=== PATIENT | male | born 1970 | race Caucasian/White ===

== ENCOUNTER 2016-10-29 22:33 | Emergency (ER) | payer SELFPAY ==
[~2016-10-29] VITALS: Ht 175.3 cm; Wt 90.7 kg
[~2016-10-29 22:33] MED LIST: ALBU17AE3 IH; BUDE6HFA IH; CEFU500T PO; CODE118S2 PO; NAPR500T PO; TIOT18CA IH
--- OUTSIDE RECORDS SUMMARY | 2016-10-29 22:41 | XMS REPORT ---
Author Author EMY GARCIA Organization [employer] Address Unknown Phone Unavailable Care Team Providers Care Cage Clerk Name Role Phone EMY GARCIA CP Unavailable Allergies No Known Allergies Problems Problem Type Condition Code Onset Dates Condition Status Problem Chronic obstructive pulmonary disease, unspecified COPD type J44.9 Active Problem Lumbago M54.5 Active Problem Asthma J45.909 Active Problem Tobacco abuse Z72.0 Active Problem Mental health disorder F99 Active Medications Medication Code System Code Instructions Start Date End Date Status Dosage ProAir HFA [facility] [address]-31 90 mcg/actuation Inhalation every 4 hrs Feb 2 puffs as needed Symbicort [facility] [address]-78 160-4.5 mcg/actuation Inhalation Twice a day Apr 27, 2014 June 26, 2015 inhale 1 puff by inhalation route 1 times per day in the morning and evening Results No Known Results Summary Purpose [employer] Submission
--- OUTSIDE RECORDS SUMMARY | 2016-10-29 22:41 | XMS REPORT | Continuity of Care Document ---
Author Author [facility] Organization [facility] Address Unknown Phone Unavailable Care Team Providers Care Strategy Specialist Name Role Phone Unverified, Unverified PCP Unavailable Source Comments Some departments are not documenting in the electronic medical record. If you do not see the information that you expected, contact Release of Information in the Health Information Management department at [phone] for further assistance in locating additional records.[facility] Active Allergies and Adverse Reactions Not on File Current Medications Not on file Active Problems Problem Noted Date Closed fracture of metacarpal bone(s), site unspecified 03/01/2008 Social History Tobacco Use Types Packs/Day Years Used Date Never Assessed Plan of Care Health Maintenance Due Date Last Done Comments Physical (Comprehensive) 1976 Exam Pertussis Vaccine 1980 Tetanus Vaccine 1986 Influenza Vaccine 12/18/2016 Results from Last 3 Months Not on file
--- OUTSIDE RECORDS SUMMARY | 2016-10-29 22:42 | XMS REPORT | Continuity of Care Document ---
Author Author [facility] Organization [facility] Address Unknown Phone Unavailable Allergies Active Description Code Type Severity Reaction Onset Reported/Identified Relationship to Patient Clinical Status Yes haloperidol [id number] Drug Allergy Unknown N/A 06/18/2011 Yes Haloperidol Lactate [id number] Drug Allergy Unknown N/A 06/18/2011 Yes Haldol Drug Allergy 04/01/2012 Yes Haldol Drug Allergy N/A N/A 04/01/2012 Medications Problems Date Dx Coded Attending Type Code Diagnosis Diagnosed By 05/13/2010 BRADY DO CHECO K 724.2 Lower Back Pain 05/13/2010 ABREU DO, CHECO K 724.4 LUMBAR RADICULOPATHY 05/13/2010 ABREU DO, CHECO K 724.8 Back Muscle Spasm 05/13/2010 724.2 Lower Back Pain 05/13/2010 724.4 LUMBAR RADICULOPATHY 05/13/2010 724.8 Back Muscle Spasm 05/13/2010 ABREU DO, CHECO K 724.2 Lower Back Pain 05/13/2010 ABREU DO, CHECO K 724.4 LUMBAR RADICULOPATHY 05/13/2010 ABREU DO, CHECO K 724.8 Back Muscle Spasm 05/13/2010 ABREU DO, CHECO K 724.2 Lower Back Pain 05/13/2010 ABREU DO, CHECO K 724.4 LUMBAR RADICULOPATHY 05/13/2010 ABREU DO, CHECO K 724.8 Back Muscle Spasm 05/13/2010 ABREU DO, CHECO K 724.2 Lower Back Pain 05/13/2010 ABREU DO, CHECO K 724.4 LUMBAR RADICULOPATHY 05/13/2010 ABREU DO, CHECO K 724.8 Back Muscle Spasm 05/13/2010 ABREU DO, CHECO K 724.2 Lower Back Pain 05/13/2010 ABREU DO, CHECO K 724.4 LUMBAR RADICULOPATHY 05/13/2010 ABREU DO, CHECO K 724.8 Back Muscle Spasm 05/13/2010 ARCHANA ZAMBRANO MD 724.2 Lower Back Pain 05/13/2010 ARCHANA ZAMBRANO MD 72Do.4 LUMBAR RADICULOPATHY 05/13/2010 ARCHANA ZAMBRANO MD 72oD.8 Back Muscle Spasm 12/02/2010 ABREU DO CHECO K 305.1 Nicotine Dependence 12/02/2010 ABREU DO CHECO K 496 Chronic Obstructive Pulmonary Disease 12/02/2010 ABREU DO CHECO K V65.42 Intervention And Counseling On Cessation Of Tobacco Use 12/02/2010 305.1 Nicotine Dependence 12/02/2010 496 Chronic Obstructive Pulmonary Disease 12/02/2010 V65.42 Intervention And Counseling On Cessation Of Tobacco Use 12/02/2010 ABREU DO CHECO K 305.1 Nicotine Dependence 12/02/2010 ABREU DO CHECO K 496 Chronic Obstructive Pulmonary Disease 12/02/2010 ABREU DO CHECO K V65.42 Intervention And Counseling On Cessation Of Tobacco Use 12/02/2010 ABREU DO CHECO K 305.1 Nicotine Dependence 12/02/2010 ABREU DO CHECO K 496 Chronic Obstructive Pulmonary Disease 12/02/2010 ABREU DO CHECO K V65.42 Intervention And Counseling On Cessation Of Tobacco Use 12/02/2010 ABREU DO CHECO K 305.1 Nicotine Dependence 12/02/2010 ABREU DO CHECO K 496 Chronic Obstructive Pulmonary Disease 12/02/2010 ABREU DO CHECO K V65.42 Intervention And Counseling On Cessation Of Tobacco Use 12/02/2010 ABREU DO CHECO K 305.1 Nicotine Dependence 12/02/2010 ABREU DO CHECO K 496 Chronic Obstructive Pulmonary Disease 12/02/2010 ABREU DO CHECO K V65.42 Intervention And Counseling On Cessation Of Tobacco Use 12/02/2010 ARCHANA ZAMBRANO MD 305.1 Nicotine Dependence 12/02/2010 ARCHANA ZAMBRANO MD 49Andrea Chronic Obstructive Pulmonary Disease 12/02/2010 ARCHANA ZAMBRANO MD V65.42 Intervention And Counseling On Cessation Of Tobacco Use 01/02/2011 ABREU DO CHECO K 780.57 Unspecified Sleep Apnea 01/02/2011 ABREU DO CHECO K 786.2 Cough 01/02/2011 SHY ABREU DOA Tamar 789.02 Abdominal Pain Left Upper Quadrant 01/02/2011 780.57 Unspecified Sleep Apnea 01/02/2011 786.2 Cough 01/02/2011 789.02 Abdominal Pain Left Upper Quadrant 01/02/2011 ABREU DO, CHECO K 780.57 Unspecified Sleep Apnea 01/02/2011 ABREU DO, CHECO K 786.2 Cough 01/02/2011 ABREU DO, CHECO K 789.02 Abdominal Pain Left Upper Quadrant 01/02/2011 ABREU DO, CHECO K 780.57 Unspecified Sleep Apnea 01/02/2011 ABREU DO, CHECO K 786.2 Cough 01/02/2011 ABREU DO, CHECO K 789.02 Abdominal Pain Left Upper Quadrant 01/02/2011 ABREU DO, CHECO K 780.57 Unspecified Sleep Apnea 01/02/2011 ABREU DO, CHECO K 786.2 Cough 01/02/2011 ABREU DO, CHECO K 789.02 Abdominal Pain Left Upper Quadrant 01/02/2011 ABREU DO, CHECO K 780.57 Unspecified Sleep Apnea 01/02/2011 ABREU DO, CHECO K 786.2 Cough 01/02/2011 ABREU DO, CHECO K 789.02 Abdominal Pain Left Upper Quadrant 01/02/2011 ARCHANA ZAMBRANO MD 780.57 Unspecified Sleep Apnea 01/02/2011 ARCHANA ZAMBRANO MD 786.2 Cough 01/02/2011 ARCHANA ZAMBRANO MD 789.02 Abdominal Pain Left Upper Quadrant 02/05/2011 ABREU DO, CHECO K 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 02/05/2011 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 02/05/2011 ABREU DO, CHECO K 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0 CHRONIC BRONCHITIS - SIMPLE 05/18/2011 ABREU DO, CHECO K 493.90 ASTHMA UNSPECIFIED 05/18/2011 ABREU DO, CHECO K 491.0 CHRONIC BRONCHITIS - SIMPLE 05/18/2011 ABREU DO, CHECO K 493.90 ASTHMA UNSPECIFIED 05/18/2011 ABREU DO, CHECO K 491.0 CHRONIC BRONCHITIS - SIMPLE 05/18/2011 ABREU DO CHECO K 493.90 ASTHMA UNSPECIFIED 05/18/2011 ARCHANA ZAMBRANO MD 491.0 CHRONIC BRONCHITIS - SIMPLE 05/18/2011 ARCHANA ZAMBRANO MD 493.90 ASTHMA UNSPECIFIED 06/18/2011 Ot 553.1 UMBILICAL HERNIA 04/01/2012 SHY ABREU DOA K 553.1 UMBILICAL HERNIA WITHOUT OBSTRUCTION OR GANGRENE 04/01/2012 553.1 UMBILICAL HERNIA WITHOUT OBSTRUCTION OR GANGRENE 04/01/2012 SHY ABREU DOA K 553.1 UMBILICAL HERNIA WITHOUT OBSTRUCTION OR GANGRENE 04/01/2012 SHY ABREU DOA K 553.1 UMBILICAL HERNIA WITHOUT OBSTRUCTION OR GANGRENE 04/01/2012 SHY ABREU DOA K 553.1 UMBILICAL HERNIA WITHOUT OBSTRUCTION OR GANGRENE 04/01/2012 ABREU DO CHECO K 553.1 UMBILICAL HERNIA WITHOUT OBSTRUCTION OR GANGRENE 06/03/2012 719.41 PAIN IN JOINT INVOLVING SHOULDER REGION 06/03/2012 SHY ABREU DOA K 719.41 PAIN IN JOINT INVOLVING SHOULDER REGION 06/03/2012 SHY ABREU DOA K 719.41 PAIN IN JOINT INVOLVING SHOULDER REGION 06/03/2012 SHY ABREU DOA K 719.41 PAIN IN JOINT INVOLVING SHOULDER REGION 06/03/2012 SHY ABREU DOA K 719.41 PAIN IN JOINT INVOLVING SHOULDER REGION 04/28/2013 CHECO ABREU DO K 305.1 TOBACCO ABUSE 04/28/2013 CHECO ABREU DO K 496 COPD 04/28/2013 CHECO ABREU DO K 724.2 LUMBAGO 04/28/2013 CHECO ABREU DO V65.42 COUNSELING - SMOKING CESSATION 04/28/2013 CHECO ABREU DO K 305.1 TOBACCO ABUSE 04/28/2013 SHY ABREU DOA K 496 COPD 04/28/2013 SHY ABREU DOA K 724.2 LUMBAGO 04/28/2013 CHECO ABREU DO V65.42 COUNSELING - SMOKING CESSATION 03/19/2016 Ot 789.02 ABDOMINAL PAIN, LEFT UPPER QUADRANT 03/19/2016 Ot 722.10 LUMBAR DISC DISPLACEMENT 03/19/2016 CLEO HUI Ot 305.1 TOBACCO USE DISORDER 03/19/2016 CLEO HUI Ot 496 CHR AIRWAY OBSTRUCT NEC 03/19/2016 CLEO HUI Ot 553.1 UMBILICAL HERNIA 03/20/2016 MINERVA SHANNON APRN Ot F17.210 NICOTINE DEPENDENCE, CIGARETTES, UNCOMPL 03/20/2016 MINERVA SHANNON APRN Ot J44.0 CHRONIC OBSTRUCTIVE PULMON DISEASE W ACU 03/20/2016 MINERVA SHANNON APRN Ot R07.81 PLEURODYNIA 03/20/2016 MINEVRA SHANNON APRN Ot R07.89 OTHER CHEST PAIN Procedures Code Description Performed By Performed On JASWANT MANRIQUEZ 04/02/2012 79352 XRAY CHEST 2 VIEW 04/28/[address] CHEST W/O DYE 04/28/[address] ABDOMEN W/ AND W/O CONTRAST 04/28/2013 Results Test Result Range Complete blood count (CBC) with automated white blood cell (WBC) differential - 03/19/16 11:26 Blood leukocytes automated count (number/volume) 16.2 10*3/ uL 4.3-11.0 Blood erythrocytes automated count (number/volume) 4.73 10*6 /uL 4.35-5.85 Venous blood hemoglobin measurement (mass/volume) 14.9 g/dL 13.3-17.7 Blood hematocrit (volume fraction) 43 % 40-54 Automated erythrocyte mean corpuscular volume 92 [foz_us] 80-99 Automated erythrocyte mean corpuscular hemoglobin (mass per erythrocyte) 32 pg 25-34 Automated erythrocyte mean corpuscular hemoglobin concentration measurement ( mass/volume) 34 g/dL 32-36 Automated erythrocyte distribution width ratio 13.1 % 10.0-14.5 Automated blood platelet count (count/volume) 244 10*3/uL 130-400 Automated blood platelet mean volume measurement 9.3 [foz_us ] 7.4-10.4 Automated blood neutrophils/100 leukocytes 70 % 42-75 Automated blood lymphocytes/100 leukocytes 21 % 12-44 Blood monocytes/100 leukocytes 5 % 0-12 Automated blood eosinophils/100 leukocytes 4 % 0-10 Automated blood basophils/100 leukocytes 0 % 0-10 Blood neutrophils automated count (number/volume) 11.3 10*3 1.8-7.8 Blood lymphocytes automated count (number/volume) 3.4 10*3 1.0-4.0 Blood monocytes automated count (number/volume) 0.8 10*3 0.0-1.0 Automated eosinophil count 0.6 10*3/uL 0.0-0.3 Automated blood basophil count (count/volume) 0.0 10*3/uL 0.0-0.1 PT panel in platelet poor plasma by coagulation assay - 03/19/16 11:26 Prothrombin time (PT) in platelet poor plasma by coagulation assay 12.1 s 12.2-14.7 INR in platelet poor plasma or blood by coagulation assay 0.9 0.8-1.4 Activated partial thromboplastin time (aPTT) in platelet poor plasma bycoagulation assay - 03/19/16 11:26 Activated partial thromboplastin time (aPTT) in platelet poor plasma bycoagulation assay 29 s 24-35 Fibrin D-dimer FEU measurement in platelet poor plasma (mass/volume) - 11:26 Fibrin D-dimer FEU measurement in platelet poor plasma (mass/volume) < ug/mL 0.00-0.49 Blood manual differential performed detection - 03/19/16 11:26 Blood monocytes/100 leukocytes 4 % NRG Manual blood segmented neutrophils/100 leukocytes 72 % NRG Blood band neutrophils/100 leukocytes 0 % NRG Manual blood lymphocytes/100 leukocytes 21 % NRG Manual eosinophils/100 leukocytes in nose 3 % NRG Manual blood basophils/100 leukocytes 0 % NRG Blood erythrocyte morphology finding identification [facility] Comprehensive metabolic panel - 03/19/16 11:26 Serum or plasma sodium measurement (moles/volume) 142 mmol/ L 135-145 Serum or plasma potassium measurement (moles/volume) 4.2 mmol/L 3.6-5.0 Serum or plasma chloride measurement (moles/volume) 109 mmol /L 98-107 Carbon dioxide 23 mmol/L 21-32 Serum or plasma anion gap determination (moles/volume) 10 mmol/L 5-14 Serum or plasma urea nitrogen measurement (mass/volume) 13 mg/dL 7-18 Serum or plasma creatinine measurement (mass/volume) 0.87 mg /dL 0.60-1.30 Serum or plasma urea nitrogen/creatinine mass ratio 15 NRG Serum or plasma creatinine measurement with calculation of estimated glomerular filtration rate > NRG Serum or plasma glucose measurement (mass/volume) 108 mg/dL 70-105 Serum or plasma calcium measurement (mass/volume) 8.9 mg/dL 8.5-10.1 Serum or plasma total bilirubin measurement (mass/volume) 0.3 mg/dL 0.1-1.0 Serum or plasma alkaline phosphatase measurement (enzymatic activity/volume) 50 U/L 40-136 Serum or plasma aspartate aminotransferase measurement (enzymatic activity/ volume) 16 U/L 5-34 Serum or plasma alanine aminotransferase measurement (enzymatic activity/volume ) 16 U/L 0-55 Serum or plasma protein measurement (mass/volume) 6.9 g/dL 6.4-8.2 Serum or plasma albumin measurement (mass/volume) 4.1 g/dL 3.2-4.5 Magnesium - 03/19/16 11:26 Magnesium 2.4 mg/dL 1.8-2.4 Serum or plasma troponin i.cardiac measurement (mass/volume) - 03/19/16 11:26 Serum or plasma troponin i.cardiac measurement (mass/volume) < ng/mL <0.30 Myoglobin, serum - 03/19/16 11:26 Myoglobin, serum 27.7 ng/mL 10.0-92.0 Lipase - 03/19/16 11:26 Lipase 26 U/L 8-78 Encounters ACCT No. Visit Date/Time Discharge Status Pt. Type Provider Facility Loc./Unit Complaint [id number] 03/19/2016 11:11:00 2015 12:48:00 DIS Outpatient MINERVA SHANNON APRN [facility] ER CHEST PAIN/SOA [id number] 05/09/2013 09:47:00 2013 23:59:59 CLS Outpatient CLEO HUI [facility] RAD F/U HERNIA,COPD,CHRONIC SMOKER, CHRONIC COUGH [id number] 03/19/2016 12:53:00 Document Registration [id number] 06/18/2011 13:25:00 Document Registration [id number] 04/16/2011 07:22:00 Document Registration [id number] 01/05/2011 15:06:00 Document Registration
--- OUTSIDE RECORDS SUMMARY | 2016-10-29 22:42 | XMS REPORT ---
Author Author EMY GARCIA Organization [employer] Address Unknown Phone Unavailable Care Team Providers Care Director Writing Name Role Phone EMY GARCIA CP Unavailable Allergies, Adverse Reactions, Alerts Substance Reaction Event Type Haldol muscle tightness Drug Allergy Problems Problem Type Condition Code Onset Dates Condition Status Assessment Mental health disorder F99 Active Assessment Asthma J45.909 Active Assessment Tobacco abuse Z72.0 Active Problem Chronic obstructive pulmonary disease, unspecified COPD type J44.9 Active Problem Lumbago M54.5 Active Problem Asthma J45.909 Active Assessment Chronic obstructive pulmonary disease, unspecified COPD type J44.9 Active Assessment Lumbago M54.5 Active Problem Tobacco abuse Z72.0 Active Problem Mental health disorder F99 Active Medications Medication Code System Code Instructions Start Date End Date Status Dosage Symbicort [facility] [address]-87 160-4.5 mcg/actuation Inhalation Twice a day Apr 27, 2014 June 26, 2015 inhale 1 puff by inhalation route 1 times per day in the morning and evening Cyclobenzaprine HCl [facility] [address]-29 10 MG Orally at bedtime as needed Mar 28, 2015 Apr 27, 2015 1 tablet Mobic [facility] [address]-38 15 MG Orally Once a day Mar 28, 2015 June 26, 2015 1 tablet with food ProAir HFA [facility] [address]-82 90 mcg/actuation Inhalation every 4 hrs Feb 2 puffs as needed Procedures Procedure Coding System Code Date Office Visit, New Pt., Level 4 CPT-4 96006 Mar 28, 2015 Vital Signs Date/Time: Mar 28, 2015 Temperature 98.3 F Weight 197.0 lbs Height 69.3 in BMI 28.84 Index Blood Pressure Diastolic 85 mmHg Blood Pressure Systolic 110 mmHg Cardiac Monitoring Heart Rate 76 bpm Results No Known Results Summary Purpose [employer] Submission
[2016-10-29] MEDS ORDERED: RT-ALBUTEROL/IPRATROPIUM 3 ML (DUONEB) VIAL INH ONE (23:00)
[2016-10-30] MEDS ORDERED: RX-ALBUTEROL INHALER (VENTOLIN HFA) 18 GM IH STA (00:06)
[2016-10-30] MEDS ORDERED: BENZONATATE 100 MG (TESSALON) CAPSULE PO ONE (00:15)
[2016-10-30] MEDS ORDERED: RT-ALBUTEROL/IPRATROPIUM 3 ML (DUONEB) VIAL INH ONE (00:15)
[2016-10-30] MEDS ORDERED: AZITHROMYCIN 250 MG TAB (ZITHROMAX) PO ONE (00:15)
[2016-10-30] MEDS ORDERED: predniSONE 20 MG TAB PO ONE (00:15)
[2016-10-30] MEDS ORDERED: PRD20T PO (00:16)
[2016-10-30] MEDS ORDERED: BENZ200C51 PO (00:16)
[2016-10-30] MEDS ORDERED: AZIT250T5 PO (00:16)
--- NOTE | 2016-10-30 00:16 | ED Respiratory ---
General Chief Complaint: Respiratory Problems Stated Complaint: SOB,COUGH,ABD PAIN Nursing Triage Note: C/O SOA worse at night for the past 3 weeks Source: patient Exam Limitations: no limitations History of Present Illness Time seen by provider: 22:41 Initial Comments This 46-year-old man presents to the emergency room with shortness of air cough. This is caused difficulty sleeping. He has muscle soreness in the upper abdomen from persistent coughing. He experiences lightheadedness, dizziness, and near syncope after coughing fits. He has difficulty hearing during these episodes. Cough is productive. He previously used inhalers and nebulizer treatments but has not used them in quite some time as he has not been following with a physician. He continues to smoke. He has also experienced some posttussive vomiting. Allergies and Home Medications Allergies Coded Allergies: Haloperidol Lactate (Verified Allergy, 06/18/11) haloperidol (Verified Allergy, 06/18/11) Home Medications Azithromycin 250 Mg Tablet, 250 MG PO DAILY, #4 Prescribed by: CLEO OLIVER on 10/30/1615 Benzonatate 200 Mg Capsule, 200 MG PO TID, #20 Prescribed by: CLEO OLIVER on 10/30/1615 Prednisone 20 Mg Tab, 20 MG PO DAILY, #4 Prescribed by: CLEO OLIVER on 10/30/1615 Constitutional: no symptoms reported EENTM: no symptoms reported Respiratory: see HPI Cardiovascular: no symptoms reported Gastrointestinal: see HPI Genitourinary: no symptoms reported Musculoskeletal: see HPI Skin: no symptoms reported Psychiatric/Neurological: No Symptoms Reported Hematologic/Lymphatic: No Symptoms Reported Past Wwttuas-Ovzaos-Xlptuj Hx Patient Social History Alcohol Use: Denies Use Recreational Drug Use: No Smoking Status: Current Everyday Smoker Type Used: Cigarettes Recent Foreign Travel: No Contact w/Someone Who Travel: No Recent Infectious Disease Expo: No Recent Hopitalizations: No Surgeries HX Surgeries: Yes (hernia ) Surgeries: Orthopedic Respiratory Hx Respiratory Disorders: Yes Respiratory Disorders: Sleep Apnea, COPD Cardiovascular Hx Cardiac Disorders: No Neurological Hx Neurological Disorders: No Genitourinary Hx Genitourinary Disorders: No Gastrointestinal Hx Gastrointestinal Disorders: No Musculoskeletal Hx Musculoskeletal Disorders: No Endocrine Hx Endocrine Disorders: No HEENT HX ENT Disorders: No Cancer Hx Cancer: No Psychosocial Hx Psychiatric Problems: No Physical Exam Vital Signs Vital Sign - Last 12Hours 10/29/16 10/29/16 22:40 23:01 Temp 98.2 Pulse 83 Resp 18 B/P (MAP) 113/76 Pulse Ox 96 O2 Delivery Room Air Capillary Refill : Less Than 3 Seconds General Appearance: WD/WN, mild distress HEENT: PERRL/EOMI, normal ENT inspection, TMs normal, pharynx normal Neck: supple, normal inspection Respiratory: lungs clear, normal breath sounds, no respiratory distress, no accessory muscle use Cardiovascular: regular rate, rhythm, no edema, no murmur Gastrointestinal: normal bowel sounds, soft, tenderness (Mild tenderness below the anterior costal margins) Extremities: normal inspection, no pedal edema Neurologic/Psychiatric: certified performance technologist II-XII nml as tested, no motor/sensory deficits, alert, normal mood/affect, oriented x 3 Skin: normal color, warm/dry Progress/Results/Core Measures Results/Orders My Orders Orders - CLEO WARD MD Chest Pa/Lat (2 View) (10/29/16 22:52) Albuterol/Ipra Inhalation Soln (Duoneb I (10/29/16 23:00) Svn Sm Volume Nebulizer Rt-Rfs (10/29/16 22:52) Benzonatate Capsule (Tessalon Perles) (10/30/16 00:15) Prednisone Tablet (Deltasone Tablet) (10/30/16 00:15) Azithromycin Tablet (Zithromax Tablet) (10/30/16 00:15) Albuterol/Ipra Inhalation Soln (Duoneb I (10/30/16 00:15) Svn Sm Volume Nebulizer Rt-Rfs (10/30/16 00:06) Rx-Albuterol Inhaler (Rx-Ventolin Hfa) (10/30/16 00:06) Medications Given in ED Current Medications Medications Dose Ordered Sig/Everardo Route Start Time Stop Time Status Last Admin Dose Admin Albuterol/ Ipratropium 3 ml ONCE ONCE INH 10/29/16 23:00 10/29/16 23:01 DC 10/29/16 23:01 3 ML Albuterol/ Ipratropium 3 ml ONCE ONCE INH 10/30/16 00:15 10/30/16 00:16 DC 10/30/16 00:17 3 ML Azithromycin 500 mg ONCE ONCE PO 10/30/16 00:15 10/30/16 00:16 DC 10/30/16 00:20 500 MG Benzonatate 200 mg ONCE ONCE PO 10/30/16 00:15 10/30/16 00:16 DC 10/30/16 00:20 200 MG Prednisone 40 mg ONCE ONCE PO 10/30/16 00:15 10/30/16 00:16 DC 10/30/16 00:20 40 MG Vital Signs/I&O Vital Sign - Last 12Hours 10/29/16 10/29/16 10/30/16 10/30/16 22:40 23:01 00:23 00:26 Temp 98.2 Pulse 83 74 Resp 18 18 B/P (MAP) 113/76 Pulse Ox 96 94 97 90 O2 Delivery Room Air Room Air Room Air Blood Pressure Mean: 88 Progress Note : Progress Note Patient received DuoNeb treatments 2. His first dose of prednisone was given in the ER along with his first dose of azithromycin. Diagnostic Imaging Diagonstic Imaging: Xray Plain Films/CT/US/NM/MRI: chest Comments Chest x-ray viewed by me. Report available. There are subtle interstitial markings consistent with bronchitis or viral illness. No consolidation or infiltrate to suggest pneumonia. Departure Impression Impression: Primary Impression: Acute bronchitis Qualified Codes: J20.9 - Acute bronchitis, unspecified Additional Impression: COPD exacerbation Disposition: 01 HOME, SELF-CARE Condition: Improved Departure-Patient Inst. Decision time for Depature: 00:11 Referrals: NO,LOCAL PHYSICIAN (PCP/Family) Primary Care Physician Patient Instructions: Acute Bronchitis, Adult (DC), Exacerbation of COPD Add. Discharge Instructions: Work toward quitting smoking and reduce your smoking is much as possible in the meantime. Ask your primary care provider for assistance if needed. You may use your inhaler up to 4 puffs and a 4 hour period of time as needed for cough or shortness of air. Complete your antibiotics and steroids as prescribed. Follow-up with your primary care provider as soon as possible. Return to the ER symptoms worsen. All discharge instructions reviewed with patient and/or family. Voiced understanding. Scripts Azithromycin (Azithromycin) 250 Mg Tablet 250 MG PO DAILY, #4 TAB Prov: CLEO WARD MD 10/30/16 Benzonatate (Benzonatate) 200 Mg Capsule 200 MG PO TID, #20 CAP Prov: CLEO WARD MD 10/30/16 Prednisone (Prednisone) 20 Mg Tab 20 MG PO DAILY, #4 TAB Prov: CLEO WARD MD 10/30/16 CLEO WARD MD Oct 30, 2016 00:16
[2016-10-30 00:23] VITALS: BP 108/72
--- NOTE | 2016-10-30 07:30 | Diagnostic Imaging Report ---
PA and lateral views of the chest. INDICATION: Cough. FINDINGS: There is slight prominence of the interstitial markings compared to 03/19/2016. This could correlate with viral or interstitial pneumonia in the appropriate clinical setting. The lungs are hyperinflated. The heart size is normal. No effusion or pneumothorax. The mediastinum and balaji appear unremarkable. IMPRESSION: Slight prominence of the interstitial markings compared to the prior exam without focal airspace consolidation. This could correlate with viral or mild interstitial pneumonia in the appropriate clinical setting. Hyperinflated lungs. Dictated by: Dictated on workstation # [id number]
== END 2016-10-30 00:24 | disposition home or self-care (01) ==
LOC: EDUNIT# 22:33 → ER 22:36
DX: J44.0 Chronic obstructive pulmonary disease with (acute) lower respiratory infection (principal); F17.210 Nicotine dependence, cigarettes, uncomplicated
CPT/HCPCS: 71020; 94640; 94664; 99283

== ENCOUNTER 2018-06-21 09:18 | Emergency (ER) | payer OTHER ==
[~2018-06-21] VITALS: Ht 182.9 cm; Wt 90.7 kg
[~2018-06-21 09:18] MED LIST changes: +AZIT250T12 PO; +BENZ200C51 PO; -CODE118S2 PO; +CODE118S4 PO; +NAPR-1071 PO; -NAPR500T PO; +PRD20T PO
--- OUTSIDE RECORDS SUMMARY | 2018-06-21 09:26 | XMS REPORT | Clinical Summary ---
Author Author [facility] Organization [facility] Address Unknown Phone Unavailable Care Team Providers Care Delicatessen Clerk Name Role Phone Unverified, Unverified Md PCP Unavailable Hi Workman MD Unavailable Source Comments Some departments are not documenting in the electronic medical record. If you do not see the information that you expected, contact Release of Information in the Health Information Management department at [phone] for further assistance in locating additional records.[facility] Allergies Not on File Medications Not on file Active Problems Problem Noted Date Closed fracture of metacarpal bone(s), site unspecified 03/01/2008 Social History Date Tobacco Use Types Packs/Day Years Used Never Assessed Sex Assigned at Date Recorded Not on file Industry Job Start Date Occupation Not on file Not on file Not on file Travel End Travel History Travel Start No recent travel history available. Last Filed Vital Signs Not on file Plan of Treatment Health Maintenance Due Date Last Done Comments PHYSICAL (COMPREHENSIVE) 1976 EXAM HIV SCREENING 1984 DTAP/TDAP VACCINES ( - 08/31/1987 Tdap) INFLUENZA VACCINE 11/17/2018 Results Not on filefrom Last 3 Months
--- OUTSIDE RECORDS SUMMARY | 2018-06-21 09:26 | XMS REPORT ---
Author Author ANNABEL PERSAUD Organization [facility] Address [address] [place] [address] Care Team Providers Care Sales Recruiting Coordinator Name Role Phone HUNGANNABEL Unavailable PROBLEMS Type Condition ICD9-CM Code FKB32-TT Code Onset Dates Condition Status SNOMED Code Problem Chronic obstructive pulmonary disease, unspecified COPD type J44.9 Active 72436203 Problem Asthma J45.909 Active 601101988 Problem Tobacco abuse Z72.0 Active 74532408 Problem Panlobular emphysema J43.1 Active 4935946 Problem Lumbago with sciatica, left side M54.42 Active 357477556 Problem Mental health disorder F99 Active 90082553 Problem Lumbago M54.5 Active 494670342 Problem Obstructive sleep apnea syndrome G47.33 Active 03487460 Problem Other chronic pain G89.29 Active 98425731 ALLERGIES Substance Reaction Event Type Date Status Haldol muscle tightness Drug Allergy Sep, Active ENCOUNTERS Encounter Location Date Diagnosis [place] [id number] [place] [address] 85330- 6829 Sep, Panlobular emphysema J43.1 [place] [id number] [place] [address] 12191- 5713 Sep, Lipoma of back D17.1 [place] [id number] [place] [address] 63503- 9852 Sep, [place] [id number] [place] [address] 74190- 0029 August, Panlobular emphysema J43.1 ; Lipoma of back D17.1 ; Tobacco abuse Z72.0 and Tobacco abuse counseling Z71.6 [place] [id number] [place] [address] 29125- 3525 Jul, [place] [id number] [place] [address] 01366- 0874 Jun, Asthma J45.909 [place] [id number] [place] [address] 82868- 1195 Apr, Foreign body in right foot, initial encounter S90.851A [place] [address] [address] 1988 08 Dec, 2016 Lumbago with sciatica, left side M54.42 ; Other chronic pain G89.29 ; Chronic obstructive pulmonary disease, unspecified COPD type J44.9 and Obstructive sleep apnea syndrome G47.33 [place] [id number] [place] [address] 66835- 9041 Dec, Lumbago with sciatica, left side M54.42 ; Other chronic pain G89.29 ; Chronic obstructive pulmonary disease, unspecified COPD type J44.9 and Obstructive sleep apnea syndrome G47.33 [place] [id number] [place] [address] 52264- 7514 Nov, [place] [id number] [place] [address] 61510- 1218 Nov, [facility] [id number] [place] [address] 38778- 4287 Nov, Cough R05 and Chronic obstructive pulmonary disease, unspecified COPD type J44.9 [place] [id number] [place] [address] 06306- 6208 Oct, [facility] [id number] [place] [address] 66612 -1275 Oct, Cough R05 [place] [id number] [place] [address] 86989- 7978 Mar, [place] [id number] [place] [address] 06122- 9360 Mar, Chronic obstructive pulmonary disease, unspecified COPD type J44.9 ; Lumbago M54.5 ; Asthma J45.909 ; Tobacco abuse Z72.0 and Mental health disorder F99 [facility] [address] [address] 30[address] 14 Jul, 2014 [facility] [id number] [address] 2973 Jul, [facility] [address] [address] 2005 Apr, [facility] [address] [facility] [id number] [address] 6617 Apr, [facility] [id number] [place] [address] 11578- 3248 Apr, [facility] [address] [address]- 6311 Apr, [facility] [id number] [place] [address] 52144- 4157 Apr, [facility] [address] [address]- 9300 Apr, [facility] [address] [address]- 5200 Apr, [facility] [address] [address]- 8234 Apr, [facility] [address] [address]- 2930 Mar, [facility] [id number] [address]- 3837 Mar, [facility] [address] 7926 Feb, [facility] [address] [address]- 3564 Feb, [facility] [address] [address]- 5984 Feb, [facility] [address] [id number] [place] [address]- 3876 Feb, [facility] [place] [facility] [address] [id number] [place] [address]- 9286 Sep, [facility] [place] [facility] [address] [id number] [place] [address]- 0466 Jul, [facility] [place] [facility] [address] [id number] [place] [address]- 2436 Jun, [facility] [address] [id number] [place] [address]- 1456 18 May, 2012 [facility] [place] [facility] [address] [id number] [place] [address]- 2756 15 May, 2012 [facility] [address] [id number] [place] [address]- 0966 08 May, 2012 [facility] [address] [id number] [place] [address]- 4136 May, [facility] [address] [id number] [place] [address]- 1746 Apr, [facility] [place] [facility] [address] [facility] [id number] [place] [address]- 0696 29 Mar, 2012 [facility] [place] [facility] [address] [id number] [place] [address]- 4626 14 Mar, 2012 [facility] [place] [facility] [address] [id number] [address]- 5826 14 Mar, 2012 [facility] [place] [facility] [address] [id number] [place] [address]- 1596 14 Mar, 2012 [facility] [place] [facility] [address] [id number] [place] [address]- 8646 14 Mar, 2012 [facility] [place] [facility] [address] [id number] [place] [address]- 7016 30 Feb, 2012 [facility] [place] [facility] [address] [id number] [place] [address]- 2227 Feb, [facility] [place] [facility] [address] [id number] [place] [address]- 5266 Feb, [facility] [place] [facility] [address] [id number] [place] [address]- 0011 Feb, [facility] [place] [facility] [address] [id number] [place] [address]- 5051 Feb, [facility] [place] [facility] [address] [id number] [place] [address]- 2733 Feb, [facility] [place] [facility] [address] [id number] [place] [address]- 5828 Feb, [facility] [place] [facility] [address] [id number] [place] [address]- 7889 Jan, [facility] [place] [facility] [address] [id number] [place] [address]- 0386 Jan, [facility] [place] [facility] [address] [id number] [place] [address]- 6678 Jan, [facility] [place] [facility] [address] [id number] [place] [address]- 3715 Jan, [facility] [place] [facility] [address] [facility] [id number] [place] [address]- 8085 Oct, [facility] [place] [facility] [address] [facility] [id number] [place] [address]- 1169 Jun, [facility] [place] [facility] [address] [id number] [place] [address]- 4175 May, [facility] [place] [facility] [address] [id number] [place] [address]- 5782 May, [facility] [place] [facility] [address] [facility] [id number] [place] 9365 May, [facility] [place] [facility] [address] [facility] [id number] [place] [address]- 1875 Apr, [facility] [id number] [address]- 2206 Apr, [facility] [address] [address]- 6956 Apr, [facility] [address] [address] 2546 Apr, [facility] [id number] [place] [address] 15331 2546 Apr, [facility] [address] [address]- 6622 Feb, [facility] [address] [place] [address] 82705- 2446 Jan, [facility] [address] [place] [address] 97175- 9306 Dec, [facility] [address] [address]- 9326 Nov, IMMUNIZATIONS No Known Immunizations SOCIAL HISTORY Never Assessed REASON FOR VISIT Lipoma Removal-NAHUN gregory, another lipoma on left side of lower back PLAN OF CARE Activity Details Follow Up 10 days Reason:suture removal Future/Pending Procedure EXC BENIGN LEISON 2.1-3 cm (specify location) VITAL SIGNS Height 69.3 in 2017-10-12 Weight 215.3 lbs 2017-10-12 Temperature 97.9 degrees Fahrenheit 2017-10-12 Heart Rate 64 bpm 2017-10-12 Respiratory Rate 20 2017-10-12 Oximetry 95 % 2017-10-12 BMI 31.52 kg/m2 2017-10-12 Blood pressure systolic 130 mmHg 2017-10-12 Blood pressure diastolic 84 mmHg 2017-10-12 MEDICATIONS Medication Instructions Dosage Frequency Start Date End Date Duration Status [place] 5-325 MG Orally every 6 hrs 1 tablet as needed 6h August, Active Cyclobenzaprine HCl 10 mg Orally 2 times a day 1 tablet as needed 12h 07 Dec, 2016 Active Nebulizer Active Neurontin 800 MG 1 tablet 8h 10 Apr, 2013 Not-Taking Chantix 1 MG Orally Twice a day 1 tablet 12h August, Feb, 30 day(s) Active Albuterol Sulfate (2.5 MG/3ML) 0.083% Inhalation 4 times a day 3 ml as needed 6h August, Active ProAir HFA 108 (90 Base) MCG/ACT Inhalation every 6 hrs 2 puffs as needed 6h August, Active Flovent HFA 110 MCG/ACT Inhalation Twice a day 1 puff 12h Jun, Feb, 30 days Active RESULTS No Results PROCEDURES Procedure Date Ordered Result Body Site EXC TR-EXT B9 GASPER 2.1-3 CM October 12, 2017 INSTRUCTIONS MEDICATIONS ADMINISTERED No Known Medications MEDICAL (GENERAL) HISTORY Type Description Date Medical History Counseling on substance use and abuse Medical History Umbilical hernia without mention of obstruction or gangrene Medical History COPD Medical History degenerative disease lumbosacral spine Medical History foot injury Surgical History hernia repair Surgical History plastic surgery from dog attack left ear Surgical History Right arm reconstruction from boxing injury Hospitalization History Surgeries Hospitalization History infection 04/2013
--- OUTSIDE RECORDS SUMMARY | 2018-06-21 09:26 | XMS REPORT ---
Author Author ANNABEL PERSAUD Organization [facility] Address [address] [place] [address] Care Team Providers Care Biomass Boiler Operator Name Role Phone ANNABEL PERSAUD Unavailable PROBLEMS Type Condition ICD9-CM Code RJA24-OU Code Onset Dates Condition Status SNOMED Code Problem Chronic obstructive pulmonary disease, unspecified COPD type J44.9 Active 44594375 Problem Asthma J45.909 Active 709670080 Problem Tobacco abuse Z72.0 Active 36792481 Problem Panlobular emphysema J43.1 Active 3910300 Problem Lumbago with sciatica, left side M54.42 Active 202487349 Problem Mental health disorder F99 Active 59730851 Problem Lumbago M54.5 Active 549766936 Problem Obstructive sleep apnea syndrome G47.33 Active 54083623 Problem Other chronic pain G89.29 Active 44603883 ALLERGIES No Information ENCOUNTERS Encounter Location Date Diagnosis [place] [id number] [place] [address] 50368- 2438 Sep, Panlobular emphysema J43.1 [place] [id number] [place] [address] 98833- 1654 Sep, Lipoma of back D17.1 [place] [id number] [place] [address] 49634- 8642 Sep, [place] [id number] [place] [address] 30376- 9308 August, Panlobular emphysema J43.1 ; Lipoma of back D17.1 ; Tobacco abuse Z72.0 and Tobacco abuse counseling Z71.6 [place] [id number] [place] [address] 54113- 3880 Jul, [place] [address] [place] [address]- 7651 Jun, Asthma J45.909 [place] [id number] [place] [address] 47772- 9052 Apr, Foreign body in right foot, initial encounter S90.851A [place] [id number] [place] [address] 50396- 0158 Dec, Lumbago with sciatica, left side M54.42 ; Other chronic pain G89.29 ; Chronic obstructive pulmonary disease, unspecified COPD type J44.9 and Obstructive sleep apnea syndrome G47.33 [place] [id number] [place] [address] 14205- 0524 Dec, Lumbago with sciatica, left side M54.42 ; Other chronic pain G89.29 ; Chronic obstructive pulmonary disease, unspecified COPD type J44.9 and Obstructive sleep apnea syndrome G47.33 [place] [address] [address]- 5521 Nov, [place] [id number] [place] [address] 11545- 7265 Nov, [place] [id number] [place] [address] 22348- 5072 Nov, Cough R05 and Chronic obstructive pulmonary disease, unspecified COPD type J44.9 [facility] [id number] [place] [address] 04318- 6266 Oct, [facility] [id number] [place] [address] 77723 -1263 Oct, Cough R05 [place] [id number] [place] [address] 92925- 1890 Mar, [place] [id number] [place] [address] 75105- 5199 Mar, Chronic obstructive pulmonary disease, unspecified COPD type J44.9 ; Lumbago M54.5 ; Asthma J45.909 ; Tobacco abuse Z72.0 and Mental health disorder F99 [facility] [address] [id number] [place] [address]- 7996 14 Jul, 2014 [facility] [address] [id number] [place] [address]- 3237 Jul, [facility] [address] [facility] [id number] [place] [address]- 5973 Apr, [facility] [address] [id number] [place] [address]- 7196 Apr, [facility] [address] [id number] [place] [address]- 5846 Apr, [facility] [address] [facility] [id number] [place] [address]- 8002 Apr, [facility] [address] [facility] [id number] [place] [address]- 9805 Apr, [facility] [address] [facility] [id number], [place] [address]- 9469 Apr, [facility] [address] [facility] [id number] [place] [address]- 7286 Apr, [facility] [address] [facility] [id number], [place] [address]- 2979 Apr, [facility] [address] [facility] [id number], [place] [address]- 5527 Mar, [facility] [address] [id number], [place] [address]- 1618 Mar, [facility] [place] [facility] [address] [facility] [id number] [place] [address]- 9937 Feb, [facility] [address] [facility] [id number], [place] [address]- 1569 Feb, [facility] [place] [facility] [address] [facility] [id number] [place] [address]- 3042 Feb, [facility] [address] [id number] [place] [address]- 2830 Feb, [facility] [address] [id number] [place] [address]- 8897 Sep, [facility] [place] [facility] [address] [id number] [place] [address]- 4664 29 Jul, 2012 [facility] [address] [id number] [place] [address]- 1006 Jun, [facility] [place] [facility] [address] [id number] [place] [address]- 8938 18 May, 2012 [facility] [place] [facility] [address] [id number] [place] [address]- 1550 15 May, 2012 [facility] [place] [facility] [address] [id number] [place] [address]- 7886 08 May, 2012 [facility] [address] [facility] [id number] [place] [address]- 7215 07 May, 2012 [facility] [address] [id number] [place] [address]- 2598 Apr, [facility] [address] [id number] [place] [address]- 9257 29 Mar, 2012 [facility] [address] [id number] [place] [address]- 0796 14 Mar, 2012 [facility] [place] [facility] [address] [id number] [place] [address] 2546 14 Mar, 2012 [facility] [place] [facility] [address] [id number] [place] [address] 2543 14 Mar, 2012 [facility] [place] [facility] [address] [id number] [place] [address]- 6882 14 Mar, 2012 [facility] [place] [facility] [address] [id number] [place] [address]- 6858 30 Feb, 2012 [facility] [place] [facility] [address] [id number] [place] [address]- 9853 Feb, [facility] [place] [facility] [address] [id number] [place] [address]- 2263 Feb, [facility] [place] [facility] [address] [id number] [place] [address]- 0664 Feb, [facility] [place] [facility] [address] [id number] [place] [address]- 0269 Feb, [facility] [place] [facility] [address] [id number] [place] [address]- 8685 Feb, [facility] [place] [facility] [address] [id number] [place] [address]- 6215 Feb, [facility] [place] [facility] [address] [id number] [place] [address]- 3646 Jan, [facility] [place] [facility] [address] [id number] [place] [address]- 3578 Jan, [facility] [place] [facility] [address] [id number] [place] [address]- 1646 Jan, [facility] [place] [facility] [address] [id number] [place] [address]- 0324 Jan, [facility] [place] [facility] [address] [id number] [place] [address]- 9399 Oct, [facility] [place] [facility] [address] [facility] [id number] [place] [address]- 3300 Jun, [facility] [place] [facility] [address] [id number], [place] [address]- 7054 May, [facility] [place] [facility] [address] [id number] [place] [address]- 2107 May, [facility] [place] [facility] [address] [id number] [place] [address]- 4984 May, [facility] [place] [facility] [address] [id number] [place] [address]- 9769 Apr, [facility] [place] [facility] [address] [id number], [place] [address]- 1696 Apr, [facility] [address] [id number] [address]- 2506 Apr, [facility] [address] [id number] [address]- 4496 Apr, [facility] [id number] [address]- 2546 Apr, [facility] [address], [place] [address]- 2708 Feb, [facility] [address], [place] [address]- 5986 Jan, [facility] [address], [place] [address]- 9456 Dec, [facility] [id number] [address]- 7066 Nov, IMMUNIZATIONS No Known Immunizations SOCIAL HISTORY Never Assessed REASON FOR VISIT Requests return call PLAN OF CARE VITAL SIGNS MEDICATIONS Medication Instructions Dosage Frequency Start Date End Date Duration Status Bactrim DS 800-160 MG Orally Twice a day 1 tablet 12h Sep, Oct, 10 day(s) Active [place] 5-325 MG Orally every 6 hrs 1 tablet as needed 6h Sep, Active RESULTS No Results PROCEDURES No Known procedures INSTRUCTIONS MEDICATIONS ADMINISTERED No Known Medications MEDICAL [...]
--- OUTSIDE RECORDS SUMMARY | 2018-06-21 09:26 | XMS REPORT | Clinical Summary ---
Author Author [facility] Organization [facility] Address Unknown Phone Unavailable Care Team Providers Care Geospatial Applications Developer Name Role Phone PCP Unavailable Allergies Not on File Current Medications Not on file Active Problems Not on file Social History Tobacco Use Types Packs/Day Years Used Date Never Assessed Sex Assigned at Date Recorded Not on file Last Filed Vital Signs Not on file Plan of Treatment Not on file Results Not on filefrom Last 3 Months
--- OUTSIDE RECORDS SUMMARY | 2018-06-21 09:27 | XMS REPORT ---
Author Author ANNABEL PERSAUD Organization [facility] Address [address] [place] [address] Care Team Providers Care Rope Laying Machine Operator Name Role Phone ANNABEL PERSAUD Unavailable PROBLEMS Type Condition ICD9-CM Code QSZ98-TI Code Onset Dates Condition Status SNOMED Code Problem Chronic obstructive pulmonary disease, unspecified COPD type J44.9 Active 40611118 Problem Asthma J45.909 Active 292289446 Problem Tobacco abuse Z72.0 Active 96418400 Problem Panlobular emphysema J43.1 Active 9288375 Problem Lumbago with sciatica, left side M54.42 Active 545044897 Problem Mental health disorder F99 Active 95455136 Problem Lumbago M54.5 Active 870222751 Problem Obstructive sleep apnea syndrome G47.33 Active 89248953 Problem Other chronic pain G89.29 Active 18960683 ALLERGIES Substance Reaction Event Type Date Status Haldol muscle tightness Drug Allergy August, Active ENCOUNTERS Encounter Location Date Diagnosis [place] [id number] [place] [address] 65493- 8679 Sep, Panlobular emphysema J43.1 [place] [id number] [place] [address] 55612- 0046 Sep, Lipoma of back D17.1 [place] [id number] [place] [address] 34289- 6439 Sep, [place] [id number] [place] [address] 85508- 5976 August, Panlobular emphysema J43.1 ; Lipoma of back D17.1 ; Tobacco abuse Z72.0 and Tobacco abuse counseling Z71.6 [place] [id number] [place] [address] 43274- 2091 Jul, [place] [id number] [place] [address] 49933- 2299 Jun, Asthma J45.909 [place] [id number] [place] [address] 44577- 7440 Apr, Foreign body in right foot, initial encounter S90.851A [place] [address] 06105- 7176 08 Dec, 2016 Lumbago with sciatica, left side M54.42 ; Other chronic pain G89.29 ; Chronic obstructive pulmonary disease, unspecified COPD type J44.9 and Obstructive sleep apnea syndrome G47.33 [place] [id number] [place] [address] 44392- 4949 Dec, Lumbago with sciatica, left side M54.42 ; Other chronic pain G89.29 ; Chronic obstructive pulmonary disease, unspecified COPD type J44.9 and Obstructive sleep apnea syndrome G47.33 [place] [id number] [place] [address] 22195- 1845 Nov, [place] [id number] [place] [address] 33945- 4999 Nov, [facility] [id number] [place] [address] 42581- 3092 Nov, Cough R05 and Chronic obstructive pulmonary disease, unspecified COPD type J44.9 [place] [id number] [place] [address] 90167- 7791 Oct, [facility] [id number] [place] [address] 47728 -2856 Oct, Cough R05 [place] [id number] [place] [address] 77940- 6245 Mar, [place] [id number] [place] [address] 71510- 1293 Mar, Chronic obstructive pulmonary disease, unspecified COPD type J44.9 ; Lumbago M54.5 ; Asthma J45.909 ; Tobacco abuse Z72.0 and Mental health disorder F99 [facility] [address] [address] 2633 14 Jul, 2014 [facility] [id number] [address] 9304 Jul, [facility] [address], [place] [address] 4087 Apr, [facility] [address] [facility] [id number], [place] [address]- 1684 Apr, [facility] [id number] [place] [address] 26921- 6176 Apr, [facility] [id number] [address]- 3058 Apr, [facility] [address] [place] [address] 83736- 0315 Apr, [facility] [address], [place] [address]- 4206 Apr, [facility] [address], [place] [address]- 6272 Apr, [facility] [address], [place] [address]- 1208 Apr, [facility] [address], [place] [address]- 7992 Mar, [facility] [id number], [place] [address]- 9349 Mar, [facility] [address] [address] 2653 Feb, [facility] [address], [place] [address]- 4023 Feb, [facility] [address], [place] [address]- 5659 Feb, [facility] [address] [id number] [place] [address]- 1386 Feb, [facility] [place] [facility] [address] [id number] [place] [address]- 2606 Sep, [facility] [place] [facility] [address] [id number] [place] [address]- 8996 Jul, [facility] [place] [facility] [address] [id number] [place] [address]- 6256 Jun, [facility] [address] [id number] [place] [address]- 6866 18 May, 2012 [facility] [place] [facility] [address] [id number] [place] [address]- 4796 15 May, 2012 [facility] [address] [id number] [place] [address]- 9936 08 May, 2012 [facility] [address] [id number] [place] [address]- 0106 May, [facility] [address] [id number] [place] [address]- 7546 Apr, [facility] [place] [facility] [address] [facility] [id number] [place] [address]- 8116 29 Mar, 2012 [facility] [place] [facility] [address] [id number] [place] [address]- 0916 14 Mar, 2012 [facility] [place] [facility] [address] [id number], [place] [address]- 4176 14 Mar, 2012 [facility] [place] [facility] [address] [id number] [place] [address]- 9166 14 Mar, 2012 [facility] [place] [facility] [address] [id number] [place] [address]- 8156 14 Mar, 2012 [facility] [place] [facility] [address] [id number] [place] [address]- 7136 30 Feb, 2012 [facility] [place] [facility] [address] [id number] [place] [address]- 6619 Feb, [facility] [place] [facility] [address] [id number] [place] [address]- 5180 Feb, [facility] [place] [facility] [address] [id number] [place] [address]- 1776 Feb, [facility] [place] [facility] [address] [id number] [place] [address]- 4214 Feb, [facility] [place] [facility] [address] [id number] [place] [address]- 1280 Feb, [facility] [place] [facility] [address] [id number] [place] [address]- 6069 Feb, [facility] [place] [facility] [address] [id number] [place] [address]- 5500 Jan, [facility] [place] [facility] [address] [id number] [place] [address]- 8913 Jan, [facility] [place] [facility] [address] [id number] [place] [address]- 6652 Jan, [facility] [place] [facility] [address] [id number] [place] [address]- 5015 Jan, [facility] [place] [facility] [address] [facility] [id number] [place] [address]- 4469 Oct, [facility] [place] [facility] [address] [facility] [id number] [place] [address]- 7875 Jun, [facility] [place] [facility] [address] [id number] [place] [address]- 0236 May, [facility] [place] [facility] [address] [id number] [place] [address]- 1067 May, [facility] [place] [facility] [address] [facility] [id number] [place] 6667 May, [facility] [place] [facility] [address] [facility] [id number] [place] [address]- 2850 Apr, [facility] [id number], [place] [address]- 8559 Apr, [facility] [address], [place] [address]- 6081 Apr, [facility] [address], [place] [address]- 2019 Apr, [facility] [address], [place] [address]- 3768 Apr, [facility] [address], [place] [address]- 6795 Feb, [facility] [address] [place] [address] 35801- 1888 Jan, [facility] [address], [place] [address]- 8846 Dec, [facility] [address], [place] [address]- 2968 Nov, IMMUNIZATIONS No Known Immunizations SOCIAL HISTORY Never Assessed REASON FOR VISIT COPD / ER F/U from [facility] for SOB and tumor was found in his [facility] PLAN OF CARE VITAL SIGNS Height 69.3 in 2017-09-09 Weight 201.4 lbs 2017-09-09 Temperature 98.1 degrees Fahrenheit 2017-09-09 Heart Rate 76 bpm 2017-09-09 Respiratory Rate 18 2017-09-09 Oximetry 95 % 2017-09-09 BMI 29.48 kg/m2 2017-09-09 Blood pressure systolic 124 mmHg 2017-09-09 Blood pressure diastolic 86 mmHg 2017-09-09 MEDICATIONS Medication Instructions Dosage Frequency Start Date End Date Duration Status Neurontin 800 MG 1 tablet 8h 10 Apr, 2013 Active Flovent HFA 110 MCG/ACT Inhalation Twice a day 1 puff 12h Jun, Feb, 30 days Active [place] 5-325 MG Orally every 6 hrs 1 tablet as needed 6h August, Active Chantix 1 MG Orally Twice a day 1 tablet 12h August, Feb, 30 day(s) Active Nebulizer Active Cyclobenzaprine HCl 10 mg Orally 2 times a day 1 tablet as needed 12h 07 Dec, 2016 Active ProAir HFA 108 (90 Base) MCG/ACT Inhalation every 6 hrs 2 puffs as needed 6h August, Active Albuterol Sulfate (2.5 MG/3ML) 0.083% Inhalation 4 times a day 3 ml as needed 6h August, Active RESULTS No Results PROCEDURES No Known [...]
--- OUTSIDE RECORDS SUMMARY | 2018-06-21 09:27 | XMS REPORT ---
Author Author ANNABEL PERSAUD Organization [facility] Address [address] [place] [address] Care Team Providers Care Professor Of Forest Planning Name Role Phone ANNABEL PERSAUD Unavailable PROBLEMS Type Condition ICD9-CM Code JIX94-OA Code Onset Dates Condition Status SNOMED Code Problem Chronic obstructive pulmonary disease, unspecified COPD type J44.9 Active 22981505 Problem Asthma J45.909 Active 573693596 Problem Tobacco abuse Z72.0 Active 23086923 Problem Panlobular emphysema J43.1 Active 3162059 Problem Lumbago with sciatica, left side M54.42 Active 646921745 Problem Mental health disorder F99 Active 57163394 Problem Lumbago M54.5 Active 730298668 Problem Obstructive sleep apnea syndrome G47.33 Active 01362805 Problem Other chronic pain G89.29 Active 93240439 ALLERGIES Substance Reaction Event Type Date Status Haldol muscle tightness Drug Allergy Apr, Active ENCOUNTERS Encounter Location Date Diagnosis [place] [id number] [place] [address] 62980- 1975 Sep, [facility] [address] [address] 5164 Sep, [facility] [id number] [place] [address] 51254- 1845 Sep, [facility] [address] [place] [address] 90165- 8981 August, Panlobular emphysema J43.1 ; Lipoma of back D17.1 ; Tobacco abuse Z72.0 and Tobacco abuse counseling Z71.6 [facility] [address] [address]- 2786 Jul, [facility] [id number] [place] [address] 32108- 8990 Jun, [address]45.909 [facility] [id number] [place] [address] 34133- 5352 Apr, Foreign body in right foot, initial encounter S90.851A [facility] [id number] [place] [address] 34588- 4877 Dec, Lumbago with sciatica, left side M54.42 ; Other chronic pain G89.29 ; Chronic obstructive pulmonary disease, unspecified COPD type J44.9 and Obstructive sleep apnea syndrome G47.33 [place] [id number] [place] [address] 81877- 7617 Dec, Lumbago with sciatica, left side M54.42 ; Other chronic pain G89.29 ; Chronic obstructive pulmonary disease, unspecified COPD type J44.9 and Obstructive sleep apnea syndrome G47.33 [place] [id number] [place] [address] 86964- 5803 Nov, [place] [id number] [place] [address] 15487- 7619 Nov, [place] [id number] [place] [address] 77211- 4126 Nov, Cough R05 and Chronic obstructive pulmonary disease, unspecified COPD type J44.9 [facility] [id number] [place] [address] 51249- 2500 Oct, [facility] [id number] [place] [address] 18415 -2501 Oct, Cough R05 [place] [id number] [place] [address] 40519- 9971 Mar, [place] [id number] [place] [address] 59508- 2750 Mar, Chronic obstructive pulmonary disease, unspecified COPD type J44.9 ; Lumbago M54.5 ; Asthma J45.909 ; Tobacco abuse Z72.0 and Mental health disorder F99 [facility] [address] [id number] [place] [address]- 4137 14 Jul, 2014 [facility] [address] [id number] [place] [address]- 4262 Jul, [facility] [address] [facility] [id number] [place] [address]- 2898 Apr, [facility] [address] [id number] [place] [address]- 6956 Apr, [facility] [address] [id number] [place] [address]- 3335 Apr, [facility] [address] [id number] [place] [address]- 8641 Apr, [facility] [address] [facility] [id number] [place] [address]- 3286 Apr, [facility] [address] [facility] [id number] [place] [address]- 7978 Apr, [facility] [address] [facility] [id number] [place] [address]- 1576 Apr, [facility] [address] [facility] [id number] [place] [address]- 8643 Apr, [facility] [address] [facility] [id number] [address]- 8162 Mar, [facility] [address] [facility] [id number] [place] [address]- 7623 Mar, [facility] [place] [facility] [address] [facility] [id number] [place] [address]- 4148 Feb, [facility] [address] [facility] [id number] [place] [address]- 1195 Feb, [facility] [address] [facility] [id number] [place] 4392 Feb, [facility] [address] [facility] [id number] [place] [address]- 3717 Feb, [facility] [address] [id number] [place] [address]- 0707 Sep, [facility] [place] [facility] [address] [id number] [place] [address]- 1785 29 Jul, 2012 [facility] [place] [facility] [address] [id number] [place] [address]- 4076 Jun, [facility] [place] [facility] [address] [id number] [place] [address]- 6282 18 May, 2012 [facility] [place] [facility] [address] [id number] [place] [address]- 8782 15 May, 2012 [facility] [place] [facility] [address] [id number] [place] [address]- 9022 08 May, 2012 [facility] [address] [id number] [place] [address]- 1923 07 May, 2012 [facility] [place] [facility] [address] [id number] [place] [address]- 9551 Apr, [facility] [place] [facility] [address] [id number] [place] [address]- 2154 29 Mar, 2012 [facility] [address] [id number] [place] [address]- 8013 14 Mar, 2012 [facility] [place] [facility] [address] [id number] [place] [address] 2546 14 Mar, 2012 [facility] [place] [facility] [address] [id number] [place] [address]- 2543 14 Mar, 2012 [facility] [place] [facility] [address] [id number] [place] [address]- 9514 14 Mar, 2012 [facility] [place] [facility] [address] [id number] [place] [address]- 3469 30 Feb, 2012 [facility] [place] [facility] [address] [id number] [place] [address]- 6345 Feb, [facility] [place] [facility] [address] [id number] [place] [address]- 5711 Feb, [facility] [place] [facility] [address] [id number] [place] [address]- 6541 Feb, [facility] [place] [facility] [address] [id number] [place] [address]- 8366 Feb, [facility] [place] [facility] [address] [id number] [place] [address]- 3680 Feb, [facility] [place] [facility] [address] [id number] [place] [address]- 7067 Feb, [facility] [place] [facility] [address] [id number] [place] [address]- 8956 Jan, [facility] [place] [facility] [address] [id number] [place] [address]- 3566 Jan, [facility] [place] [facility] [address] [id number] [place] [address]- 4982 Jan, [facility] [place] [facility] [address] [id number] [place] [address]- 1390 Jan, [facility] [place] [facility] [address] [id number] [address]- 7127 Oct, [facility] [place] [facility] [address] [facility] [id number] [place] [address]- 9775 Jun, [facility] [place] [facility] [address] [id number] [place] [address]- 7227 May, [facility] [place] [facility] [address] [id number] [place] [address]- 3722 May, [facility] [place] [facility] [address] [id number] [place] [address]- 7926 May, [facility] [place] [facility] [address] [facility] [id number] [place] [address]- 1314 Apr, [facility] [place] [facility] [address] [id number] [address]- 1057 Apr, [facility] [address] [address]- 6564 Apr, [facility] [address] [address]- 4016 Apr, [facility] [address] [address]- 7263 Apr, [facility] [id number] [place] [address] 55167- 1066 Feb, [facility] [address] [place] [address] 63155- 8950 Jan, [facility] [address] [place] [address] 41249- 3710 Dec, [facility] [address] [address]- 7889 Nov, IMMUNIZATIONS No Known Immunizations SOCIAL HISTORY Never Assessed REASON FOR VISIT right foot injury/referral to surgeon, reports metal in his foot[facility] PLAN OF CARE VITAL SIGNS Height 69.3 in 2017-04-21 Weight 210.2 lbs 2017-04-21 Temperature 98.6 degrees Fahrenheit 2017-04-21 Heart Rate 84 bpm 2017-04-21 Respiratory Rate 20 2017-04-21 BMI 30.77 kg/m2 2017-04-21 Blood pressure systolic 122 mmHg 2017-04-21 Blood pressure diastolic 84 mmHg 2017-04-21 MEDICATIONS Medication Instructions Dosage Frequency Start Date End Date Duration Status Proventil HFA 108 (90 Base) MCG/ACT Inhalation 4 times a day 2 puffs as needed 6h Nov, 0 days Active Neurontin 800 mg 1 Tablet 3 times per day Apr, Not- Taking [place] 5-325 MG Orally every 6 hrs 1 tablet as needed 6h Apr, Active Qvar 80 MCG/ACT Inhalation Twice a day 1 puff 12h Dec, Active Cyclobenzaprine HCl 10 mg Orally 2 times a day 1 tablet as needed 12h Dec, Active RESULTS No Results PROCEDURES No Known [...]
--- OUTSIDE RECORDS SUMMARY | 2018-06-21 09:27 | XMS REPORT ---
Author Author ANNABEL PERSAUD Organization [facility] Address [address] [place] [address] Care Team Providers Care Green Material Value Added Assessor Name Role Phone ANNABEL PERSAUD Unavailable PROBLEMS Type Condition ICD9-CM Code BHT49-BL Code Onset Dates Condition Status SNOMED Code Problem Chronic obstructive pulmonary disease, unspecified COPD type J44.9 Active 92644297 Problem Asthma J45.909 Active 038758355 Problem Tobacco abuse Z72.0 Active 31598345 Problem Panlobular emphysema J43.1 Active 6910060 Problem Lumbago with sciatica, left side M54.42 Active 006355752 Problem Mental health disorder F99 Active 42629081 Problem Lumbago M54.5 Active 801158011 Problem Obstructive sleep apnea syndrome G47.33 Active 66072230 Problem Other chronic pain G89.29 Active 61899849 ALLERGIES No Information ENCOUNTERS Encounter Location Date Diagnosis [place] [id number] [place] [address] 90332- 8054 Sep, Panlobular emphysema J43.1 [place] [id number] [place] [address] 79227- 0474 Sep, Lipoma of back D17.1 [place] [id number] [place] [address] 41416- 2087 Sep, [place] [id number] [place] [address] 93416- 0190 August, Panlobular emphysema J43.1 ; Lipoma of back D17.1 ; Tobacco abuse Z72.0 and Tobacco abuse counseling Z71.6 [place] [id number] [place] [address] 59396- 6789 Jul, [place] [address] [place] [address]- 0742 Jun, Asthma J45.909 [place] [id number] [place] [address] 78827- 9028 Apr, Foreign body in right foot, initial encounter S90.851A [place] [id number] [place] [address] 83572- 3941 Dec, Lumbago with sciatica, left side M54.42 ; Other chronic pain G89.29 ; Chronic obstructive pulmonary disease, unspecified COPD type J44.9 and Obstructive sleep apnea syndrome G47.33 [place] [id number] [place] [address] 01757- 0349 Dec, Lumbago with sciatica, left side M54.42 ; Other chronic pain G89.29 ; Chronic obstructive pulmonary disease, unspecified COPD type J44.9 and Obstructive sleep apnea syndrome G47.33 [place] [address] 81882- 2044 Nov, [place] [id number] [place] [address] 90216- 7793 Nov, [place] [id number] [place] [address] 24718- 7810 Nov, Cough R05 and Chronic obstructive pulmonary disease, unspecified COPD type J44.9 [facility] [id number] [place] [address] 03052- 9502 Oct, [facility] [id number] [place] [address] 84297 -4630 Oct, Cough R05 [place] [id number] [place] [address] 88681- 6005 Mar, [place] [id number] [place] [address] 87316- 1130 Mar, Chronic obstructive pulmonary disease, unspecified COPD type J44.9 ; Lumbago M54.5 ; Asthma J45.909 ; Tobacco abuse Z72.0 and Mental health disorder F99 [facility] [address] [id number] [place] [address] 9495 14 Jul, 2014 [facility] [address] [id number] [place] [address] 7521 Jul, [facility] [address] [facility] [id number] [place] [address]- 4890 Apr, [facility] [address] [id number] [place] [address]- 9005 Apr, [facility] [address] [id number] [place] [address]- 2284 Apr, [facility] [address] [facility] [id number] [place] [address]- 0816 Apr, [facility] [address] [facility] [id number] [place] [address]- 4138 Apr, [facility] [address] [facility] [id number], [place] [address]- 5419 Apr, [facility] [address] [facility] [id number] [place] [address]- 4978 Apr, [facility] [address] [facility] [id number], [place] [address]- 0579 Apr, [facility] [address] [facility] [id number], [place] [address]- 8621 Mar, [facility] [address] [id number], [place] [address]- 0160 Mar, [facility] [place] [facility] [address] [facility] [id number] [place] [address]- 7783 Feb, [facility] [address] [facility] [id number], [place] [address]- 4909 Feb, [facility] [place] [facility] [address] [facility] [id number] [place] [address]- 9379 Feb, [facility] [address] [id number] [place] [address]- 0619 Feb, [facility] [address] [id number] [place] [address]- 1619 Sep, [facility] [place] [facility] [address] [id number] [place] [address]- 1094 29 Jul, 2012 [facility] [address] [id number] [place] [address]- 4306 Jun, [facility] [place] [facility] [address] [id number] [place] [address]- 9195 18 May, 2012 [facility] [place] [facility] [address] [id number] [place] [address]- 4410 15 May, 2012 [facility] [place] [facility] [address] [id number] [place] [address]- 7366 08 May, 2012 [facility] [address] [facility] [id number] [place] [address]- 8875 07 May, 2012 [facility] [address] [id number] [place] [address]- 7841 Apr, [facility] [address] [id number] [place] [address]- 0686 29 Mar, 2012 [facility] [address] [id number] [place] [address]- 4177 14 Mar, 2012 [facility] [place] [facility] [address] [id number] [place] [address] 2546 14 Mar, 2012 [facility] [place] [facility] [address] [id number] [place] [address] 2543 14 Mar, 2012 [facility] [place] [facility] [address] [id number] [place] [address]- 3303 14 Mar, 2012 [facility] [place] [facility] [address] [id number] [place] [address]- 5745 30 Feb, 2012 [facility] [place] [facility] [address] [id number] [place] [address]- 3192 Feb, [facility] [place] [facility] [address] [id number] [place] [address]- 2181 Feb, [facility] [place] [facility] [address] [id number] [place] [address]- 4804 Feb, [facility] [place] [facility] [address] [id number] [place] [address]- 7371 Feb, [facility] [place] [facility] [address] [id number] [place] [address]- 7684 Feb, [facility] [place] [facility] [address] [id number] [place] [address]- 9887 Feb, [facility] [place] [facility] [address] [id number] [place] [address]- 3524 Jan, [facility] [place] [facility] [address] [id number] [place] [address]- 9080 Jan, [facility] [place] [facility] [address] [id number] [place] [address]- 5845 Jan, [facility] [place] [facility] [address] [id number] [place] [address]- 6430 Jan, [facility] [place] [facility] [address] [id number] [place] [address]- 5935 Oct, [facility] [place] [facility] [address] [facility] [id number] [place] [address]- 8787 Jun, [facility] [place] [facility] [address] [id number], [place] [address]- 1246 May, [facility] [place] [facility] [address] [id number] [place] [address]- 9626 May, [facility] [place] [facility] [address] [id number] [place] [address]- 8326 May, [facility] [place] [facility] [address] [id number] [place] [address]- 0210 Apr, [facility] [place] [facility] [address] [id number], [place] [address]- 2546 Apr, [facility] [address] [id number] [address]- 2546 Apr, [facility] [address] [id number] [address]- 2546 Apr, [facility] [address] [id number], [place] [address]- 2546 Apr, [facility] [address], [place] [address]- 2546 Feb, [facility] [address], [place] [address] 2546 Jan, [facility] [address], [place] [address]- 2546 Dec, [facility] [address] [id number], [place] [address]- 5586 Nov, IMMUNIZATIONS No Known Immunizations SOCIAL HISTORY Never Assessed REASON FOR VISIT Refill request PLAN OF CARE VITAL SIGNS MEDICATIONS Medication Instructions Dosage Frequency Start Date End Date Duration Status Flovent HFA 110 MCG/ACT Inhalation Twice a day 1 puff 12h Jun, Sep, 30 days Active Proventil HFA 108 (90 Base) MCG/ACT Inhalation 4 times a day 2 puffs as needed for cough, wheeze or SOB 6h Nov, 30 days Active RESULTS No Results PROCEDURES No Known [...]
--- OUTSIDE RECORDS SUMMARY | 2018-06-21 09:27 | XMS REPORT ---
Author Author ANNABEL PERSAUD Organization [facility] Address [address] [place] [address] Care Team Providers Care Heel Seat Laster Name Role Phone ANNABEL PERSAUD Unavailable PROBLEMS Type Condition ICD9-CM Code PGJ68-FG Code Onset Dates Condition Status SNOMED Code Problem Chronic obstructive pulmonary disease, unspecified COPD type J44.9 Active 82797480 Problem Asthma J45.909 Active 774425657 Problem Tobacco abuse Z72.0 Active 05312058 Problem Panlobular emphysema J43.1 Active 0610856 Problem Lumbago with sciatica, left side M54.42 Active 610793807 Problem Mental health disorder F99 Active 19312746 Problem Lumbago M54.5 Active 472983716 Problem Obstructive sleep apnea syndrome G47.33 Active 03581062 Problem Other chronic pain G89.29 Active 88939677 ALLERGIES No Information ENCOUNTERS Encounter Location Date Diagnosis [place] [id number] [place] [address] 77264- 1181 Sep, Panlobular emphysema J43.1 [place] [id number] [place] [address] 84767- 3143 Sep, Lipoma of back D17.1 [place] [id number] [place] [address] 44120- 7784 Sep, [place] [id number] [place] [address] 88652- 3684 August, Panlobular emphysema J43.1 ; Lipoma of back D17.1 ; Tobacco abuse Z72.0 and Tobacco abuse counseling Z71.6 [place] [id number] [place] [address] 40999- 3673 Jul, [place] [address] [place] [address]- 2781 Jun, Asthma J45.909 [place] [id number] [place] [address] 72498- 4373 Apr, Foreign body in right foot, initial encounter S90.851A [place] [id number] [place] [address] 40626- 2990 Dec, Lumbago with sciatica, left side M54.42 ; Other chronic pain G89.29 ; Chronic obstructive pulmonary disease, unspecified COPD type J44.9 and Obstructive sleep apnea syndrome G47.33 [place] [id number] [place] [address] 37187- 9467 Dec, Lumbago with sciatica, left side M54.42 ; Other chronic pain G89.29 ; Chronic obstructive pulmonary disease, unspecified COPD type J44.9 and Obstructive sleep apnea syndrome G47.33 [place] [address] 14250- 7786 Nov, [place] [id number] [place] [address] 08094- 3080 Nov, [place] [id number] [place] [address] 40081- 0015 Nov, Cough R05 and Chronic obstructive pulmonary disease, unspecified COPD type J44.9 [facility] [id number] [place] [address] 77782- 0076 Oct, [facility] [id number] [place] [address] 13628 -2759 Oct, Cough R05 [place] [id number] [place] [address] 99758- 4457 Mar, [place] [id number] [place] [address] 77228- 2102 Mar, Chronic obstructive pulmonary disease, unspecified COPD type J44.9 ; Lumbago M54.5 ; Asthma J45.909 ; Tobacco abuse Z72.0 and Mental health disorder F99 [facility] [address] [id number] [place] [address]- 8996 14 Jul, 2014 [facility] [address] [id number] [place] [address]- 8644 Jul, [facility] [address] [facility] [id number] [place] [address]- 3861 Apr, [facility] [address] [id number] [place] [address]- 8738 Apr, [facility] [address] [id number] [place] [address]- 6752 Apr, [facility] [address] [facility] [id number] [place] [address]- 9631 Apr, [facility] [address] [facility] [id number] [place] [address]- 9041 Apr, [facility] [address] [facility] [id number][place] [address]- 0468 Apr, [facility] [address] [facility] [id number] [place] [address]- 3538 Apr, [facility] [address] [facility] [id number][place] [address]- 5067 Apr, [facility] [address] [facility] [id number], [place] [address]- 7917 Mar, [facility] [address] [id number], [place] [address]- 7947 Mar, [facility] [place] [facility] [address] [facility] [id number] [place] [address]- 4438 Feb, [facility] [address] [facility] [id number][place] [address]- 8615 Feb, [facility] [place] [facility] [address] [facility] [id number] [place] [address]- 1558 Feb, [facility] [address] [id number] [place] [address]- 4177 Feb, [facility] [address] [id number] [place] [address]- 0531 Sep, [facility] [place] [facility] [address] [id number] [place] [address]- 1479 29 Jul, 2012 [facility] [place] [facility] [address] [id number] [place] [address]- 7506 Jun, [facility] [place] [facility] [address] [id number] [place] [address]- 1217 18 May, 2012 [facility] [place] [facility] [address] [id number] [place] [address]- 5915 15 May, 2012 [facility] [place] [facility] [address] [id number] [place] [address]- 6456 08 May, 2012 [facility] [place] [facility] [address] [facility] [id number] [place] [address]- 5014 07 May, 2012 [facility] [place] [facility] [address] [id number] [place] [address]- 6738 Apr, [facility] [place] [facility] [address] [id number] [place] [address]- 3213 29 Mar, 2012 [facility] [place] [facility] [address] [id number] [place] [address]- 5130 14 Mar, 2012 [facility] [place] [facility] [address] [id number] [place] [address] 2546 14 Mar, 2012 [facility] [place] [facility] [address] [id number] [place] [address] 2541 14 Mar, 2012 [facility] [place] [facility] [address] [id number] [place] [address]- 7796 14 Mar, 2012 [facility] [place] [facility] [address] [id number] [place] [address]- 1904 30 Feb, 2012 [facility] [place] [facility] [address] [id number] [place] [address]- 9992 Feb, [facility] [place] [facility] [address] [id number] [place] [address]- 1785 Feb, [facility] [place] [facility] [address] [id number] [place] [address]- 1597 Feb, [facility] [place] [facility] [address] [id number] [place] [address]- 4384 Feb, [facility] [place] [facility] [address] [id number] [place] [address]- 3645 Feb, [facility] [place] [facility] [address] [id number] [place] [address]- 6293 Feb, [facility] [place] [facility] [address] [id number] [place] [address]- 9608 Jan, [facility] [place] [facility] [address] [id number] [place] [address]- 1959 Jan, [facility] [place] [facility] [address] [id number] [place] [address]- 4623 Jan, [facility] [place] [facility] [address] [id number] [place] [address]- 6757 Jan, [facility] [place] [facility] [address] [id number] [place] [address]- 2236 Oct, [facility] [place] [facility] [address] [facility] [id number] [place] [address]- 1489 Jun, [facility] [place] [facility] [address] [id number], [place] [address]- 7557 May, [facility] [place] [facility] [address] [id number] [place] [address]- 7476 May, [facility] [place] [facility] [address] [id number] [place] [address]- 6778 May, [facility] [place] [facility] [address] [id number] [place] [address]- 4847 Apr, [facility] [place] [facility] [address] [id number], [place] [address]- 8280 Apr, [facility] [address] [id number] [address]- 1417 Apr, [facility] [address] [id number] [address]- 2624 Apr, [facility] [address], [place] [address]- 5889 Apr, [facility] [address], [place] [address]- 5957 Feb, [facility] [address], [place] [address]- 0032 Jan, [facility] [address] [id number], [place] [address]- 3698 Dec, [facility] [address] [id number] [address]- 5815 Nov, IMMUNIZATIONS No Known Immunizations SOCIAL HISTORY Never Assessed REASON FOR VISIT Requests return call PLAN OF CARE VITAL SIGNS MEDICATIONS Unknown Medications RESULTS No Results PROCEDURES No Known procedures [...]
--- OUTSIDE RECORDS SUMMARY | 2018-06-21 09:27 | XMS REPORT ---
Author Author ANNABEL PERSAUD Organization [facility] Address [address] [place] [address] Care Team Providers Care Career Placement Services Counselor Name Role Phone ANNABEL PERSAUD Unavailable PROBLEMS Type Condition ICD9-CM Code UVJ26-NC Code Onset Dates Condition Status SNOMED Code Problem Chronic obstructive pulmonary disease, unspecified COPD type J44.9 Active 00359347 Problem Asthma J45.909 Active 434332041 Problem Tobacco abuse Z72.0 Active 53667251 Problem Panlobular emphysema J43.1 Active 2360187 Problem Lumbago with sciatica, left side M54.42 Active 238243609 Problem Mental health disorder F99 Active 82971221 Problem Lumbago M54.5 Active 996818421 Problem Obstructive sleep apnea syndrome G47.33 Active 34605424 Problem Other chronic pain G89.29 Active 76489163 ALLERGIES No Information ENCOUNTERS Encounter Location Date Diagnosis [place] [id number] [place] [address] 39213- 3222 Sep, Panlobular emphysema J43.1 [place] [id number] [place] [address] 57033- 6295 Sep, Lipoma of back D17.1 [place] [id number] [place] [address] 52804- 7579 Sep, [place] [id number] [place] [address] 91792- 4502 August, Panlobular emphysema J43.1 ; Lipoma of back D17.1 ; Tobacco abuse Z72.0 and Tobacco abuse counseling Z71.6 [place] [id number] [place] [address] 66301- 8181 Jul, [place] [address] [place] [address]- 2537 Jun, Asthma J45.909 [place] [id number] [place] [address] 28225- 9854 Apr, Foreign body in right foot, initial encounter S90.851A [place] [id number] [place] [address] 28478- 2058 Dec, Lumbago with sciatica, left side M54.42 ; Other chronic pain G89.29 ; Chronic obstructive pulmonary disease, unspecified COPD type J44.9 and Obstructive sleep apnea syndrome G47.33 [place] [id number] [place] [address] 34844- 2605 Dec, Lumbago with sciatica, left side M54.42 ; Other chronic pain G89.29 ; Chronic obstructive pulmonary disease, unspecified COPD type J44.9 and Obstructive sleep apnea syndrome G47.33 [place] [address] [address]187- 8405 Nov, [place] [id number] [place] [address] 17473- 0195 Nov, [place] [id number] [place] [address] 43157- 0448 Nov, Cough R05 and Chronic obstructive pulmonary disease, unspecified COPD type J44.9 [facility] [id number] [place] [address] 92729- 9175 Oct, [facility] [id number] [place] [address] 36081 -6243 Oct, Cough R05 [place] [id number] [place] [address] 57414- 2610 Mar, [place] [id number] [place] [address] 55644- 6934 Mar, Chronic obstructive pulmonary disease, unspecified COPD type J44.9 ; Lumbago M54.5 ; Asthma J45.909 ; Tobacco abuse Z72.0 and Mental health disorder F99 [facility] [address] [id number] [place] [address] 6115 14 Jul, 2014 [facility] [address] [id number] [place] [address] 0494 Jul, [facility] [address] [facility] [id number] [place] [address]- 0743 Apr, [facility] [address] [id number] [place] [address]- 5782 Apr, [facility] [address] [id number] [place] [address]- 5596 Apr, [facility] [address] [facility] [id number] [place] [address]- 6510 Apr, [facility] [address] [facility] [id number] [place] [address]- 0596 Apr, [facility] [address] [facility] [id number], [place] [address]- 2132 Apr, [facility] [address] [facility] [id number] [place] [address]- 1045 Apr, [facility] [address] [facility] [id number], [place] [address]- 3589 Apr, [facility] [address] [facility] [id number], [place] [address]- 4936 Mar, [facility] [address] [id number], [place] [address] 7248 Mar, [facility] [place] [facility] [address] [facility] [id number] [place] [address]- 9541 Feb, [facility] [address] [facility] [id number], [place] [address]- 1150 Feb, [facility] [place] [facility] [address] [facility] [id number] [place] [address]- 4616 Feb, [facility] [address] [id number] [place] [address]- 6541 Feb, [facility] [address] [id number] [place] [address]- 7387 Sep, [facility] [place] [facility] [address] [id number] [place] [address]- 7891 29 Jul, 2012 [facility] [address] [id number] [place] [address]- 7136 Jun, [facility] [place] [facility] [address] [id number] [place] [address]- 6443 18 May, 2012 [facility] [place] [facility] [address] [id number] [place] [address]- 6572 15 May, 2012 [facility] [place] [facility] [address] [id number] [place] [address]- 3676 08 May, 2012 [facility] [address] [facility] [id number] [place] [address]- 7908 07 May, 2012 [facility] [address] [id number] [place] [address]- 8237 Apr, [facility] [address] [id number] [place] [address]- 5308 29 Mar, 2012 [facility] [address] [id number] [place] [address]- 7252 14 Mar, 2012 [facility] [place] [facility] [address] [id number] [place] [address] 2546 14 Mar, 2012 [facility] [place] [facility] [address] [id number] [place] [address] 2548 14 Mar, 2012 [facility] [place] [facility] [address] [id number] [place] [address]- 1970 14 Mar, 2012 [facility] [place] [facility] [address] [id number] [place] [address]- 4028 30 Feb, 2012 [facility] [place] [facility] [address] [id number] [place] [address]- 1976 Feb, [facility] [place] [facility] [address] [id number] [place] [address]- 6645 Feb, [facility] [place] [facility] [address] [id number] [place] [address]- 3321 Feb, [facility] [place] [facility] [address] [id number] [place] [address]- 8619 Feb, [facility] [place] [facility] [address] [id number] [place] [address]- 4880 Feb, [facility] [place] [facility] [address] [id number] [place] [address]- 2569 Feb, [facility] [place] [facility] [address] [id number] [place] [address]- 9427 Jan, [facility] [place] [facility] [address] [id number] [place] [address]- 4922 Jan, [facility] [place] [facility] [address] [id number] [place] [address]- 8894 Jan, [facility] [place] [facility] [address] [id number] [place] [address]- 5449 Jan, [facility] [place] [facility] [address] [id number] [place] [address]- 7680 Oct, [facility] [place] [facility] [address] [facility] [id number] [place] [address]- 1805 Jun, [facility] [place] [facility] [address] [id number], [place] [address]- 5317 May, [facility] [place] [facility] [address] [id number] [place] [address]- 7326 May, [facility] [place] [facility] [address] [id number] [place] [address]- 9972 May, [facility] [place] [facility] [address] [id number] [place] [address]- 8731 Apr, [facility] [place] [facility] [address] [id number], [place] [address]- 6428 Apr, [facility] [address] [id number] [address]- 4119 Apr, [facility] [address] [id number], [place] [address]- 7569 Apr, [facility] [address], [place] [address]- 3623 Apr, [facility] [address], [place] [address]- 2886 Feb, [facility] [address], [place] [address]- 7879 Jan, [facility] [address] [id number], [place] [address]- 9355 Dec, [facility] [address] [id number], [place] [address]- 8598 Nov, IMMUNIZATIONS No Known Immunizations SOCIAL HISTORY [...]
--- OUTSIDE RECORDS SUMMARY | 2018-06-21 09:28 | XMS REPORT ---
Author Author ANNABEL PERSAUD Organization [facility] Address [address] [place] [address] Care Team Providers Care Mover Name Role Phone ANNABEL PERSAUD Unavailable PROBLEMS Type Condition ICD9-CM Code VMA42-EE Code Onset Dates Condition Status SNOMED Code Problem Tobacco abuse Z72.0 Active 33984397 Problem Chronic obstructive pulmonary disease, unspecified COPD type J44.9 Active 35122248 Problem Other chronic pain G89.29 Active 68834362 Problem Lumbago with sciatica, left side M54.42 Active 941287205 Problem Lumbago M54.5 Active 841158049 Problem Asthma J45.909 Active 356788272 Problem Obstructive sleep apnea syndrome G47.33 Active 65925868 Problem Mental health disorder F99 Active 79921640 ALLERGIES No Information ENCOUNTERS Encounter Location Date Diagnosis [place] [id number] [place] [address] 56789- 4825 Jun, Asthma J45.909 [place] [id number] [place] [address] 92152- 5183 Apr, Foreign body in right foot, initial encounter S90.851A [place] [id number] [place] [address] 00573- 8272 Dec, Lumbago with sciatica, left side M54.42 ; Other chronic pain G89.29 ; Chronic obstructive pulmonary disease, unspecified COPD type J44.9 and Obstructive sleep apnea syndrome G47.33 [place] [id number] [place] [address] 81495- 3368 07 Dec, 2016 Lumbago with sciatica, left side M54.42 ; Other chronic pain G89.29 ; Chronic obstructive pulmonary disease, unspecified COPD type J44.9 and Obstructive sleep apnea syndrome G47.33 [place] [address], [place] [address]- 8632 Nov, [facility] [id number] [place] [address] 81885- 2287 Nov, [facility] [id number], [place] [address]- 1690 Nov, Cough R05 and Chronic obstructive pulmonary disease, unspecified COPD type J44.9 [facility] [id number] [place] [address] 24482- 0996 Oct, [facility] [id number] [place] [address] 65634 -0545 Oct, Cough R05 [facility] [id number] [place] [address] 98449- 9467 Mar, [facility] [id number] [place] [address] 57239- 5938 Mar, Chronic obstructive pulmonary disease, unspecified COPD type J44.9 ; Lumbago M54.5 ; Asthma J45.909 ; Tobacco abuse Z72.0 and Mental health disorder F99 [facility] [id number] [place] [address] 37069- 7078 Jul, [facility] [address], [place] [address]- 0189 Jul, [facility] [id number] [place] [address] 37747- 9438 Apr, [facility] [address], [place] [address]- 3707 Apr, [facility] [id number] [place] [address] 27941- 5019 Apr, [facility] [id number], [place] [address]- 6413 Apr, [facility] [id number] [place] [address] 31678- 1492 Apr, [facility] [address] [id number] [place] [address]- 3989 Apr, [facility] [place] [facility] [address] [id number] [place] [address]- 1785 Apr, [facility] [place] [facility] [address] [id number] [place] [address]- 1788 Apr, [facility] [place] [facility] [address] [id number] [place] [address]- 6967 Mar, [facility] [place] [facility] [address] [id number] [place] [address]- 1670 Mar, [facility] [place] [facility] [address] [id number] [place] [address]- 1981 Feb, [facility] [place] [facility] [address] [id number] [place] [address]- 0485 Feb, [facility] [place] [facility] [address] [id number] [place] [address]- 7341 Feb, [facility] [place] [facility] [address] [id number] [place] [address]- 3402 Feb, [facility] [place] [facility] [address] [id number] [place] [address]- 3745 Sep, [facility] [place] [facility] [address] [id number] [place] [address]- 5191 Jul, [facility] [place] [facility] [address] [id number], [place] [address]- 6988 Jun, [facility] [place] [facility] [address] [id number] [place] [address]- 4219 May, [facility] [place] [facility] [address] [id number] [place] [address]- 2216 May, [facility] [place] [facility] [address] [id number] [place] [address]- 5430 May, [facility] [place] [facility] [address] [id number] [place] [address]- 8270 07 May, 2012 [facility] [place] [facility] [address] [id number] [place] [address]- 2859 Apr, [facility] [place] [facility] [address] [id number] [place] [address]- 3011 29 Mar, 2012 [facility] [place] [facility] [address] [id number] [place] [address]- 2880 Mar, [facility] [place] [facility] [address] [id number] [place] [address]- 9053 Mar, [facility] [place] [facility] [address] [id number] [place] [address]- 8338 Mar, [facility] [place] [facility] [address] [id number] [place] [address]- 2281 Mar, [facility] [place] [facility] [address] [id number] [place] [address]- 2162 Feb, [facility] [place] [facility] [address] [id number] [place] [address]- 5149 30 Feb, 2012 [facility] [place] [facility] [address] [id number] [place] [address]- 2102 Feb, [facility] [place] [facility] [address] [facility] [id number] [place] [address]- 5564 Feb, [facility] [place] [facility] [address] [id number] [place] [address]- 2336 Feb, [facility] [place] [facility] [address] [id number] [place] [address]- 5150 Feb, [facility] [place] [facility] [address] [id number] [place] [address]- 3080 Feb, [facility] [place] [facility] [address] [id number] [place] [address]- 8692 Jan, [facility] [place] [facility] [address] [id number], [place] [address]- 7392 Jan, [facility] [place] [facility] [address] [id number] [place] [address]- 5503 Jan, [facility] [place] [facility] [address] [id number] [place] [address]- 6613 Jan, [facility] [place] [facility] [address] [id number] [place] [address]- 1034 Oct, [facility] [place] [facility] [address] [id number] [place] [address]- 5889 Jun, [facility] [place] [facility] [address] [id number] [place] [address]- 0877 May, [facility] [place] [facility] [address] [id number] [place] [address]- 4356 May, [facility] [place] [facility] [address] [id number] [place] [address]- 1561 May, [facility] [place] [facility] [address] [id number] [place] [address]- 8210 Apr, [facility] [place] [facility] [address] [id number] [place] [address]- 9036 Apr, [facility] [place] [facility] [address] [id number] [place] [address]- 4194 Apr, [facility] [place] [facility] [address] [id number] [place] [address]- 7217 Apr, [facility] [place] [facility] [address] [id number] [place] [address]- 8365 Apr, [facility] [place] [facility] [address] [id number] [place] [address]- 7705 Feb, [facility] [place] [facility] [address] [id number] [place] [address]- 7416 Jan, [facility] [place] [facility] [address] [id number] [place] [address]- 2546 Dec, [facility] [place] [facility] [address] [id number] [place] [address]- 0841 Nov, IMMUNIZATIONS No Known Immunizations SOCIAL HISTORY Never Assessed REASON FOR VISIT Lab (walk-in) PLAN OF CARE VITAL SIGNS MEDICATIONS Unknown Medications RESULTS Name Result Date Reference Range CBC 2016-12-25 WBC 15.0 3.4-10.8 RBC 5.21 4.14-5.80 Hemoglobin 16.0 12.6-17.7 Hematocrit 46.5 37.5-51.0 MCV 89 79-97 MCH 30.7 26.6-33.0 MCHC 34.4 31.5-35.7 RDW 13.5 12.3-15.4 Platelets 286 150-379 Neutrophils 68 Lymphs 23 Monocytes 5 Eos 3 Basos 0 Neutrophils (Absolute) 10.2 1.4-7.0 Lymphs (Absolute) 3.4 0.7-3.1 Monocytes(Absolute) 0.8 0.1-0.9 Eos (Absolute) 0.5 0.0-0.4 Baso (Absolute) 0.0 0.0-0.2 Immature Granulocytes 1 Immature Grans (Abs) 0.1 0.0-0.1 CMP 2016-12-25 Glucose, Serum 89 65-99 BUN 12 6-24 Creatinine, Serum 0.98 0.76-1.27 eGFR If NonAfricn Am 91 >59 eGFR If Africn Am 106 >59 BUN/Creatinine Ratio 12 9-20 Sodium, Serum 138 134-144 Potassium, Serum 5.0 3.5-5.2 Chloride, Serum 98 96-106 Carbon Dioxide, Total 26 18-29 Calcium, Serum 9.1 8.7-10.2 Protein, Total, Serum 7.0 6.0-8.5 Albumin, Serum 4.3 3.5-5.5 Globulin, Total 2.7 1.5-4.5 A/G Ratio 1.6 1.2-2.2 Bilirubin, Total 0.5 0.0-1.2 Alkaline Phosphatase, S 50 39-117 AST (SGOT) 16 0-40 ALT (SGPT) 16 0-44 LIPID PANEL 2016-12-25 Cholesterol, Total 197 100-199 Triglycerides 114 0-149 HDL Cholesterol 51 >39 VLDL Cholesterol Kushal 23 5-40 LDL Cholesterol Calc 123 0-99 Comment: PROCEDURES Procedure Date Ordered Result Body Site COMPLETE CBC W/AUTO DIFF WBC Dec 25, 2016 LIPID PANEL Dec 25, 2016 VENIPUNCT, ROUTINE* Dec 25, 2016 COMPREHEN METABOLIC PANEL Dec 25, 2016 INSTRUCTIONS MEDICATIONS ADMINISTERED No Known Medications MEDICAL [...]
--- OUTSIDE RECORDS SUMMARY | 2018-06-21 09:28 | XMS REPORT ---
Author Author ANNABEL PERSAUD Organization [facility] Address [address] [place] [address] Care Team Providers Care Franchise Development Manager Name Role Phone ANNABEL PERSAUD Unavailable PROBLEMS Type Condition ICD9-CM Code PID10-KT Code Onset Dates Condition Status SNOMED Code Problem Tobacco abuse Z72.0 Active 17721808 Problem Chronic obstructive pulmonary disease, unspecified COPD type J44.9 Active 84157250 Problem Other chronic pain G89.29 Active 41837810 Problem Lumbago with sciatica, left side M54.42 Active 389978734 Problem Lumbago M54.5 Active 919266745 Problem Asthma J45.909 Active 515685007 Problem Obstructive sleep apnea syndrome G47.33 Active 60188880 Problem Mental health disorder F99 Active 81455597 ALLERGIES Substance Reaction Event Type Date Status Haldol muscle tightness Drug Allergy Dec, Active ENCOUNTERS Encounter Location Date Diagnosis [place] [id number] [place] [address] 78772- 0409 August, [place] [id number] [place] [address] 64220- 5661 Jul, [place] [address] [place] [id number] [place] [address] 55967- 8296 Jun, Asthma J45.909 [place] [address] [place] [address] 41404- 6829 Apr, Foreign body in right foot, initial encounter S90.851A [place] [address] [place] [address] [id number] [place] [address] 25159- 3886 08 Dec, 2016 Lumbago with sciatica, left side M54.42 ; Other chronic pain G89.29 ; Chronic obstructive pulmonary disease, unspecified COPD type J44.9 and Obstructive sleep apnea syndrome G47.33 [place] [address] [address] 07 Dec, 2016 Lumbago with sciatica, left side M54.42 ; Other chronic pain G89.29 ; Chronic obstructive pulmonary disease, unspecified COPD type J44.9 and Obstructive sleep apnea syndrome G47.33 [facility] [id number] [address] 9005 Nov, [facility] [id number] [place] [address] 24334- 5667 Nov, [facility] [id number] [place] [address] 02645- 6420 Nov, Cough R05 and Chronic obstructive pulmonary disease, unspecified COPD type J44.9 [facility] [id number] [place] [address] 21395- 0870 Oct, [facility] [id number] [place] [address] 32529 -4690 Oct, Cough R05 [facility] [id number] [place] [address] 57680- 2180 Mar, [facility] [address] [place] [id number] [place] [address] 45279- 5628 Mar, Chronic obstructive pulmonary disease, unspecified COPD type J44.9 ; Lumbago M54.5 ; Asthma J45.909 ; Tobacco abuse Z72.0 and Mental health disorder F99 [facility] [address] [place] [address] 55200- 4732 Jul, [facility] [address] [place] [id number] [place] [address] 78239- 8429 Jul, [facility] [address] [place] [address] [id number] [place] [address] 53719- 4369 Apr, [facility] [id number] [place] [address] 36338- 8707 Apr, [facility] [id number] [place] [address]- 7130 Apr, [facility] [address] [id number] [place] [address]- 3322 Apr, [facility] [place] [facility] [address] [id number] [place] [address] 1936 Apr, [facility] [address] [id number] [place] [address]- 6905 Apr, [facility] [place] [facility] [address] [id number] [place] [address]- 8139 Apr, [facility] [address] [id number] [place] [address]- 6046 Apr, [facility] [place] [facility] [address] [id number] [place] [address]- 0959 Mar, [facility] [place] [facility] [address] [id number] [place] [address]- 9750 Mar, [facility] [place] [facility] [address] [id number] [place] [address]- 6098 Feb, [facility] [place] [facility] [address] [id number] [place] [address]- 7663 Feb, [facility] [place] [facility] [address] [facility] [id number] [place] [address]- 5025 Feb, [facility] [place] [facility] [address] [id number] [place] [address]- 0160 Feb, [facility] [place] [facility] [address] [id number] [place] [address]- 4239 Sep, [facility] [place] [facility] [address] [id number] [place] [address]- 9986 Jul, [facility] [place] [facility] [address] [id number] [place] [address]- 2186 Jun, [facility] [place] [facility] [address] [id number] [place] [address]- 3895 May, [facility] [place] [facility] [address] [id number] [place] [address]- 5147 15 May, 2012 [facility] [place] [facility] [address] [id number] [place] [address]- 4819 08 May, 2012 [facility] [place] [facility] [address] [id number] [place] [address]- 2272 07 May, 2012 [facility] [place] [facility] [address] [id number] [place] [address]- 7277 Apr, [facility] [place] [facility] [address] [id number] [place] [address]- 3084 29 Mar, 2012 [facility] [place] [facility] [address] [id number] [place] [address]- 2069 14 Mar, 2012 [facility] [place] [facility] [address] [id number] [place] [address]- 7350 14 Mar, 2012 [facility] [place] [facility] [address] [id number] [place] [address]- 8871 14 Mar, 2012 [facility] [place] [facility] [address] [id number] [place] [address]- 3885 Mar, [facility] [place] [facility] [address] [id number] [place] [address]- 1550 30 Feb, 2012 [facility] [place] [facility] [address] [id number] [place] [address]- 1451 30 Feb, 2012 [facility] [place] [facility] [address] [id number] [address]- 3063 Feb, [facility] [place] [facility] [address] [id number] [place] [address]- 0412 Feb, [facility] [place] [facility] [address] [id number] [place] [address]- 1639 Feb, [facility] [place] [facility] [address] [id number] [place] [address]- 0924 09 Feb, 2012 [facility] [place] [facility] [address] [id number] [address]- 5815 Feb, [facility] [place] [facility] [address] [id number] [place] [address]- 7737 Jan, [facility] [place] [facility] [address] [id number] [place] [address]- 9037 Jan, [facility] [place] [facility] [address] [id number] [place] [address]- 3714 Jan, [facility] [place] [facility] [address] [id number] [place] [address]- 0149 Jan, [facility] [place] [facility] [address] [id number] [place] [address]- 9082 Oct, [facility] [place] [facility] [address] [id number] [place] [address]- 3757 Jun, [facility] [place] [facility] [address] [place] [address]- 4368 May, [facility] [place] [facility] [address] [id number] [place] [address]- 9863 May, [facility] [place] [facility] [address] [id number] [address]- 8236 May, [facility] [place] [facility] [address] [place] [id number] [place] [address]- 8036 Apr, [facility] [place] [facility] [address] [place] [address]- 8455 Apr, [facility] [place] [facility] [address] [id number] [address] 2542 Apr, [facility] [place] [facility] [address] [id number] [place] [address]- 3460 Apr, [facility] [place] [facility] [address] [facility] [id number] [address]- 3356 Apr, [facility] [place] [facility] [address] [id number] [address]- 4366 Feb, [facility] [address] [facility] [id number] [place] [address]- 1755 Jan, [facility] [address] [facility] [id number] [address]- 2806 Dec, [facility] [address] [facility] [id number] [address]- 3836 Nov, IMMUNIZATIONS No Known Immunizations SOCIAL HISTORY Never Assessed REASON FOR VISIT check breathing issues, back issues, gas issues, shortness of breath, slight cough--Carlos Manuel Persaud MA PLAN OF CARE VITAL SIGNS Height 69.3 in 2016-12-24 Weight 198.4 lbs 2016-12-24 Temperature 98.1 degrees Fahrenheit 2016-12-24 Heart Rate 76 bpm 2016-12-24 Respiratory Rate 20 2016-12-24 BMI 29.04 kg/m2 2016-12-24 Blood pressure systolic 110 mmHg 2016-12-24 Blood pressure diastolic 82 mmHg 2016-12-24 MEDICATIONS Medication Instructions Dosage Frequency Start Date End Date Duration Status Qvar 80 MCG/ACT Inhalation Twice a day 1 puff 12h Dec, Active Proventil HFA 108 (90 Base) MCG/ACT Inhalation 4 times a day 2 puffs as needed 6h Nov, 0 days Active Grawn 5-325 MG Orally every 6 hrs 1 tablet as needed 6h Dec, Active Cyclobenzaprine HCl 10 mg Orally [...]
--- OUTSIDE RECORDS SUMMARY | 2018-06-21 09:28 | XMS REPORT ---
Author Author ARCHANA ZAMBRANO Organization [facility] [place] Address [address] [place] [address] Care Team Providers Care Manager Pricing Name Role Phone ARCHANA ZAMBRANO Unavailable PROBLEMS Type Condition ICD9-CM Code BNG17-NQ Code Onset Dates Condition Status SNOMED Code Problem Tobacco abuse Z72.0 Active 94077863 Problem Chronic obstructive pulmonary disease, unspecified COPD type J44.9 Active 52850783 Problem Other chronic pain G89.29 Active 34073534 Problem Lumbago with sciatica, left side M54.42 Active 519447796 Problem Lumbago M54.5 Active 331792779 Problem Asthma J45.909 Active 009834084 Problem Obstructive sleep apnea syndrome G47.33 Active 19298906 Problem Mental health disorder F99 Active 11508979 ALLERGIES Substance Reaction Event Type Date Status Haldol muscle tightness Drug Allergy Nov, Active ENCOUNTERS Encounter Location Date Diagnosis [place] [address] [place] [id number] [place] [address] 21972- 4687 August, [facility] [place] [address] [place] [id number] [place] [address] 67079- 3353 Jul, [place] [address] [place] [id number] [place] [address] 68538- 1355 Jun, Asthma J45.909 [facility] [place] [address] [place] [address] [id number] [place] [address] 40124- 8551 Apr, Foreign body in right foot, initial encounter S90.851A [place] [address] [place] [id number] [place] [address] 74836- 3053 Dec, Lumbago with sciatica, left side M54.42 ; Other chronic pain G89.29 ; Chronic obstructive pulmonary disease, unspecified COPD type J44.9 and Obstructive sleep apnea syndrome G47.33 [facility] [place] [id number] [address]- 1681 07 Dec, 2016 Lumbago with sciatica, left side M54.42 ; Other chronic pain G89.29 ; Chronic obstructive pulmonary disease, unspecified COPD type J44.9 and Obstructive sleep apnea syndrome G47.33 [facility] [place] [address] [place] [id number] [place] [address] 61985- 7484 Nov, [facility] [place] [address] [place] [address] [id number] [place] [address] 39036- 7743 Nov, [facility] [place] [address] [place] [id number] [place] [address] 14384- 9033 Nov, Cough R05 and Chronic obstructive pulmonary disease, unspecified COPD type J44.9 [facility] [place] [address] [place] [id number] [place] [address] 24638- 3216 Oct, [facility] [address] [place] [address] [id number] [place] [address] 47841 -8757 Oct, Cough R05 [facility] [place] [address] [place] [address] [id number] [place] [address] 75911- 8104 Mar, [place] [address] [place] [id number] [place] [address] 14604- 2228 Mar, Chronic obstructive pulmonary disease, unspecified COPD type J44.9 ; Lumbago M54.5 ; Asthma J45.909 ; Tobacco abuse Z72.0 and Mental health disorder F99 [facility] [place] [address] [place] [id number] [address]- 7011 Jul, [facility] [place] [address] [place] [id number] [place] [address] 19070- 8732 Jul, [facility] [place] [address] [place] [id number] [place] [address] 88166- 0213 Apr, [facility] [place] [address] [id number] [place] [address] 45280- 0434 Apr, [facility] [place] [address] [place] [address]- 9646 Apr, [facility] [address] [id number] [place] [address]- 7444 Apr, [facility] [address] [id number] [place] [address]- 3961 Apr, [facility] [address] [id number] [place] [address]- 1618 Apr, [facility] [address] [id number] [place] [address]- 4229 Apr, [facility] [address] [id number] [place] [address]- 1478 Apr, [facility] [address] [id number] [place] [address]- 1849 Mar, [facility] [address] [id number] [place] [address]- 2982 Mar, [facility] [address] [id number] [place] [address]- 0255 Feb, [facility] [address] [id number] [place] [address]- 1426 Feb, [facility] [address] [id number] [place] [address]- 9577 Feb, [facility] [address] [id number] [place] [address]- 1299 Feb, [facility] [address] [id number] [place] [address]- 2303 Sep, [facility] [place] [facility] [address] [id number] [place] [address]- 9593 Jul, [facility] [place] [facility] [address] [id number] [place] [address]- 2546 Jun, [facility] [address] [id number] [place] 5839 May, [facility] [place] [facility] [address] [id number] [place] [address]- 0394 15 May, 2012 [facility] [place] [facility] [address] [id number] [place] [address]- 3577 08 May, 2012 [facility] [place] [facility] [address] [id number] [place] [address]- 8422 07 May, 2012 [facility] [place] [facility] [address] [id number] [place] [address]- 6075 03 Apr, 2012 [facility] [place] [facility] [address] [id number] [place] [address]- 4151 29 Mar, 2012 [facility] [place] [facility] [address] [id number] [place] [address]- 8754 14 Mar, 2012 [facility] [place] [facility] [address] [id number] [place] [address]- 9078 14 Mar, 2012 [facility] [place] [facility] [address] [id number] [place] [address]- 3673 14 Mar, 2012 [facility] [place] [facility] [address] [id number] [place] [address]- 5937 14 Mar, 2012 [facility] [place] [facility] [address] [id number] [place] [address]- 4446 30 Feb, 2012 [facility] [place] [facility] [address] [id number] [place] [address]- 8640 30 Feb, 2012 [facility] [place] [facility] [address] [id number] [place] [address]- 6616 Feb, [facility] [place] [facility] [address] [id number] [place] [address]- 2478 Feb, [facility] [place] [facility] [address] [id number] [place] [address]- 2974 10 Feb, 2012 [facility] [place] [facility] [address] [id number] [place] [address]- 3761 09 Feb, 2012 [facility] [place] [facility] [address] [id number] [place] [address]- 2892 Feb, [facility] [place] [facility] [address] [id number] [place] [address]- 2221 Jan, [facility] [place] [facility] [address] [id number] [place] [address]- 2126 Jan, [facility] [place] [facility] [address] [id number] [place] [address]- 5759 Jan, [facility] [place] [facility] [address] [id number] [place] [address]- 8409 Jan, [facility] [place] [facility] [address] [id number] [place] [address]- 3585 Oct, [facility] [place] [facility] [address] [id number] [place] [address]- 7866 Jun, [facility] [place] [facility] [address] [id number] [place] [address]- 6695 May, [facility] [place] [facility] [address] [id number] [place] [address]- 6416 May, [facility] [place] [facility] [address] [place] [address]- 5670 May, [facility] [place] [facility] [address] [facility] [id number] [place] [address]- 0428 Apr, [facility] [place] [facility] [address] [id number] [place] [address]- 0745 Apr, [facility] [place] [facility] [address] [id number] [place] [address]- 6622 Apr, [facility] [place] [facility] [address] [id number] [place] [address]- 0955 Apr, [facility] [place] [facility] [address] [facility] [id number] [place] [address] 2546 Apr, [facility] [place] [facility] [address] [facility] [id number] [place] [address]- 4749 Feb, [facility] [place] [address] [facility] [id number] [place] [address]- 0580 Jan, [facility] [place] [address] [facility] [id number] [place] [address]- 9796 Dec, [facility] [place] [address] [facility] [id number] [place] [address]- 8216 Nov, IMMUNIZATIONS No Known Immunizations SOCIAL HISTORY Never Assessed REASON FOR VISIT cough/trouble breathing - Pt states "I can't breathe". When asked how long he has felt this way he says long time. He is upset that the [employer] here is telling him his inhaler alvarez has jumped way up and it used to be 4 dollars. He is not sleeping at night due to coughing, yellow mucous, white bubbly frothy spit, states that he stops breathing and fights for oxygen. - Erin GARNICA, Needs repository meds or samples as he states he does not have any money. PLAN OF CARE Activity Details Follow Up prn Reason: VITAL SIGNS Height 69.3 in 2016-12-14 Weight 199.0 lbs 2016-12-14 Temperature 98.3 degrees Fahrenheit 2016-12-14 Heart Rate 94 bpm 2016-12-14 Respiratory Rate 16 2016-12-14 Oximetry 96 % 2016-12-14 BMI 29.13 kg/m2 2016-12-14 Blood pressure systolic 102 mmHg 2016-12-14 Blood pressure diastolic 72 mmHg 2016-12-14 MEDICATIONS Medication Instructions Dosage Frequency Start Date End Date Duration Status Proventil HFA 108 (90 Base) MCG/ACT Inhalation 4 times a day 2 puffs as needed 6h Nov, 0 days Active PredniSONE 20 mg Orally Once a day 2 tablets 5 days, 1 daily 5 days 24h Nov, 7 Dec, 2016 10 days Active RESULTS No Results PROCEDURES Procedure Date Ordered Result Body Site MEASURE BLOOD OXYGEN LEVEL Dec 14, 2016 CHEST X-RAY Dec 14, 2016 INSTRUCTIONS MEDICATIONS ADMINISTERED No Known Medications [...]
--- OUTSIDE RECORDS SUMMARY | 2018-06-21 09:29 | XMS REPORT | Continuity of Care Document ---
Author Author [facility] Address Unknown Phone Unavailable Allergies Active Description Code Type Severity Reaction Onset Reported/Identified Relationship to Patient Clinical Status Yes haloperidol [id number] Drug Allergy Unknown N/A 06/18/2011 Yes Haloperidol Lactate [id number] Drug Allergy Unknown N/A 06/18/2011 Yes Haldol Drug Allergy 04/01/2012 Yes Haldol Drug Allergy N/A N/A 04/01/2012 Medications There is no data. Problems Date Dx Coded Attending Type Code [...] 72Do.4 LUMBAR RADICULOPATHY 05/13/2010 ARCHANA ZAMBRANO MD 72Do.8 Back Muscle Spasm 12/02/2010 ABREU DO CHECO K 305.1 Nicotine Dependence 12/02/2010 ABREU DO CHECO K 496 Chronic Obstructive Pulmonary Disease 12/02/2010 BRADY FRANCISCO CHECO K V65.42 Intervention And Counseling On [...] Counseling On Cessation Of Tobacco Use 12/02/2010 SHY ABREU DOA K 305.1 Nicotine Dependence 12/02/2010 ABREU DO [...] DO CHECO K 305.1 Nicotine Dependence 12/02/2010 BRADY FRANCISCO CHECO K 496 Chronic Obstructive Pulmonary Disease 12/02/2010 ABREU DO CHECO K V65.42 Intervention And Counseling On Cessation Of Tobacco Use 12/02/2010 ARCHANA ZAMBRANO MD 305.1 Nicotine Dependence 12/02/2010 ARCHANA ZAMBRANO MD 49Andrea Chronic Obstructive Pulmonary Disease 12/02/2010 ARCHANA ZAMBRANO MD V65.42 Intervention And Counseling On Cessation Of Tobacco Use 01/02/2011 SHY ABREU DOA K 780.57 Unspecified Sleep Apnea 01/02/2011 ABREU DO CHECO K 786.2 Cough 01/02/2011 SHY ABREU DOA K 789.02 Abdominal Pain Left Upper Quadrant [...] DO, CHECO K 493.90 ASTHMA UNSPECIFIED 05/18/2011 HSY ABREU DOA K 491.0 CHRONIC BRONCHITIS - SIMPLE 05/18/2011 SHY ABREU DOA K 493.90 ASTHMA UNSPECIFIED 05/18/2011 ABREU DO, CHECO K 491.0 CHRONIC BRONCHITIS - SIMPLE 05/18/2011 ABREU DO CHECO K 493.90 ASTHMA UNSPECIFIED 05/18/2011 SHY ABREU DOA K 491.0 CHRONIC BRONCHITIS - SIMPLE 05/18/2011 SHY ABREU DOA K 493.90 ASTHMA UNSPECIFIED 05/18/2011 ARCHANA ZAMBRANO MD 491.0 CHRONIC BRONCHITIS - SIMPLE 05/18/2011 ARCHANA ZAMBRANO MD 493.90 ASTHMA UNSPECIFIED 06/18/2011 Ot 553.1 UMBILICAL HERNIA 04/01/2012 SHY ABREU DOA K 553.1 UMBILICAL HERNIA WITHOUT OBSTRUCTION OR GANGRENE 04/01/2012 553.1 UMBILICAL HERNIA WITHOUT OBSTRUCTION OR GANGRENE 04/01/2012 CHECO ABREU DO K 553.1 UMBILICAL HERNIA WITHOUT OBSTRUCTION OR GANGRENE 04/01/2012 SHY ABREU DOA K 553.1 UMBILICAL HERNIA WITHOUT OBSTRUCTION OR GANGRENE 04/01/2012 SHY ABREU DOA K 553.1 UMBILICAL HERNIA WITHOUT OBSTRUCTION OR GANGRENE 04/01/2012 SHY ABREU DOA K 553.1 UMBILICAL HERNIA WITHOUT OBSTRUCTION OR GANGRENE 06/03/2012 719.41 PAIN IN JOINT INVOLVING SHOULDER REGION 06/03/2012 CHECO ABREU DO K 719.41 PAIN IN JOINT INVOLVING SHOULDER REGION 06/03/2012 CHECO ABREU DO K 719.41 PAIN IN JOINT INVOLVING SHOULDER REGION 06/03/2012 CHECO ABREU DO K 719.41 PAIN IN JOINT INVOLVING SHOULDER REGION 06/03/2012 SHY ABREU DOA K 719.41 PAIN IN JOINT INVOLVING SHOULDER REGION 04/28/2013 CHECO ABREU DO K 305.1 TOBACCO ABUSE 04/28/2013 CHECO ABREU DO 496 COPD 04/28/2013 CHECO ABREU DO 724.2 LUMBAGO 04/28/2013 CHECO ABREU DO V65.42 COUNSELING - SMOKING CESSATION 04/28/2013 CHECO ABREU DO 305.1 TOBACCO ABUSE 04/28/2013 CHECO ABREU DO 496 COPD 04/28/2013 CHECO ABREU DO 724.2 LUMBAGO 04/28/2013 CHECO ABREU DO K V65.42 COUNSELING - SMOKING CESSATION 03/19/2016 MINERVA SHANNON APRN Ot F17.210 NICOTINE DEPENDENCE, CIGARETTES, UNCOMPL 03/19/2016 MINERVA SHANNON APRN Ot J44.0 CHRONIC OBSTRUCTIVE PULMON DISEASE W ACU 03/19/2016 MINERVA SHANNON APRN Ot R07.81 PLEURODYNIA 03/19/2016 MINERVA SHANNON APRN Ot R07.89 OTHER CHEST PAIN 03/19/2016 Ot 789.02 ABDOMINAL PAIN, LEFT UPPER [...] MINERVA SHANNON APRN Ot R07.81 PLEURODYNIA 03/20/2016 MINERVA SHANNON APRN Ot R07.89 OTHER CHEST PAIN 10/29/2016 CLEO HUI Ot 305.1 TOBACCO USE DISORDER 10/29/2016 CLEO HUI Ot 496 CHR AIRWAY OBSTRUCT NEC 10/29/2016 CLEO HUI Ot 553.1 UMBILICAL HERNIA 10/30/2016 SYLVIA RMOERO, CLEO Hill Ot F17.210 NICOTINE DEPENDENCE, CIGARETTES, UNCOMPL 10/30/2016 CLEO WARD MD Ot J44.0 CHRONIC OBSTRUCTIVE PULMON DISEASE W ACU 10/30/2016 CLEO WARD MD Ot R06.02 SHORTNESS OF BREATH 10/30/2016 CLEO HUI M Ot 305.1 TOBACCO USE DISORDER 10/30/2016 CLEO HUI M Ot 496 CHR AIRWAY OBSTRUCT NEC 10/30/2016 CLEO HUI M Ot 553.1 UMBILICAL HERNIA 10/30/2016 CLEO HUI Ot 305.1 TOBACCO USE DISORDER 10/30/2016 CLEO HUI Ot 496 CHR AIRWAY OBSTRUCT NEC 10/30/2016 CLEO HUI Ot 553.1 UMBILICAL HERNIA 10/30/2016 CLEO WARD MD Ot F17.210 NICOTINE DEPENDENCE, CIGARETTES, UNCOMPL 10/30/2016 CLEO WARD MD Ot J44.0 CHRONIC OBSTRUCTIVE PULMON DISEASE W ACU 10/30/2016 CLEO WARD MD Ot R06.02 SHORTNESS OF BREATH 12/24/2016 CLEO HUI Ot 305.1 TOBACCO USE DISORDER 12/24/2016 CLEO HUI Ot 496 CHR AIRWAY OBSTRUCT NEC 12/24/2016 CLEO HUI Ot 553.1 UMBILICAL HERNIA 12/25/2016 CLEO WARD MD Ot F17.210 NICOTINE DEPENDENCE, CIGARETTES, UNCOMPL 12/25/2016 CLEO WARD MD Ot J44.0 CHRONIC OBSTRUCTIVE PULMON DISEASE W ACU 12/25/2016 CLEO WARD MD Ot R06.02 SHORTNESS OF BREATH 01/19/2017 CLEO HUI Ot 305.1 TOBACCO USE DISORDER 01/19/2017 CLEO HUI Ot 496 CHR AIRWAY OBSTRUCT NEC 01/19/2017 CLEO HUI Ot 553.1 UMBILICAL HERNIA 08/08/2017 ALEJANDRA MENDOZA MD Ot G47.30 SLEEP APNEA, UNSPECIFIED 08/08/2017 ALEJANDRA MENDOZA MD Ot J40 BRONCHITIS, NOT SPECIFIED ACUTE OR CH 08/08/2017 ALEJANDRA MENDOZA MD Ot J44.9 CHRONIC OBSTRUCTIVE PULMONARY DISEASE, U 08/08/2017 ALEJANDRA MENDOZA MD Ot R25.1 TREMOR, UNSPECIFIED 08/08/2017 ALEJANDRA MENDOZA MD Ot R25.9 UNSPECIFIED ABNORMAL INVOLUNTARY MOVEMEN 08/08/2017 ALEJANDRA MENDOZA MD Ot 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 08/08/2017 ALEJANDRA MENDOZA MD Ot Z87.19 PERSONAL HISTORY OF OTHER DISEASES OF 08/08/2017 ALEJANDRA MENDOZA MD Ot Z88.8 ALLERGY STATUS TO OTH DRUG/MEDS/BIOL SUB 08/08/2017 CLEO HUI Ot 305.1 TOBACCO USE DISORDER 08/08/2017 CLEO HUI Ot 496 CHR AIRWAY OBSTRUCT NEC 08/08/2017 CLEO HUI Ot 553.1 UMBILICAL HERNIA 08/10/2017 ALEJANDRA MENDOZA MD Ot G47.30 SLEEP APNEA, UNSPECIFIED 08/10/2017 ALEJANDRA MENDOZA MD Ot J40 BRONCHITIS, NOT SPECIFIED ACUTE OR CH 08/10/2017 ALEJANDRA MENDOZA MD Ot J44.9 CHRONIC OBSTRUCTIVE PULMONARY DISEASE, U 08/10/2017 ALEJANDRA MENDOZA MD Ot R25.1 TREMOR, UNSPECIFIED 08/10/2017 ALEJANDRA MENDOZA MD Ot R25.9 UNSPECIFIED ABNORMAL INVOLUNTARY MOVEMEN 08/10/2017 ALEJANDRA MENDOZA MD Ot 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.52 GROUP HOME (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 08/10/2017 ALEJANDRA MENDOZA MD Ot Z87.19 PERSONAL HISTORY OF OTHER DISEASES OF TH 08/10/2017 ALEJANDRA MENDOZA MD Ot Z88.8 ALLERGY STATUS TO OTH DRUG/MEDS/BIOL SUB 08/14/2017 ALEJANDRA MENDOZA MD Ot G47.30 SLEEP APNEA, UNSPECIFIED 08/14/2017 ALEJANDRA MENDOZA MD Ot J40 BRONCHITIS, NOT SPECIFIED ACUTE OR CH 08/14/2017 ALEJANDRA MENDOZA MD Ot J44.9 CHRONIC OBSTRUCTIVE PULMONARY DISEASE, U 08/14/2017 ALEJANDRA MENDOZA MD Ot R25.1 TREMOR, UNSPECIFIED 08/14/2017 ALEJANDRA MENDOZA MD Ot R25.9 UNSPECIFIED ABNORMAL INVOLUNTARY MOVEMEN 08/14/2017 ALEJANDRA MENDOZA MD Ot 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 08/14/2017 ALEJANDRA MENDOZA MD Ot Z87.19 PERSONAL HISTORY OF OTHER DISEASES OF 08/14/2017 ALEJANDRA MENDOZA MD Ot Z88.8 ALLERGY STATUS TO OTH DRUG/MEDS/BIOL SUB 11/11/2017 CLEO HUI Ot 305.1 TOBACCO USE DISORDER 11/11/2017 CLEO HUI Ot 496 CHR AIRWAY OBSTRUCT NEC 11/11/2017 CLEO HUI Ot 553.1 UMBILICAL HERNIA 12/08/2017 Ot 789.02 ABDOMINAL PAIN, LEFT UPPER QUADRANT 12/08/2017 Ot 722.10 LUMBAR DISC DISPLACEMENT 12/08/2017 CLEO HUI Ot 305.1 TOBACCO USE DISORDER 12/08/2017 CLEO HUI Ot 496 CHR AIRWAY OBSTRUCT NEC 12/08/2017 CLEO HUI Ot 553.1 UMBILICAL HERNIA Procedures Code Description Performed By Performed On JASWANT MANRIQUEZ 04/02/2012 89190 XRAY CHEST 2 VIEW 04/28/[address] CHEST W/O DYE 04/28/[address] ABDOMEN W/ AND W/O CONTRAST 04/28/2013 Results Test Result Range Complete blood count (CBC) with automated white blood cell (WBC) differential - 03/19/16 11:26 Blood leukocytes automated count (number/volume) 16.2 10*3/uL 4.3-11.0 Blood erythrocytes automated count (number/volume) 4.73 10*6/uL 4.35-5.85 Venous blood hemoglobin measurement (mass/volume) 14.9 [...] Automated blood platelet mean volume measurement 9.3 [foz_us] 7.4-10.4 Automated blood neutrophils/100 leukocytes 70 % [...] 03/19/16 11:26 Blood monocytes/100 leukocytes 4 % NR Manual blood segmented neutrophils/100 leukocytes 72 % NRG Blood band neutrophils/100 leukocytes 0 % NR Manual blood lymphocytes/100 leukocytes 21 % NRG Manual eosinophils/100 leukocytes in nose 3 % NR Manual blood basophils/100 leukocytes 0 % NR Blood erythrocyte morphology finding identification [facility] Comprehensive metabolic panel - 03/19/16 11:26 Serum or plasma sodium measurement (moles/volume) 142 mmol/L 135-145 Serum or plasma potassium measurement (moles/volume) 4.2 mmol/L 3.6-5.0 Serum or plasma chloride measurement (moles/volume) 109 mmol/L 98-107 Carbon dioxide 23 mmol/L 21-32 Serum or plasma anion gap determination (moles/volume) 10 mmol/L 5-14 Serum or plasma urea nitrogen measurement (mass/volume) 13 mg/dL 7-18 Serum or plasma creatinine measurement (mass/volume) 0.87 mg/dL 0.60-1.30 Serum or plasma urea nitrogen/creatinine mass [...] or plasma troponin i.cardiac measurement (mass/volume) < ng/ mL <0.30 Myoglobin, serum - 03/19/16 11:26 Myoglobin, serum 27.7 ng/mL 10.0-92.0 Lipase - 03/19/16 11:26 Lipase 26 U/L 8-78 CBC With Differential/Platelet - 12/25/16 11:26 WBC 15.0 x10E3/uL 3.4-10.8 RBC 5.21 x10E6/uL 4.14-5.80 Hemoglobin 16.0 g/dL 12.6-17.7 Hematocrit 46.5 % 37.5-51.0 MCV 89 fL 79-97 MCH 30.7 pg 26.6-33.0 MCHC 34.4 g/dL 31.5-35.7 RDW 13.5 % 12.3-15.4 Platelets 286 x10E3/uL 150-379 Neutrophils 68 % Lymphs 23 % Monocytes 5 % Eos 3 % Basos 0 % Neutrophils (Absolute) 10.2 x10E3/uL 1.4-7.0 Lymphs (Absolute) 3.4 x10E3/uL 0.7-3.1 Monocytes(Absolute) 0.8 x10E3/uL 0.1-0.9 Eos (Absolute) 0.5 x10E3/uL 0.0-0.4 Baso (Absolute) 0.0 x10E3/uL 0.0-0.2 Immature Granulocytes 1 % Immature Grans (Abs) 0.1 x10E3/uL 0.0-0.1 Comp. Metabolic Panel (14) - 12/25/16 11:26 Glucose, Serum 89 mg/dL 65-99 BUN 12 mg/dL 6-24 Creatinine, Serum 0.98 mg/dL 0.76-1.27 eGFR If NonAfricn Am 91 mL/min/1.73 >59 eGFR If Africn Am 106 mL/min/1.73 >59 BUN/Creatinine Ratio 12 9-20 Sodium, Serum 138 mmol/L 134-144 Potassium, Serum 5.0 mmol/L 3.5-5.2 Chloride, Serum 98 mmol/L 96-106 Carbon Dioxide, Total 26 mmol/L 18-29 Calcium, Serum 9.1 mg/dL 8.7-10.2 Protein, Total, Serum 7.0 g/dL 6.0-8.5 Albumin, Serum 4.3 g/dL 3.5-5.5 Globulin, Total 2.7 g/dL 1.5-4.5 A/G Ratio 1.6 1.2-2.2 Bilirubin, Total 0.5 mg/dL 0.0-1.2 Alkaline Phosphatase, S 50 IU/L 39-117 AST (SGOT) 16 IU/L 0-40 ALT (SGPT) 16 IU/L 0-44 Lipid Panel - 12/25/16 11:26 Cholesterol, Total 197 mg/dL 100-199 Triglycerides 114 mg/dL 0-149 HDL Cholesterol 51 mg/dL >39 VLDL Cholesterol Kushal 23 mg/dL 5-40 LDL Cholesterol Calc 123 mg/dL 0-99 LIPID PANEL - 12/25/16 11:26 Cholesterol, Total 197 mg/dL 100-199 Triglycerides 114 mg/dL 0-149 HDL Cholesterol 51 mg/dL >39 VLDL Cholesterol Kushal 23 mg/dL 5-40 LDL Cholesterol Calc 123 mg/dL 0-99 Comment: NRG Complete blood count (CBC) with automated white blood cell (WBC) differential - 08/08/17 14:32 Blood leukocytes automated count (number/volume) 10.6 10*3/uL 4.3-11.0 Blood erythrocytes automated count (number/volume) 4.89 10*6/uL 4.35-5.85 Venous blood hemoglobin measurement (mass/volume) 15.3 g/dL 13.3-17.7 Blood hematocrit (volume fraction) 44 % 40-54 Automated erythrocyte mean corpuscular volume 89 [foz_us] 80-99 Automated erythrocyte mean corpuscular hemoglobin (mass per erythrocyte) 31 pg 25-34 Automated erythrocyte mean corpuscular hemoglobin concentration measurement ( mass/volume) 35 g/dL 32-36 Automated erythrocyte distribution width ratio 13.1 % 10.0-14.5 Automated blood platelet count (count/volume) 285 10*3/uL 130-400 Automated blood platelet mean volume measurement 9.6 [foz_us] 7.4-10.4 Automated blood neutrophils/100 leukocytes 69 % 42-75 Automated blood lymphocytes/100 leukocytes 21 % 12-44 Blood monocytes/100 leukocytes 8 % 0-12 Automated blood eosinophils/100 leukocytes 2 % 0-10 Automated blood basophils/100 leukocytes 0 % 0-10 Blood neutrophils automated count (number/volume) 7.3 10*3 1.8-7.8 Blood lymphocytes automated count (number/volume) 2.3 10*3 1.0-4.0 Blood monocytes automated count (number/volume) 0.9 10*3 0.0-1.0 Automated eosinophil count 0.2 10*3/uL 0.0-0.3 Automated blood basophil count (count/volume) 0.0 10*3/uL 0.0-0.1 Comprehensive metabolic panel - 08/08/17 14:32 Serum or plasma sodium measurement (moles/volume) 138 mmol/L 135-145 Serum or plasma potassium measurement (moles/volume) 4.0 mmol/L 3.6-5.0 Serum or plasma chloride measurement (moles/volume) 105 mmol/L 98-107 Carbon dioxide 23 mmol/L 21-32 Serum or plasma anion gap determination (moles/volume) 10 mmol/L 5-14 Serum or plasma urea nitrogen measurement (mass/volume) 9 mg/dL 7-18 Serum or plasma creatinine measurement (mass/volume) 0.95 mg/dL 0.60-1.30 Serum or plasma urea nitrogen/creatinine mass ratio 9 NRG Serum or plasma creatinine measurement with calculation of estimated glomerular filtration rate > NRG Serum or plasma glucose measurement (mass/volume) 98 mg/dL 70-105 Serum or plasma calcium measurement (mass/volume) 9.5 mg/dL 8.5-10.1 Serum or plasma total bilirubin measurement (mass/volume) 0.5 mg/dL 0.1-1.0 Serum or plasma alkaline phosphatase measurement (enzymatic activity/volume) 48 U/L 40-136 Serum or plasma aspartate aminotransferase measurement (enzymatic activity/ volume) 19 U/L 5-34 Serum or plasma alanine aminotransferase measurement (enzymatic activity/volume ) 29 U/L 0-55 Serum or plasma protein measurement (mass/volume) 7.5 g/dL 6.4-8.2 Serum or plasma albumin measurement (mass/volume) 4.5 g/dL 3.2-4.5 Magnesium - 08/08/17 14:32 Magnesium 2.5 mg/dL 1.8-2.4 THYROID STIMULATING HORMONE - 08/08/17 14:32 THYROID STIMULATING HORMONE 0.77 u[iU]/mL 0.35-4.94 Encounters ACCT No. Visit Date/Time Discharge Status Pt. Type Provider Facility Loc./Unit Complaint [id number] 04/28/2013 11:34:00 04/28/2013 23:59:59 CLS Outpatient BRADY FRANCISCO CHECO Tamar [id number] 04/28/2013 11:34:00 04/28/2013 23:59:59 CLS Outpatient BRADY FRANCISCO CHECO Tamar [id number] 08/17/2012 00:00:00 08/17/2012 23:59:59 CLS Outpatient BRADY FRANCISCO CHECO Tamar [id number] 06/06/2012 16:31:00 06/06/2012 23:59:59 CLS Outpatient ABREU DO CHECO K [id number] 06/03/2012 08:57:00 06/03/2012 23:59:59 CLS Outpatient [id number] 04/01/2012 16:04:00 04/01/2012 23:59:59 CLS Outpatient ABREU CHECO FRANCISCO [id number] 02/26/2012 14:06:00 02/26/2012 23:59:59 CLS Outpatient ARCHANA ZAMBRANO MD [id number] 12/26/2016 08:35:00 Document Registration [id number] 10/12/2017 16:00:00 10/12/2017 23:59:59 CLS Outpatient ANNABEL PERSAUD APRN [facility] [id number] 12/25/2016 11:40:00 Document Registration [id number] 08/08/2017 13:56:00 08/08/2017 17:44:00 DIS Emergency KELLY ROMERO, ALEJANRDA Valenzuela [facility] ER SEIZURES [id number] 10/29/2016 22:36:00 10/30/2016 00:24:00 DIS Emergency SYLVIA ROMERO, CLEO Hill [facility] ER SOB,COUGH,ABD PAIN [id number] 03/19/2016 11:11:00 03/19/2016 12:48:00 DIS Emergency MINERVA SHANNON APRN [facility] ER CHEST PAIN/SOA [id number] 05/09/2013 09:47:00 05/09/2013 23:59:59 CLS Outpatient CIERA TINSLEY, CLEO Mora [facility] RAD F/U HERNIA,COPD,CHRONIC SMOKER,CHRONIC COUGH [id number] 06/21/2018 09:20:00 ACT Emergency AUDREY ROMERO, ROSIO Mora [facility] ER FS COUGH; LUNG PAIN [id number] 03/19/2016 12:53:00 Document Registration [id number] 06/18/2011 13:25:00 Document Registration [id number] 04/16/2011 07:22:00 Document Registration [id number] 01/05/2011 15:06:00 Document Registration
--- NOTE | 2018-06-21 09:46 | ED Dyspnea ---
General Chief Complaint: Cough, shortness of breath Stated Complaint: COUGH; LUNG PAIN Source of Information: Patient, Family Exam Limitations: No Limitations History of Present Illness Date Seen by Provider: Jun 21, 2018 Time Seen by Provider: 09:30 Timing/Duration: Episodic, Increasing Severity: Moderate Activities at Onset: Activity 47-year-old man history of COPD and a current smoker presents with productive yellow sputum cough, "lung pain" that occurs with coughing, increasing shortness of breath. He has a positive sick contact-his son. Symbicort and albuterol mildly improve the shortness of breath and coughing. Walking and exposure to the cold air worsen his shortness of breath and coughing. He denies fever or chills. Allergies and Home Medications Allergies Coded Allergies: Haloperidol Lactate (Verified Allergy, 06/18/11) haloperidol (Verified Allergy, 06/18/11) Home Medications Azithromycin 250 Mg Tablet, 250 MG PO DAILY Prescribed by: CLEO OLIVER on 10/30/1615 Benzonatate 200 Mg Capsule, 200 MG PO TID Prescribed by: CLEO OLIVER on 10/30/1615 Prednisone 20 Mg Tab, 20 MG PO DAILY Prescribed by: CLEO OLIVER on 10/30/1615 Prednisone 20 Mg Tab, 40 MG PO DAILY Prescribed by: ALEJANDRA MENDOZA on 08/08/17 1708 Patient Home Medication List Home Medication List Reviewed: Yes Review of Systems Review of Systems Constitutional: No chills, No fever; weakness EENTM: hoarseness; No ear pain Respiratory: see HPI Cardiovascular: No chest pain, No edema, No syncope Gastrointestinal: No abdominal pain, No nausea, No vomiting Musculoskeletal: No joint pain, No muscle pain Skin: No lesions, No rash Past Axibzig-Dvlxlg-Zpjeqk Hx Past Med/Social Hx: Reviewed Nursing Past Med/Soc Hx Patient Social History Type Used: Cigarettes Recent Foreign Travel: No Contact w/Someone Who Travel: No Recent Hopitalizations: No Past Medical History Surgeries: Yes (hernia ) Orthopedic Respiratory: Yes Sleep Apnea, COPD Cardiac: No Neurological: No Gastrointestinal: No Musculoskeletal: No Endocrine: No Cancer: No Psychosocial: No Physical Exam Vital Signs Vital Signs - First Documented 06/21/18 09:26 Temp 99.1 Pulse 100 Resp 22 B/P (MAP) 110/83 (92) Pulse Ox 94 O2 Delivery Room Air Capillary Refill : Height, Weight, BMI Height: 5'9.00" Weight: 200lbs. oz. 90.972482co; BMI Method:Stated General Appearance: No Apparent Distress, WD/WN HEENT: PERRL/EOMI, Pharynx Normal Neck: Full Range of Motion, Normal Inspection, Non Tender, Supple Respiratory: Chest Non Tender, Normal Breath Sounds, No Accessory Muscle Use ( Speaks in full sentences), No Respiratory Distress, Wheezing (Minimal faint diffuse expiratory wheezes) Cardiovascular: Regular Rate, Rhythm, No Edema, No Gallop, No JVD, No Murmur, Normal Peripheral Pulses Gastrointestinal: Normal Bowel Sounds, No Organomegaly, Non Tender, Soft Extremity: No Calf Tenderness, No Pedal Edema Neurologic/Psychiatric: Alert, Oriented x3 Skin: Normal Color, Warm/Dry Progress/Results/Core Measures Results/Orders My Orders Orders - ROSIO VENTURA MD Chest Pa/Lat (2 View) (06/21/18 09:46) Pulse Oximetry Order (06/21/18 09:46) Albuterol/Ipra Inhalation Soln (Duoneb I (06/21/18 10:00) Dexamethasone Injection (Decadron Inject (06/21/18 10:00) Svn Small Volume Nebulizer (06/21/18 09:46) Levaquin 750 Mg Iv (1x Dose) (06/21/18 11:00) Medications Given in ED Current Medications Medications Dose Ordered Sig/Everardo Route Start Time Stop Time Status Last Admin Dose Admin Albuterol/ Ipratropium 3 ml ONCE ONCE INH 06/21/18 10:00 06/21/18 10:01 DC 06/21/18 09:57 3 ML Dexamethasone Sodium Phosphate 8 mg ONCE ONCE PO 06/21/18 10:00 06/21/18 10:01 DC 06/21/18 09:57 8 MG Vital Signs/I&O 06/21/18 09:26 Temp 99.1 Pulse 100 Resp 22 B/P (MAP) 110/83 (92) Pulse Ox 94 O2 Delivery Room Air Progress Progress Note : Progress Note History of COPD with recent exposure to sick contact. Treatment with DuoNeb, dexamethasone, evaluate for pneumonia with a chest x-ray. Saturations 94% on room air, 91% after ambulating the hallway. Patient is feeling better. Chest x-ray with possible early right lower lobe infiltrate, given this and his history of COPD I will treat him with Levaquin, burst of steroids. Results of the workup and strict return precautions were discussed. Diagnostic Imaging Diagonstic Imaging: Xray Plain Films/CT/US/NM/MRI: chest Comments Right lower lobe infiltrate possible pneumonia Reviewed: Reviewed by Me Departure Impression Primary Impression: Pneumonia Disposition: HOME, SELF-CARE Condition: Improved Departure-Patient Inst. Decision time for Depature: 10:48 Referrals: ANNABEL PERSAUD (PCP/Family) Primary Care Physician Patient Instructions: Pneumonia, Adult (DC) ROSIO VENTURA MD Jun 21, 2018 09:46
[2018-06-21] MEDS ORDERED: DEXAMETHASONE 4 MG/ML SDV (DECADRON) PO ONE (10:00)
[2018-06-21] MEDS ORDERED: RT-ALBUTEROL/IPRATROPIUM 3 ML (DUONEB) VIAL INH ONE (10:00)
--- NOTE | 2018-06-21 10:39 | Diagnostic Imaging Report ---
Indication: Coughing, congestion. PA and lateral stent obtained at 1013 hrs. a.m. Heart and mediastinal silhouette are normal in appearance. The lungs are clear. There is no pneumothorax or pleural fluid. Impression: Negative chest. No change from 10/29/2016. Dictated by: Dictated on workstation # [id number]
[2018-06-21] MEDS ORDERED: GUAI118L10 PO (10:58)
[2018-06-21] MEDS ORDERED: PRD20T PO (10:58)
[2018-06-21] MEDS ORDERED: LEVO750T9 PO (10:59)
[2018-06-21] MEDS ORDERED: LEVOFLOXACIN 750 MG/150 ML IV 150 ML IV ONE (11:00)
[2018-06-21] MEDS ORDERED: LEVOFLOXACIN 500 MG TAB (LEVAQUIN) ONE (11:11)
[2018-06-21] MEDS ORDERED: LEVOFLOXACIN 750 MG TAB (LEVAQUIN) PO ONE (11:15)
[2018-06-21 11:30] VITALS: BP 124/74
== END 2018-06-21 11:30 | disposition home or self-care (01) ==
LOC: EDUNIT# 09:18 → ER FS 09:20
DX: J18.9 Pneumonia, unspecified organism (principal); G47.30 Sleep apnea, unspecified; J44.9 Chronic obstructive pulmonary disease, unspecified; F17.210 Nicotine dependence, cigarettes, uncomplicated; Z98.890 Other specified postprocedural states; Z88.8 Allergy status to other drugs, medicaments and biological substances; Z79.52 Long term (current) use of systemic steroids
CPT/HCPCS: 71046

== ENCOUNTER 2018-09-05 19:31 | Emergency (ER) | payer SELFPAY ==
[~2018-09-05] VITALS: Ht 175.3 cm; Wt 90.7 kg
[~2018-09-05 19:31] MED LIST changes: +GUAI118L10 PO; +LEVO750T9 PO
--- OUTSIDE RECORDS SUMMARY | 2018-09-05 19:37 | XMS REPORT | Clinical Summary ---
Author Author [facility] Organization [facility] Address Unknown Phone Unavailable Care Team Providers Care Sanipractic Physician Name Role Phone PCP Unavailable Allergies Not [...]
--- OUTSIDE RECORDS SUMMARY | 2018-09-05 19:37 | XMS REPORT ---
Author Author Migration, Doctor Organization [facility] Address Unknown Phone Unavailable Care Team Providers Care Inspector Of Dredging Name Role Phone Migration, Doctor Unavailable Unavailable PROBLEMS Type Condition ICD9-CM Code TES79-TT Code Onset Dates Condition Status SNOMED Code Problem Chronic obstructive pulmonary disease, unspecified COPD type J44.9 Active 32925282 Problem Tobacco abuse Z72.0 Active 08401298 Problem Asthma J45.909 Active 302394486 Problem Lumbago with sciatica, left side M54.42 Active 685918808 Problem Panlobular emphysema J43.1 Active 3232855 Problem Lumbago M54.5 Active 083995692 Problem Mental health disorder F99 Active 39502071 Problem Other chronic pain G89.29 Active 59130297 Problem Obstructive sleep apnea syndrome G47.33 Active 87428604 ALLERGIES No Information ENCOUNTERS Encounter Location Date Diagnosis [place] [address] [address] Sep, Panlobular emphysema J43.1 [place] [address] [place] [id number] [place] [address] Sep, Lipoma of back D17.1 [place] [address] [place] [id number] [place] [address] Sep, [place] [address] [address] August, Panlobular emphysema J43.1 ; Lipoma of back D17.1 ; Tobacco abuse Z72.0 and Tobacco abuse counseling Z71.6 [place] [address] [place] [id number] [place] [address] Jul, [place] [address] [place] [id number] [place] [address] Jun, Asthma J45.909 [place] [address] [place] [id number] [place] [address] Apr, Foreign body in right foot, initial encounter S90.851A [place] [address] [address] 08 Dec, 2016 Lumbago with sciatica, left side M54.42 ; Other chronic pain G89.29 ; Chronic obstructive pulmonary disease, unspecified COPD type J44.9 and Obstructive sleep apnea syndrome G47.33 [place] [address] [address] Dec, Lumbago with sciatica, left side M54.42 ; Other chronic pain G89.29 ; Chronic obstructive pulmonary disease, unspecified COPD type J44.9 and Obstructive sleep apnea syndrome G47.33 [place] [address] [address] Nov, [place] [address] [address] Nov, [place] [address] [address] Nov, Cough R05 and Chronic obstructive pulmonary disease, unspecified COPD type J44.9 [place] [address] [address] Oct, [facility] [address] [place] [id number] [place] [address] Oct, Cough R05 [place] [address] [place] [id number] [place] [address] Mar, [place] [address] [address] Mar, Chronic obstructive pulmonary disease, unspecified COPD type J44.9 ; Lumbago M54.5 ; Asthma J45.909 ; Tobacco abuse Z72.0 and Mental health disorder F99 [place] [address] [address] 14 Jul, 2014 [facility] [address] [id number] [place] [address] Jul, [facility] [place] [facility] [address] [id number] [place] [address] Apr, [facility] [address] [facility] [id number] [place] [address] Apr, [facility] [address] [id number] [place] [address] Apr, [facility] [address] [id number] [place] [address] Apr, [facility] [address] [facility] [id number] [place] [address] Apr, [facility] [address] [place] [address] Apr, [facility] [address] [facility] [id number] [place] [address] Apr, [facility] [address] [place] [id number] [place] [address] Apr, [facility] [address] [place] [id number] [place] [address] Mar, [facility] [place] [facility] [address] [id number] [place] [address] Mar, [facility] [place] [facility] [address] [id number], [place] [address] Feb, [facility] [place] [facility] [address] [id number] [place] [address] Feb, [facility] [place] [facility] [address] [facility] [id number] [place] [address] Feb, [facility] [place] [facility] [address] [facility] [id number] [place] [address] Feb, [facility] [place] [facility] [address] [id number] [place] [address] Sep, [facility] [place] [facility] [address] [id number] [place] [address] 29 Jul, 2012 [facility] [place] [facility] [address] [id number] [place] [address] Jun, [facility] [place] [facility] [address] [id number] [place] [address] 18 May, 2012 [facility] [place] [facility] [address] [id number] [place] [address] 15 May, 2012 [facility] [place] [facility] [address] [id number] [place] [address] 08 May, 2012 [facility] [place] [facility] [address] [id number] [place] [address] 07 May, 2012 [facility] [place] [facility] [address] [id number] [place] [address] Apr, [facility] [place] [facility] [address] [id number] [place] [address] 29 Mar, 2012 [facility] [place] [facility] [address] [id number] [place] [address] 14 Mar, 2012 [facility] [place] [facility] [address] [id number] [place] [address] 14 Mar, 2012 [facility] [place] [facility] [address] [id number] [place] [address] 14 Mar, 2012 [facility] [place] [facility] [address] [id number] [place] [address] 14 Mar, 2012 [facility] [place] [facility] [address] [id number] [place] [address] 30 Feb, 2012 [facility] [place] [facility] [address] [id number] [place] [address] 30 Feb, 2012 [facility] [place] [facility] [address] [id number] [place] [address] Feb, [facility] [place] [facility] [address] [id number] [place] [address] Feb, [facility] [place] [facility] [address] [id number] [place] [address] Feb, [facility] [place] [facility] [address] [id number] [place] [address] Feb, [facility] [place] [facility] [address] [id number] [place] [address] Feb, [facility] [place] [facility] [address] [id number] [place] [address] Jan, [facility] [place] [facility] [address] [id number] [place] [address] Jan, [facility] [place] [facility] [address] [facility] [id number] [place] [address] Jan, [facility] [place] [facility] [address] [id number] [place] [address] Jan, [facility] [place] [facility] [address] [id number] [place] [address] Oct, [facility] [place] [facility] [address] [facility] [id number] [place] [address] Jun, [facility] [place] [facility] [address] [id number] [place] [address] May, [facility] [place] [facility] [address] [id number] [place] [address] May, [facility] [place] [facility] [address] [id number] [place] [address] May, [facility] [place] [facility] [address] [id number] [place] [address] Apr, [facility] [place] [facility] [address] [facility] [id number] [place] [address] Apr, [facility] [place] [facility] [address] [facility] [id number], [place] [address] Apr, [facility] [address] [id number] [address] Apr, [facility] [address] [address] Apr, [facility] [address] [id number] [address] Feb, [facility] [address], [place] [address] Jan, [facility] [address] [address] Dec, [facility] [address] [id number] [address] Nov, IMMUNIZATIONS No Known Immunizations SOCIAL HISTORY Never Assessed REASON FOR VISIT [place] [place] VITAL SIGNS MEDICATIONS Unknown [...]
--- OUTSIDE RECORDS SUMMARY | 2018-09-05 19:37 | XMS REPORT ---
Author Author Migration, Doctor Organization [facility] Address Unknown Phone Unavailable Care Team Providers Care Smelter Charger Name Role Phone Migration, Doctor Unavailable Unavailable PROBLEMS Type Condition ICD9-CM Code INB85-RV Code Onset Dates Condition Status SNOMED Code Problem Chronic obstructive pulmonary disease, unspecified COPD type J44.9 Active 75142597 Problem Tobacco abuse Z72.0 Active 01068982 Problem Asthma J45.909 Active 455189846 Problem Lumbago with sciatica, left side M54.42 Active 134833369 Problem Panlobular emphysema J43.1 Active 8724971 Problem Lumbago M54.5 Active 034927266 Problem Mental health disorder F99 Active 85122883 Problem Other chronic pain G89.29 Active 76229042 Problem Obstructive sleep apnea syndrome G47.33 Active 50982370 ALLERGIES No Information ENCOUNTERS Encounter Location Date Diagnosis [place] [address] [address] Sep, Panlobular emphysema J43.1 [place] [address] [place] [id number] [place] [address] Sep, Lipoma of back D17.1 [place] [address] [place] [id number] [place] [address] Sep, [place] [address] [place] [id number] [place] [address] August, Panlobular emphysema J43.1 ; Lipoma of back D17.1 ; Tobacco abuse Z72.0 and Tobacco abuse counseling Z71.6 [place] [address] [place] [id number] [place] [address] Jul, [place] [address] [place] [id number] [place] [address] Jun, Asthma J45.909 [place] [address] [place] [id number] [place] [address] Apr, Foreign body in right foot, initial encounter S90.851A [place] [address] [address] 08 Dec, 2016 Lumbago with sciatica, left side M54.42 ; Other chronic pain G89.29 ; Chronic obstructive pulmonary disease, unspecified COPD type J44.9 and Obstructive sleep apnea syndrome G47.33 [place] [address] [address] Dec, Lumbago with sciatica, left side M54.42 ; Other chronic pain G89.29 ; Chronic obstructive pulmonary disease, unspecified COPD type J44.9 and Obstructive sleep apnea syndrome G47.33 [place] [address] [address] Nov, [place] [address] [address] Nov, [place] [address] [address] Nov, Cough R05 and Chronic obstructive pulmonary disease, unspecified COPD type J44.9 [place] [address] [address] Oct, [facility] [address] [place] [id number] [place] [address] Oct, Cough R05 [place] [address] [place] [id number] [place] [address] Mar, [place] [address] [address] Mar, Chronic obstructive pulmonary disease, unspecified COPD type J44.9 ; Lumbago M54.5 ; Asthma J45.909 ; Tobacco abuse Z72.0 and Mental health disorder F99 [place] [address] [address] 14 Jul, 2014 [facility] [address] [id number] [place] [address] Jul, [facility] [place] [facility] [address] [id number] [place] [address] Apr, [facility] [address] [facility] [id number] [place] [address] Apr, [facility] [address] [id number] [place] [address] Apr, [facility] [address] [id number] [place] [address] Apr, [facility] [address] [facility] [id number] [place] [address] Apr, [facility] [id number] [place] [address] Apr, [facility] [address] [facility] [id number] [place] [address] Apr, [facility] [address] [place] [id number] [place] [address] Apr, [facility] [address] [place] [id number] [place] [address] Mar, [facility] [place] [facility] [address] [id number] [place] [address] Mar, [facility] [place] [facility] [address] [id number] [address] Feb, [facility] [place] [facility] [address] [id number] [place] [address] Feb, [facility] [place] [facility] [address] [facility] [id number] [place] [address] Feb, [facility] [place] [facility] [address] [facility] [id number] [place] [address] Feb, [facility] [place] [facility] [address] [id number] [place] [address] Sep, [facility] [place] [facility] [address] [id number] [place] [address] 29 Jul, 2012 [facility] [place] [facility] [address] [id number] [place] [address] Jun, [facility] [place] [facility] [address] [id number] [place] [address] 18 May, 2012 [facility] [place] [facility] [address] [id number] [place] [address] 15 May, 2012 [facility] [place] [facility] [address] [id number] [place] [address] 08 May, 2012 [facility] [place] [facility] [address] [id number] [place] [address] 07 May, 2012 [facility] [place] [facility] [address] [id number] [place] [address] Apr, [facility] [place] [facility] [address] [id number] [place] [address] 29 Mar, 2012 [facility] [place] [facility] [address] [id number] [place] [address] 14 Mar, 2012 [facility] [place] [facility] [address] [id number] [place] [address] 14 Mar, 2012 [facility] [place] [facility] [address] [id number] [place] [address] 14 Mar, 2012 [facility] [place] [facility] [address] [id number] [place] [address] 14 Mar, 2012 [facility] [place] [facility] [address] [id number] [place] [address] 30 Feb, 2012 [facility] [place] [facility] [address] [id number] [place] [address] 30 Feb, 2012 [facility] [place] [facility] [address] [id number] [place] [address] Feb, [facility] [place] [facility] [address] [id number] [place] [address] Feb, [facility] [place] [facility] [address] [id number] [place] [address] Feb, [facility] [place] [facility] [address] [id number] [place] [address] Feb, [facility] [place] [facility] [address] [id number] [place] [address] Feb, [facility] [place] [facility] [address] [id number] [place] [address] Jan, [facility] [place] [facility] [address] [id number] [place] [address] Jan, [facility] [place] [facility] [address] [facility] [id number] [place] [address] Jan, [facility] [place] [facility] [address] [id number] [place] [address] Jan, [facility] [place] [facility] [address] [id number] [place] [address] Oct, [facility] [place] [facility] [address] [facility] [id number] [place] [address] Jun, [facility] [place] [facility] [address] [id number] [place] [address] May, [facility] [place] [facility] [address] [id number] [place] [address] May, [facility] [place] [facility] [address] [id number] [place] [address] May, [facility] [place] [facility] [address] [id number] [place] [address] Apr, [facility] [place] [facility] [address] [facility] [id number] [place] [address] Apr, [facility] [place] [facility] [address] [facility] [id number], [place] [address] Apr, [facility] [address] [place] [id number] [address] Apr, [facility] [address] [address] Apr, [facility] [address] [place] [id number] [address] Feb, [facility] [address] [address] Jan, [facility] [address] [address] Dec, [facility] [address] [place] [id number], [place] [address] Nov, IMMUNIZATIONS No Known Immunizations SOCIAL HISTORY Never Assessed REASON FOR VISIT [place] [place] C[place] VITAL SIGNS MEDICATIONS Unknown [...]
--- OUTSIDE RECORDS SUMMARY | 2018-09-05 19:37 | XMS REPORT | Clinical Summary ---
Author Author [facility] Organization [facility] Address Unknown Phone Unavailable Care Team Providers Care Microcomputer Technician Name Role Phone Unverified, Unverified Md PCP Unavailable Hi Workman MD Unavailable Source Comments Some departments are not documenting in the electronic medical record. If you d o not see the information that you expected, contact Release of Information in [facility] Information Management department at [phone] for further assistan ce in locating additional records.[facility] Allergies Not on File Medications Not on [...] VACCINES ( - 08/31/1987 Tdap) INFLUENZA VACCINE 01/17/2019 Results Not on filefrom Last 3 Months
--- OUTSIDE RECORDS SUMMARY | 2018-09-05 19:37 | XMS REPORT ---
Author Author Migration, Doctor Organization [facility] Address Unknown Phone Unavailable Care Team Providers Care Staff Attorney Name Role Phone Migration, Doctor Unavailable Unavailable PROBLEMS Type Condition ICD9-CM Code [id number] Code Onset Dates Condition Status SNOMED Code Problem Chronic obstructive pulmonary disease, unspecified COPD type J44.9 Active 96715498 Problem Tobacco abuse Z72.0 Active 45061776 Problem Asthma J45.909 Active 909069555 Problem Lumbago with sciatica, left side M54.42 Active 099922652 Problem Panlobular emphysema J43.1 Active 6844948 Problem Lumbago M54.5 Active 534004286 Problem Mental health disorder F99 Active 76984653 Problem Other chronic pain G89.29 Active 06487693 Problem Obstructive sleep apnea syndrome G47.33 Active [id number] ALLERGIES No Information ENCOUNTERS Encounter Location Date Diagnosis [place] [address] [address] Sep, Panlobular emphysema J43.1 [place] [address] [place] [id number] [place] [address] Sep, Lipoma of back D17.1 [place] [address] [place] [id number] [place] [address] Sep, [place] [address] [place] [id number] [place] [address] August, Panlobular emphysema J43.1 ; Lipoma of back D17.1 ; Tobacco abuse Z72.0 and Tobacco abuse counseling Z71.6 [place] [address] [place] [id number] [place] [address] Jul, [place] [address] [place] [id number] [place] [address] Jun, Asthma J45.909 [place] [address] [place] [id number] [place] [address] Apr, Foreign body in right foot, initial encounter S90.851A [place] [address] [address] 08 Dec, 2016 Lumbago with sciatica, left side M54.42 ; Other chronic pain G89.29 ; Chronic obstructive pulmonary disease, unspecified COPD type J44.9 and Obstructive sleep apnea syndrome G47.33 [place] [address] [address] Dec, Lumbago with sciatica, left side M54.42 ; Other chronic pain G89.29 ; Chronic obstructive pulmonary disease, unspecified COPD type J44.9 and Obstructive sleep apnea syndrome G47.33 [place] [address] [address] Nov, [place] [address] [address] Nov, [place] [address] [address] Nov, Cough R05 and Chronic obstructive pulmonary disease, unspecified COPD type J44.9 [place] [address] [address] Oct, [facility] [address] [place] [id number] [place] [address] Oct, Cough R05 [place] [address] [place] [id number] [place] [address] Mar, [place] [address] [address] Mar, Chronic obstructive pulmonary disease, unspecified COPD type J44.9 ; Lumbago M54.5 ; Asthma J45.909 ; Tobacco abuse Z72.0 and Mental health disorder F99 [place] [address] [address] 14 Jul, 2014 [facility] [address] [id number] [place] [address] Jul, [facility] [place] [facility] [address] [id number] [place] [address] Apr, [facility] [address] [facility] [id number] [place] [address] Apr, [facility] [address] [id number] [place] [address] Apr, [facility] [address] [id number] [place] [address] Apr, [facility] [address] [facility] [id number] [place] [address] Apr, [facility] [id number] [place] [address] Apr, [facility] [address] [facility] [id number] [place] [address] Apr, [facility] [address] [place] [id number] [place] [address] Apr, [facility] [address] [place] [id number] [place] [address] Mar, [facility] [place] [facility] [address] [id number] [place] [address] Mar, [facility] [place] [facility] [address] [id number] [address] Feb, [facility] [place] [facility] [address] [id number] [place] [address] Feb, [facility] [place] [facility] [address] [facility] [id number] [place] [address] Feb, [facility] [place] [facility] [address] [facility] [id number] [place] [address] Feb, [facility] [place] [facility] [address] [id number] [place] [address] Sep, [facility] [place] [facility] [address] [id number] [place] [address] 29 Jul, 2012 [facility] [place] [facility] [address] [id number] [place] [address] Jun, [facility] [place] [facility] [address] [id number] [place] [address] 18 May, 2012 [facility] [place] [facility] [address] [id number] [place] [address] 15 May, 2012 [facility] [place] [facility] [address] [id number] [place] [address] 08 May, 2012 [facility] [place] [facility] [address] [id number] [place] [address] 07 May, 2012 [facility] [place] [facility] [address] [id number] [place] [address] Apr, [facility] [place] [facility] [address] [id number] [place] [address] 29 Mar, 2012 [facility] [place] [facility] [address] [id number] [place] [address] 14 Mar, 2012 [facility] [place] [facility] [address] [id number] [place] [address] 14 Mar, 2012 [facility] [place] [facility] [address] [id number] [place] [address] 14 Mar, 2012 [facility] [place] [facility] [address] [id number] [place] [address] 14 Mar, 2012 [facility] [place] [facility] [address] [id number] [place] [address] 30 Feb, 2012 [facility] [place] [facility] [address] [id number] [place] [address] 30 Feb, 2012 [facility] [place] [facility] [address] [id number] [place] [address] Feb, [facility] [place] [facility] [address] [id number] [place] [address] Feb, [facility] [place] [facility] [address] [id number] [place] [address] Feb, [facility] [place] [facility] [address] [id number] [place] [address] Feb, [facility] [place] [facility] [address] [id number] [place] [address] Feb, [facility] [place] [facility] [address] [id number] [place] [address] Jan, [facility] [place] [facility] [address] [id number] [place] [address] Jan, [facility] [place] [facility] [address] [facility] [id number] [place] [address] Jan, [facility] [place] [facility] [address] [id number] [place] [address] Jan, [facility] [place] [facility] [address] [id number] [place] [address] Oct, [facility] [place] [facility] [address] [facility] [id number] [place] [address] Jun, [facility] [place] [facility] [address] [id number] [place] [address] May, [facility] [place] [facility] [address] [id number] [place] [address] May, [facility] [place] [facility] [address] [id number] [place] [address] May, [facility] [place] [facility] [address] [id number] [place] [address] Apr, [facility] [place] [facility] [address] [facility] [id number] [place] [address] Apr, [facility] [place] [facility] [address] [facility] [id number], [place] [address] Apr, [facility] [address] [place] [id number] [address] Apr, [facility] [address] [address] Apr, [facility] [address] [place] [id number] [address] Feb, [facility] [address] [address] Jan, [facility] [address] [address] Dec, [facility] [address] [place] [id number] [address] Nov, IMMUNIZATIONS No Known Immunizations SOCIAL HISTORY Never Assessed [place] V[place] [place] VITAL SIGNS MEDICATIONS Unknown [...]
--- OUTSIDE RECORDS SUMMARY | 2018-09-05 19:38 | XMS REPORT ---
Author Author Migration, Doctor Organization [facility] Address Unknown Phone Unavailable Care Team Providers Care Contracts Advisor Name Role Phone Migration, Doctor Unavailable Unavailable PROBLEMS Type Condition ICD9-CM Code [id number] Code Onset Dates Condition Status SNOMED Code Problem Chronic obstructive pulmonary disease, unspecified COPD type J44.9 Active 44565903 Problem Tobacco abuse Z72.0 Active 20357293 Problem Asthma J45.909 Active 028708305 Problem Lumbago with sciatica, left side M54.42 Active 617919162 Problem Panlobular emphysema J43.1 Active 8713960 Problem Lumbago M54.5 Active 362315954 Problem Mental health disorder F99 Active 61251812 Problem Other chronic pain G89.29 Active 11069682 Problem Obstructive sleep apnea syndrome G47.33 Active 88371753 ALLERGIES No Information ENCOUNTERS Encounter Location Date Diagnosis [place] [address] [address] Sep, Panlobular emphysema J43.1 [place] [address] [place] [id number] [place] [address] Sep, Lipoma of back D17.1 [place] [address] [place] [id number] [place] [address] Sep, [place] [address] [address] August, Panlobular emphysema J43.1 ; Lipoma of back D17.1 ; Tobacco abuse Z72.0 and Tobacco abuse counseling Z71.6 [place] [address] [place] [id number] [place] [address] Jul, [place] [address] [place] [id number] [place] [address] Jun, Asthma J45.909 [place] [address] [place] [id number] [place] [address] Apr, Foreign body in right foot, initial encounter S90.851A [place] [address] [address] 08 Dec, 2016 Lumbago with sciatica, left side M54.42 ; Other chronic pain G89.29 ; Chronic obstructive pulmonary disease, unspecified COPD type J44.9 and Obstructive sleep apnea syndrome G47.33 [place] [address] [address] Dec, Lumbago with sciatica, left side M54.42 ; Other chronic pain G89.29 ; Chronic obstructive pulmonary disease, unspecified COPD type J44.9 and Obstructive sleep apnea syndrome G47.33 [place] [address] [address] Nov, [place] [address] [address] Nov, [place] [address] [address] Nov, Cough R05 and Chronic obstructive pulmonary disease, unspecified COPD type J44.9 [place] [address] [address] Oct, [facility] [address] [place] [id number] [place] [address] Oct, Cough R05 [place] [address] [place] [id number] [place] [address] Mar, [place] [address] [address] Mar, Chronic obstructive pulmonary disease, unspecified COPD type J44.9 ; Lumbago M54.5 ; Asthma J45.909 ; Tobacco abuse Z72.0 and Mental health disorder F99 [place] [address] [address] 14 Jul, 2014 [facility] [address] [id number] [place] [address] Jul, [facility] [place] [facility] [address] [id number] [place] [address] Apr, [facility] [address] [facility] [id number] [place] [address] Apr, [facility] [address] [id number] [place] [address] Apr, [facility] [address] [id number] [place] [address] Apr, [facility] [address] [facility] [id number] [place] [address] Apr, [facility] [address] [place] [address] Apr, [facility] [address] [facility] [id number] [place] [address] Apr, [facility] [address] [place] [id number] [place] [address] Apr, [facility] [address] [place] [id number] [place] [address] Mar, [facility] [place] [facility] [address] [id number] [place] [address] Mar, [facility] [place] [facility] [address] [id number], [place] [address] Feb, [facility] [place] [facility] [address] [id number] [place] [address] Feb, [facility] [place] [facility] [address] [facility] [id number] [place] [address] Feb, [facility] [place] [facility] [address] [facility] [id number] [place] [address] Feb, [facility] [place] [facility] [address] [id number] [place] [address] Sep, [facility] [place] [facility] [address] [id number] [place] [address] 29 Jul, 2012 [facility] [place] [facility] [address] [id number] [place] [address] Jun, [facility] [place] [facility] [address] [id number] [place] [address] 18 May, 2012 [facility] [place] [facility] [address] [id number] [place] [address] 15 May, 2012 [facility] [place] [facility] [address] [id number] [place] [address] 08 May, 2012 [facility] [place] [facility] [address] [id number] [place] [address] 07 May, 2012 [facility] [place] [facility] [address] [id number] [place] [address] Apr, [facility] [place] [facility] [address] [id number] [place] [address] 29 Mar, 2012 [facility] [place] [facility] [address] [id number] [place] [address] 14 Mar, 2012 [facility] [place] [facility] [address] [id number] [place] [address] 14 Mar, 2012 [facility] [place] [facility] [address] [id number] [place] [address] 14 Mar, 2012 [facility] [place] [facility] [address] [id number] [place] [address] 14 Mar, 2012 [facility] [place] [facility] [address] [id number] [place] [address] 30 Feb, 2012 [facility] [place] [facility] [address] [id number] [place] [address] 30 Feb, 2012 [facility] [place] [facility] [address] [id number] [place] [address] Feb, [facility] [place] [facility] [address] [id number] [place] [address] Feb, [facility] [place] [facility] [address] [id number] [place] [address] Feb, [facility] [place] [facility] [address] [id number] [place] [address] Feb, [facility] [place] [facility] [address] [id number] [place] [address] Feb, [facility] [place] [facility] [address] [id number] [place] [address] Jan, [facility] [place] [facility] [address] [id number] [place] [address] Jan, [facility] [place] [facility] [address] [facility] [id number] [place] [address] Jan, [facility] [place] [facility] [address] [id number] [place] [address] Jan, [facility] [place] [facility] [address] [id number] [place] [address] Oct, [facility] [place] [facility] [address] [facility] [id number] [place] [address] Jun, [facility] [place] [facility] [address] [id number] [place] [address] May, [facility] [place] [facility] [address] [id number] [place] [address] May, [facility] [place] [facility] [address] [id number] [place] [address] May, [facility] [place] [facility] [address] [id number] [place] [address] Apr, [facility] [place] [facility] [address] [facility] [id number] [place] [address] Apr, [facility] [place] [facility] [address] [facility] [id number], [place] [address] Apr, [facility] [address] [place] [id number] [address] Apr, [facility] [address], [place] [address] Apr, [facility] [address] [place] [id number] [address] Feb, [facility] [address], [place] [address] Jan, [facility] [address], [place] [address] Dec, [facility] [address] [place] [address] [id number], [place] [address] Nov, IMMUNIZATIONS No Known Immunizations SOCIAL HISTORY Never Assessed REASON FOR VISIT EMR-[facility] [place] PLAN OF CARE VITAL SIGNS MEDICATIONS Unknown [...]
--- OUTSIDE RECORDS SUMMARY | 2018-09-05 19:38 | XMS REPORT ---
Author Author Migration, Doctor Organization [facility] Address Unknown Phone Unavailable Care Team Providers Care Scrap Crusher Name Role Phone Migration, Doctor Unavailable Unavailable PROBLEMS Type Condition ICD9-CM Code XYI21-UU Code Onset Dates Condition Status SNOMED Code Problem Chronic obstructive pulmonary disease, unspecified COPD type J44.9 Active 95764181 Problem Tobacco abuse Z72.0 Active 66544395 Problem Asthma J45.909 Active 387716652 Problem Lumbago with sciatica, left side M54.42 Active 019446085 Problem Panlobular emphysema J43.1 Active 2478569 Problem Lumbago M54.5 Active 814104677 Problem Mental health disorder F99 Active 02128970 Problem Other chronic pain G89.29 Active 22038475 Problem Obstructive sleep apnea syndrome G47.33 Active 81173158 ALLERGIES No Information ENCOUNTERS Encounter Location Date Diagnosis [place] [address] [address] Sep, Panlobular emphysema J43.1 [place] [address] [place] [id number] [place] [address] Sep, Lipoma of back D17.1 [place] [address] [place] [id number] [place] [address] Sep, [place] [address] [place] [id number] [place] [address] August, Panlobular emphysema J43.1 ; Lipoma of back D17.1 ; Tobacco abuse Z72.0 and Tobacco abuse counseling Z71.6 [place] [address] [place] [id number] [place] [address] Jul, [place] [address] [place] [id number] [place] [address] Jun, Asthma J45.909 [place] [address] [place] [id number] [place] [address] Apr, Foreign body in right foot, initial encounter S90.851A [place] [address] [address] 08 Dec, 2016 Lumbago with sciatica, left side M54.42 ; Other chronic pain G89.29 ; Chronic obstructive pulmonary disease, unspecified COPD type J44.9 and Obstructive sleep apnea syndrome G47.33 [place] [address] [address] Dec, Lumbago with sciatica, left side M54.42 ; Other chronic pain G89.29 ; Chronic obstructive pulmonary disease, unspecified COPD type J44.9 and Obstructive sleep apnea syndrome G47.33 [place] [address] [address] Nov, [place] [address] [address] Nov, [place] [address] [address] Nov, Cough R05 and Chronic obstructive pulmonary disease, unspecified COPD type J44.9 [place] [address] [address] Oct, [facility] [address] [place] [id number] [place] [address] Oct, Cough R05 [place] [address] [place] [id number] [place] [address] Mar, [place] [address] [address] Mar, Chronic obstructive pulmonary disease, unspecified COPD type J44.9 ; Lumbago M54.5 ; Asthma J45.909 ; Tobacco abuse Z72.0 and Mental health disorder F99 [place] [address] [address] 14 Jul, 2014 [facility] [address] [id number] [place] [address] Jul, [facility] [place] [facility] [address] [id number] [place] [address] Apr, [facility] [address] [facility] [id number] [place] [address] Apr, [facility] [address] [id number] [place] [address] Apr, [facility] [address] [id number] [place] [address] Apr, [facility] [address] [facility] [id number] [place] [address] Apr, [facility] [id number] [place] [address] Apr, [facility] [address] [facility] [id number] [place] [address] Apr, [facility] [address] [place] [id number] [place] [address] Apr, [facility] [address] [place] [id number] [place] [address] Mar, [facility] [place] [facility] [address] [id number] [place] [address] Mar, [facility] [place] [facility] [address] [id number] [address] Feb, [facility] [place] [facility] [address] [id number] [place] [address] Feb, [facility] [place] [facility] [address] [facility] [id number] [place] [address] Feb, [facility] [place] [facility] [address] [facility] [id number] [place] [address] Feb, [facility] [place] [facility] [address] [id number] [place] [address] Sep, [facility] [place] [facility] [address] [id number] [place] [address] 29 Jul, 2012 [facility] [place] [facility] [address] [id number] [place] [address] Jun, [facility] [place] [facility] [address] [id number] [place] [address] 18 May, 2012 [facility] [place] [facility] [address] [id number] [place] [address] 15 May, 2012 [facility] [place] [facility] [address] [id number] [place] [address] 08 May, 2012 [facility] [place] [facility] [address] [id number] [place] [address] 07 May, 2012 [facility] [place] [facility] [address] [id number] [place] [address] Apr, [facility] [place] [facility] [address] [id number] [place] [address] 29 Mar, 2012 [facility] [place] [facility] [address] [id number] [place] [address] 14 Mar, 2012 [facility] [place] [facility] [address] [id number] [place] [address] 14 Mar, 2012 [facility] [place] [facility] [address] [id number] [place] [address] 14 Mar, 2012 [facility] [place] [facility] [address] [id number] [place] [address] 14 Mar, 2012 [facility] [place] [facility] [address] [id number] [place] [address] 30 Feb, 2012 [facility] [place] [facility] [address] [id number] [place] [address] 30 Feb, 2012 [facility] [place] [facility] [address] [id number] [place] [address] Feb, [facility] [place] [facility] [address] [id number] [place] [address] Feb, [facility] [place] [facility] [address] [id number] [place] [address] Feb, [facility] [place] [facility] [address] [id number] [place] [address] Feb, [facility] [place] [facility] [address] [id number] [place] [address] Feb, [facility] [place] [facility] [address] [id number] [place] [address] Jan, [facility] [place] [facility] [address] [id number] [place] [address] Jan, [facility] [place] [facility] [address] [facility] [id number] [place] [address] Jan, [facility] [place] [facility] [address] [id number] [place] [address] Jan, [facility] [place] [facility] [address] [id number] [place] [address] Oct, [facility] [place] [facility] [address] [facility] [id number] [place] [address] Jun, [facility] [place] [facility] [address] [id number] [place] [address] May, [facility] [place] [facility] [address] [id number] [place] [address] May, [facility] [place] [facility] [address] [id number] [place] [address] May, [facility] [place] [facility] [address] [id number] [place] [address] Apr, [facility] [place] [facility] [address] [facility] [id number] [place] [address] Apr, [facility] [place] [facility] [address] [facility] [id number] [address] Apr, [facility] [address] [id number] [address] Apr, [facility] [id number] [address] Apr, [facility] [address] [id number] [address] Feb, [facility] [id number] [address] Jan, [facility] [id number] [address] Dec, [facility] [address] [place] [id number] [address] Nov, IMMUNIZATIONS No Known Immunizations SOCIAL HISTORY Never Assessed REASON FOR VISIT EMR-[facility] PLAN OF CARE VITAL SIGNS MEDICATIONS Unknown [...]
--- OUTSIDE RECORDS SUMMARY | 2018-09-05 19:41 | XMS REPORT | Continuity of Care Document ---
Author Organization Unknown Address Unknown Allergies Active Description Code Type Severity Reaction Onset Reported/Identified Relationship to Patient Clinical Status Yes Haldol Drug Allergy 04/01/2012 Yes Haldol Drug Allergy N/A N/A 04/01/2012 Yes haloperidol [id number] Drug Allergy Unknown N/A 06/21/2018 Yes Haloperidol Lactate [id number] Drug Allergy Unknown N/A 06/21/2018 Medications There is no data. Problems Date Dx Coded Attending Type Code Diagnosis Diagnosed By 05/13/2010 ABREU DO CHECO K 724.2 Lower Back Pain 05/13/2010 ABREU DO CHECO K 724.4 LUMBAR RADICULOPATHY 05/13/2010 ABREU [...] 305.1 Nicotine Dependence 12/02/2010 ARCHANA ZAMBRANO MD 496 Chronic Obstructive Pulmonary Disease 12/02/2010 ARCHANA ZAMBRANO MD V65.42 Intervention And Counseling On Cessation Of Tobacco Use 01/02/2011 ABREU DO CHECO K 780.57 Unspecified Sleep Apnea 01/02/2011 ABREU DO CHECO K 786.2 Cough 01/02/2011 ABREU SHY FRANCISCOA K 789.02 Abdominal Pain Left Upper Quadrant [...] 491.0 CHRONIC BRONCHITIS - SIMPLE 05/18/2011 ABREU SHY FRANCISCOA K 493.90 ASTHMA UNSPECIFIED 05/18/2011 ABREU DO, CHECO K 491.0 CHRONIC BRONCHITIS - SIMPLE 05/18/2011 ABREU DO, CHECO K 493.90 ASTHMA UNSPECIFIED 05/18/2011 ABREU DO CHE[place] K 491.0 CHRONIC BRONCHITIS - SIMPLE [...] PAIN IN JOINT INVOLVING SHOULDER REGION 04/28/2013 SHY ABREU DOA K 305.1 TOBACCO ABUSE 04/28/2013 CHECO ABREU DO K 496 COPD 04/28/2013 SHY ABREU DOA K 724.2 LUMBAGO 04/28/2013 SHY ABREU DOA K V65.42 COUNSELING - SMOKING CESSATION 04/28/2013 SHY ABREU DOA K 305.1 TOBACCO ABUSE 04/28/2013 SHY ABREU DOA K 496 COPD 04/28/2013 SHY ABREU DOA K 724.2 LUMBAGO 04/28/2013 CHECO ABREU DO V65.42 COUNSELING - SMOKING CESSATION 03/19/2016 MINERVA SHANNON MOTHER REPAIRER Ot F17.210 NICOTINE DEPENDENCE, CIGARETTES, UNCOMPL 03/19/2016 MINERVA SHANNON MOTHER REPAIRER Ot J44.0 CHRONIC OBSTRUCTIVE PULMON DISEASE W [...] CHRONIC OBSTRUCTIVE PULMON DISEASE W ACU 03/20/2016 IMNERVA SHANNON APRN Ot R07.81 PLEURODYNIA 03/20/2016 MIN[place]A [...] R06.02 SHORTNESS OF BREATH 10/30/2016 CLEO HUI Ot 305.1 TOBACCO USE [...] MOVEMEN 08/08/2017 ALEJANDRA MENDOZA MD Ot 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 08/08/2017 ALEJANDRA MENDOZA MD Ot Z87.19 PERSONAL HISTORY OF OTHER DISEASES OF TH 08/08/2017 ALEJANDRA MENDOZA MD Ot Z88.8 ALLERGY [...] MOVEMEN 08/10/2017 ALEJANDRA MENDOZA MD Ot Z79.52 SHELTER (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 08/10/2017 ALEJANDRA MENDOZA MD Ot Z87.19 PERSONAL HISTORY OF OTHER DISEASES OF 08/10/2017 ALEJANDRA MENDOZA MD Ot Z88.8 ALLERGY [...] MOVEMEN 08/14/2017 ALEJANDRA MENDOZA MD Ot 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1 UMBILICAL HERNIA 06/21/2018 CIERA TINSLEY, CLEO [place] Ot 305.1 TOBACCO USE DISORDER 06/21/2018 CIERA TINSLEY, CLEO Mora Ot 496 CHR AIRWAY OBSTRUCT NEC 06/21/2018 CIERA TINSLEY, CLEO [place] Ot 553.1 UMBILICAL HERNIA 06/21/2018 ROSIO VENTURA MD Ot F17.210 NICOTINE DEPENDENCE, CIGARETTES, UNCOMPL 06/21/2018 ROSIO VENTURA MD Ot G47.30 SLEEP APNEA, UNSPECIFIED 06/21/2018 ROSIO VENTURA MD Ot J18.9 PNEUMONIA, UNSPECIFIED ORGANISM 06/21/2018 ROSIO VENTURA MD Ot J44.9 CHRONIC OBSTRUCTIVE PULMONARY DISEASE, U 06/21/2018 ROSIO VENTURA MD M Ot R05 COUGH 06/21/2018 ROSIO VENTURA MD M Ot Z79.52 SHELTER (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 06/21/2018 ROSIO VENTURA MD Ot Z88.8 ALLERGY STATUS TO OTH DRUG/MEDS/BIOL SUB 06/21/2018 ROSIO VENTURA MD Ot Z98.890 OTHER SPECIFIED POSTPROCEDURAL STATES 06/23/2018 ROSIO VENTURA MD Ot F17.210 NICOTINE DEPENDENCE, CIGARETTES, UNCOMPL 06/23/2018 ROSIO VENTURA MD Ot G47.30 SLEEP APNEA, UNSPECIFIED 06/23/2018 ROSIO VENTURA MD M Ot J18.9 PNEUMONIA, UNSPECIFIED ORGANISM 06/23/2018 ROSIO VENTURA MD M Ot J44.9 CHRONIC OBSTRUCTIVE PULMONARY DISEASE, U 06/23/2018 ROSIO VENTURA MD M Ot R05 COUGH 06/23/2018 ROSIO VENTURA MD M Ot Z79.52 SHELTER (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 06/23/2018 ROSIO VENTURA MD Ot Z88.8 ALLERGY STATUS TO OTH DRUG/MEDS/BIOL SUB 06/23/2018 ROSIO VENTURA MD Ot Z98.890 OTHER SPECIFIED POSTPROCEDURAL STATES Procedures Code Description Performed By Performed On JASWANT MANRIQUEZ 04/02/2012 49089 XRAY CHEST 2 VIEW 04/28/[address] CHEST W/O DYE 04/28/[address] ABDOMEN W/ AND W/O CONTRAST 04/28/2013 [...] Automated erythrocyte mean corpuscular hemoglobin concentration measurement (mass/volume) 34 g/dL 32-36 Automated erythrocyte distribution width ratio 13.1 % 10.0- 14.5 Automated blood platelet count (count/volume) 244 10*3/uL [...] Blood monocytes automated count (number/volume) 0.8 10*3 0.0- 1.0 Automated eosinophil count 0.6 10*3/uL 0.0-0.3 Automated [...] measurement in platelet poor plasma (mass/volume) - 03/19/16 11:26 Fibrin D-dimer FEU measurement in platelet [...] NRG Blood erythrocyte morphology finding identification [facility] Comprehensive metabolic panel - 03/19/16 11:26 Serum [...] Serum or plasma aspartate aminotransferase measurement (enzymatic activity/volume) 16 U/L 5-34 Serum or plasma alanine aminotransferase measurement (enzymatic activity/volume) 16 U/L 0-55 Serum or plasma protein [...] Automated erythrocyte mean corpuscular hemoglobin concentration measurement (mass/volume) 35 g/dL 32-36 Automated erythrocyte distribution width ratio 13.1 % 10.0- 14.5 Automated blood platelet count (count/volume) 285 10*3/uL [...] Blood monocytes automated count (number/volume) 0.9 10*3 0.0- 1.0 Automated eosinophil count 0.2 10*3/uL 0.0-0.3 Automated [...] Serum or plasma aspartate aminotransferase measurement (enzymatic activity/volume) 19 U/L 5-34 Serum or plasma alanine aminotransferase measurement (enzymatic activity/volume) 29 U/L 0-55 Serum or plasma protein measurement (mass/volume) 7.5 g/dL 6.4-8.2 Serum or plasma albumin measurement (mass/volume) 4.5 g/dL 3.2-4.5 Magnesium - 08/08/17 14:32 Magnesium 2.5 mg/dL 1.8-2.4 THYROID STIMULATING HORMONE - 08/08/17 14:32 THYROID STIMULATING HORMONE 0.77 u[iU]/mL 0.35-4.94 Encounters ACCT No. Visit Date/Time Discharge Status Pt. Type Provider Facility Loc./Unit Complaint [id number] 04/28/2013 11:34:00 04/28/2013 23:59:59 CLS Outpatient CHECO ABREU DO [id number] 04/28/2013 11:34:00 04/28/2013 23:59:59 CLS Outpatient CHECO ABREU DO [id number] 08/17/2012 00:00:00 08/17/2012 23:59:59 CLS Outpatient CHECO ABREU DO [id number] 06/06/2012 16:31:00 06/06/2012 23:59:59 CLS Outpatient CHECO ABREU DO [id number] 06/03/2012 08:57:00 06/03/2012 23:59:59 CLS Outpatient [id number] 04/01/2012 16:04:00 04/01/2012 23:59:59 [place] [id number] 02/26/2012 14:06:00 02/26/2012 23:59:59 CLS Outpatient ARCHANA ZAMBRANO MD [id number] 12/26/2016 08:35:00 Document Registration [id number] 10/12/2017 16:00:00 10/12/2017 23:59:59 CLS Outpatient ANNABEL PERSAUD APRN [facility] [id number] 12/25/2016 11:40:00 Document Registration [id number] 06/21/2018 09:20:00 06/21/2018 11:30:00 DIS Emergency AUDREY ROMERO, ROSIO Mor[place] [facility] ER FS COUGH; LUNG PAIN [id number] 08/08/2017 13:56:00 08/08/2017 17:44:00 DIS Emergency ALEJANDRA MENDOZA MD [facility] ER SEIZURES [id number] 10/29/2016 22:36:00 10/30/2016 00:24:00 DIS Emergency CLEO WARD MD [facility] ER SOB,COUGH,ABD PAIN [id number] 03/19/2016 11:11:00 03/19/2016 12:48:00 DIS Emergency MINERVA SHANNON APRN [facility] ER CHEST PAIN/SOA [id number] 05/09/2013 09:47:00 05/09/2013 23:59:59 CLS Outpatient CLEO HUI [facility] RAD F/U HERNIA,COPD,CHRONIC SMOKER,CHRONIC COUGH [id number] 09/05/2018 19:33:00 ACT Emergency ILDA ROJAS DO [facility] ER FS BACK PAIN [id number] 03/19/2016 12:53:00 Document Registration [id number] 06/18/2011 13:25:00 Document Registration [id number] 04/16/2011 07:22:00 Document Registration [id number] 01/05/2011 15:06:00 Document Registration
--- NOTE | 2018-09-05 19:55 | ED Back Pain ---
General Chief Complaint: Back Problems Stated Complaint: BACK PAIN Nursing Triage Note: pt. reported he is having back pain between his shoulders and lower back. pt. stated the back pain started about 4 or 5 days ago. pt. reported his pain is so bad he has fell do to sharp pain in his back when he stood up. Nursing Sepsis Screen: No Definite Risk History of Present Illness Date Seen by Provider: September 05, 2018 Time Seen by Provider: 19:45 Other Comments Back pain. This is a 48-year-old male who complains of worsening of his "chronic back pain" over the last 5 days. He has no weakness or numbness or tingling. He has no incontinence or retention of urine or stool, no fever or chills. No chest pain or shortness of breath. He does have a prescription for albuterol which she does not use, he also is supposed to take a muscle relaxer and anti-inflammatory medication he states but he also does not take these. He does not have a local doctor yet. Denies a history of cancer or IVDA. Allergies and Home Medications Allergies Coded Allergies: Haloperidol Lactate (Verified Allergy, Unknown, 09/05/18) haloperidol (Verified Allergy, Unknown, 09/05/18) Home Medications Azithromycin 250 Mg Tablet, 250 MG PO DAILY Prescribed by: CLEO OLIVER on 10/30/16 001 Benzonatate 200 Mg Capsule, 200 MG PO TID Prescribed by: CLEO OLIVER on 10/30/16 001 Guaifenesin/Codeine Phosphate 118 Ml Liquid, 118 ML PO Q6H PRN for COUGH Prescribed by: ROSIO VENTURA on 06/21/18 1058 Levofloxacin 750 Mg Tablet, 750 MG PO DAILY Start on 06/22/18 (was given a dose in the ER) Prescribed by: ROSIO VENTURA on 06/21/18 1059 Prednisone 20 Mg Tab, 20 MG PO DAILY Prescribed by: CLEO OLIVER on 10/30/16 0016 Prednisone 20 Mg Tab, 40 MG PO DAILY Prescribed by: ALEJANDRA MENDOZA on 08/08/17 1708 Prednisone 20 Mg Tab, 40 MG PO DAILY Prescribed by: ROSIO VENTURA on 06/21/18 1058 Patient Home Medication List Home Medication List Reviewed: Yes Review of Systems Constitutional: no symptoms reported EENTM: no symptoms reported Respiratory: no symptoms reported Cardiovascular: no symptoms reported Gastrointestinal: no symptoms reported Genitourinary: no symptoms reported Musculoskeletal: see HPI Skin: no symptoms reported Psychiatric/Neurological: No Symptoms Reported Past Kxklzrg-Bpwiax-Mslnsi Hx Past Med/Social Hx: Reviewed Nursing Past Med/Soc Hx Patient Social History Type Used: Cigarettes 2nd Hand Smoke Exposure: Yes Recent Foreign Travel: No Contact w/Someone Who Travel: No Recent Infectious Disease Expo: No Recent Hopitalizations: No Physical Abuse: No Sexual Abuse: No Mistreated: No Fear: No Seasonal Allergies Seasonal Allergies: No Past Medical History Surgeries: No Orthopedic Respiratory: Yes COPD Cardiac: No Neurological: No Genitourinary: No Gastrointestinal: No Musculoskeletal: Yes (Back pain) Endocrine: No HEENT: No Cancer: No Psychosocial: No Integumentary: No Blood Disorders: No Physical Exam Vital Signs Vital Signs - First Documented 09/05/18 19:35 Temp 97.8 Pulse 80 Resp 20 B/P (MAP) 137/93 (108) O2 Delivery Room Air Capillary Refill : Less Than 3 Seconds Height, Weight, BMI Height: 5'9.00" Weight: 200lbs. oz. 90.548427ds; BMI Method:Stated General Appearance: No Apparent Distress HEENT: Moist Mucous Membranes Neck: Non Tender, Supple Cardiovascular: Regular Rate, Rhythm, Normal Peripheral Pulses Respiratory: Lungs Clear; No Rales, No Rhonci, No Wheezing Gastrointestinal: No Pulsatile Mass, Non Tender, Soft Back: Other (there is tenderness across the back at the level of the midthoraci c and lower thoracic/upper lumbar region in the bilateral paraspinal musculature but also crossing the midline) Neurologic/Psychiatric: Alert, No Motor/Sensory Deficits; No Abnormal Gait; Other (lower extremity reflexes symmetrical) Skin: Warm/Dry Progress/Results/Core Measures Results/Orders My Orders Orders - ILDA ROJAS DO Thoracic Spine 2 View Only (09/05/18 19:53) Lumbar Spine 2 Or 3 View (09/05/18 19:53) Hydrocodone/Apap 5/325 Tablet (Lortab 5 (09/05/18 20:00) Medications Given in ED Current Medications Medications Dose Ordered Sig/Everardo Route Start Time Stop Time Status Last Admin Dose Admin Acetaminophen/ Hydrocodone Bitart 2 tab ONCE ONCE PO 09/05/18 20:00 09/05/18 20:01 DC 09/05/18 20:00 2 TAB Vital Signs/I&O 09/05/18 19:35 Temp 97.8 Pulse 80 Resp 20 B/P (MAP) 137/93 (108) O2 Delivery Room Air Blood Pressure Mean: 108 Progress Progress Note #1: Progress Note This is a 48-year-old male here complaining that his chronic back pain has been bothering him more over the last 5 days. He is neurovascularly intact. He has no chest pain or abdominal pain. He has no systemic symptoms. Given that his pain does involve the midline structures I we will obtain x-rays of the thoracic and lumbar spine to evaluate for possible compression fractures, much less likely neoplastic lesions. Given that this is an ongoing issue for which she has been treated by his doctor in the past and the lack of additional symptoms it is unlikely that this is caused by ACS or an aortic aneurysm for example, epidural abscess or epidural hematoma. If x-rays are unremarkable we will discharge him, he is already trying to establish care with a local primary care physician. Progress Note #2: Progress Note No recent prescription for controlled substances on [facility] website. Patient feels better and wants to go home. X-rays negative for acute process. Return for any new or worsening symptoms. Otherwise follow-up with primary care physician. Departure Impression Primary Impression: Degenerative spinal arthritis Additional Impression: Chronic pain Disposition: HOME, SELF-CARE Condition: Stable Departure-Patient Inst. Referrals: ANNABEL PERSAUD (PCP/Family) Primary Care Physician Patient Instructions: MANAGING YOUR CHRONIC PAIN Scripts Hydrocodone/Acetaminophen (Kendall 5-325 Tablet) 1 Each Tablet 1 TAB PO Q6H PRN for PAIN-MODERATE MDD 10 TABS for 4 Days, #16 TAB Prov: ILDA ROJAS DO 09/05/18 ILDA ROJAS DO September 05, 2018 19:55
[2018-09-05] MEDS ORDERED: HYDROcodone/APAP 5 MG/325 MG (LORTAB) TAB PO ONE (20:00)
--- NOTE | 2018-09-05 20:51 | Diagnostic Imaging Report ---
CLINICAL INDICATION: Patient working in garden today and is having mid back pain. EXAM: X-ray of the lumbar spine, 3 views. COMPARISON: MRI of the lumbar spine without contrast dated 04/16/2011. FINDINGS: There is no interval acute lumbar spine fracture or dislocation. Again seen straightening of the lumbar spine posture with slight progression of kyphosis of the thoracolumbar spine region. There is progression of loss of intervertebral disc height at the L5-S1 level. There is slight increased spurs involving the lumbar spine. IMPRESSION: 1.: There is no acute lumbar spine fracture or dislocation. 2: There is progression of lumbar spine degenerative disease. Dictated by: Dictated on workstation # [id number]
--- NOTE | 2018-09-05 20:57 | Diagnostic Imaging Report ---
CLINICAL INDICATION: Patient with mid back pain after working in garden today. EXAM: X-ray of the thoracic spine, 4 views. COMPARISON: None. FINDINGS: Of note, the upper thoracic spine is obscured by overlapping anatomical structures on lateral view. Thoracic spine shows no acute fracture or dislocation. There are small spurs involving the thoracic spine. IMPRESSION: Mild thoracic spine degenerative disease. Dictated by: Dictated on workstation # [id number]
[2018-09-05] MEDS ORDERED: HYDR-4226 PO (21:13)
[2018-09-05 21:18] VITALS: BP 137/93
== END 2018-09-05 21:21 | disposition home or self-care (01) ==
LOC: EDUNIT# 19:31 → ER FS 19:33
DX: M47.816 Spondylosis without myelopathy or radiculopathy, lumbar region (principal); G89.29 Other chronic pain; J44.9 Chronic obstructive pulmonary disease, unspecified; Z88.8 Allergy status to other drugs, medicaments and biological substances; Z79.52 Long term (current) use of systemic steroids; Z77.22 Contact with and (suspected) exposure to environmental tobacco smoke (acute) (chronic)
CPT/HCPCS: 72070; 72100

== ENCOUNTER → 2018-10-25 | Outpatient (CLI) | payer SELFPAY ==
[~2018-10-25] MED LIST changes: +HYDR-4226 PO
--- NOTE | 2018-10-25 14:41 | Diagnostic Imaging Report ---
PROCEDURE: MRI lumbar spine. TECHNIQUE: Multiplanar, multisequence MRI of the lumbar spine was performed without contrast. INDICATION: Low back pain, bilateral hip pressure, difficulty with walking. No known discrete spinal injury. COMPARISON: Study compared with MRI lumbar dated 04/16/2011 and correlated with more recent plain films of September 05, 2018. FINDINGS: Lower thoracic cord, conus, and nerves of the cauda equina are unremarkable. No intrathecal abnormality. No acute epidural disease. No paravertebral mass, hemorrhage, or fluid collection. A T2 hyperintense right renal cortical nodule is presumed cystic outside the [id number] on the prior. There is osteophyte disc material predominately directed anteriorly throughout the lumbar spine showing an overall mild generalized progression from prior. There was however no substantial encroachment upon the lumbar spinal canal at any vertebral body or disc space level. New right paramedian broad-based disc protrusion at L3-L4 does however result in a moderate degree of right-sided foraminal stenosis that is new. Diffuse osteophyte disc material at the L5-S1 level results in [id number] biforaminal stenosis also increased. IMPRESSION: 1. Generalized progressive spondylosis without substantial canal stenosis. 2. Right paramedian broad-based disc protrusion at L3-L4 with resultant right foraminal stenosis, moderate. 3. Progressive diffuse disc bulge and endplate osteophytes result in increased mild biforaminal stenosis at the L5-S1 level. 4. Normal alignment. No acute bony pathology. No intrathecal abnormality. Dictated by: Dictated on workstation # [id number]
== END ==
LOC: RAD 13:26
PROVIDERS: ATTEND Nurse Practitioner Community Health
DX: M47.816 Spondylosis without myelopathy or radiculopathy, lumbar region (principal); M51.26 Other intervertebral disc displacement, lumbar region; M48.07 Spinal stenosis, lumbosacral region
CPT/HCPCS: 72148

== ENCOUNTER 2018-11-02 16:13 | Emergency (ER) | payer SELFPAY | END 2018-11-02 16:54 | disposition home or self-care (01) | LOC: ER FS 16:13 ==

== ENCOUNTER 2019-03-13 16:21 | Emergency (ER) | payer SELFPAY ==
[~2019-03-13] VITALS: Ht 175 cm; Wt 100.2 kg
[~2019-03-13 16:21] MED LIST changes: +METH4TAB PO; +TR1O15 TP
[2019-03-13] MEDS ORDERED: AMOX500C2 PO (16:37)
--- NOTE | 2019-03-13 16:38 | ED EENT ---
History of Present Illness General Chief Complaint: Dental Problems/Pain Stated Complaint: MOUTH PAIN Source: patient Exam Limitations: no limitations History of Present Illness Date Seen by Provider: Mar 13, 2019 Time Seen by Provider: 16:29 Initial Comments 48-year-old male presents with some swelling in his gums. Patient has a broken tooth and noticed that right above the broken tooth and has gone he's having some swelling and a white spot. He has some mild pain in the area. Reports he broke his tooth quite a while ago and has been "turning black" patient has no fevers chills facial swelling or any other systemic complaints. Allergies and Home Medications Allergies Coded Allergies: Haloperidol Lactate (Verified Allergy, Unknown, 09/05/18) haloperidol (Verified Allergy, Unknown, 09/05/18) Home Medications Azithromycin 250 Mg Tablet, 250 MG PO DAILY Prescribed by: CLEO OLIVER on 10/30/16 001 Benzonatate 200 Mg Capsule, 200 MG PO TID Prescribed by: CLEO OLIVER on 10/30/16 001 Guaifenesin/Codeine Phosphate 118 Ml Liquid, 118 ML PO Q6H PRN for COUGH Prescribed by: ROSIO VENTURA on 06/21/18 1058 Hydrocodone/Acetaminophen 1 Each Tablet, 1 TAB PO Q6H PRN for PAIN-MODERATE Prescribed by: ILDA ROJAS on 09/05/182112 Levofloxacin 750 Mg Tablet, 750 MG PO DAILY Start on 06/22/18 (was given a dose in the ER) Prescribed by: ROSIO VENTURA on 06/21/18 1059 Methylprednisolone 4 Mg Tab.ds.pk, 4 MG PO UD PER DOSE PACK INSTRUCTIONS Prescribed by: ANNABEL REEVES on 11/02/18 1636 Prednisone 20 Mg Tab, 20 MG PO DAILY Prescribed by: CLEO OLIVER on 10/30/16 001 Prednisone 20 Mg Tab, 40 MG PO DAILY Prescribed by: ALEJANDRA MENDOZA on 08/08/17 1708 Prednisone 20 Mg Tab, 40 MG PO DAILY Prescribed by: ROSIO VENTURA on 06/21/18 1058 Triamcinolone Acet 15 Gm Oint, 1 APPLIC TP BID Prescribed by: ANNABEL REEVES on 11/02/18 163 Patient Home Medication List Home Medication List Reviewed: Yes Review of Systems Review of Systems Constitutional: No chills, No fever Eyes: No Symptoms Reported Ears: No Symptoms Reported Nose: no symptoms reported Mouth: see HPI Throat: no symptoms reported Respiratory: No cough, No short of breath Cardiovascular: No chest pain Gastrointestinal: No nausea, No vomiting Skin: no symptoms reported Neurological: No Symptoms Reported Past Msbxyco-Frvote-Ewwipf Hx Past Med/Social Hx: Reviewed Nursing Past Med/Soc Hx Patient Social History Type Used: Cigarettes, Electronic/Vapor 2nd Hand Smoke Exposure: Yes Recent Foreign Travel: No Contact w/Someone Who Travel: No Recent Hopitalizations: No Seasonal Allergies Seasonal Allergies: No Past Medical History Surgeries: No Orthopedic Respiratory: Yes COPD Cardiac: No Neurological: No Genitourinary: No Gastrointestinal: No Musculoskeletal: Yes (Back pain) Endocrine: No HEENT: No Cancer: No Psychosocial: No Integumentary: No Blood Disorders: No Physical Exam Height, Weight, BMI Height: 5'9.00" Weight: 200lbs. oz. 90.167772zs; BMI Method:Stated General Appearance: WD/WN, no apparent distress Mouth/Throat: other (small abscess on the right upper gum with severe dental caries and fractured teeth) Neck: full range of motion, supple Cardiovascular: normal peripheral pulses, regular rate, rhythm, no edema Respiratory: chest non-tender, lungs clear Gastrointestinal: non tender, soft Neurologic/Psychiatric: normal mood/affect, oriented x 3 Skin: normal color, warm/dry Departure Impression Primary Impression: Dental abscess Disposition: 01 HOME, SELF-CARE Condition: Stable Departure-Patient Inst. Referrals: [facility] [place]) Primary Care Physician ANNABEL PERSAUD (Family) Primary Care Physician Patient Instructions: Tooth Abscess (DC), Dental Pain, Tooth Decay, Adult (DC) Add. Discharge Instructions: Follow-up with the dentist as soon as you are able All discharge instructions reviewed with patient and/or family. Voiced understanding. Scripts Amoxicillin (Amoxicillin) 500 Mg Capsule 500 MG PO TID for 7 Days, #21 CAP 0 Refills Prov: JENI HWANG DO 03/13/19 JENI HWANG DO Mar 13, 2019 16:37 POS
[2019-03-13 16:41] VITALS: BP 123/87
== END 2019-03-13 16:42 | disposition home or self-care (01) ==
LOC: EDUNIT# 16:21 → ER FS 16:23
DX: K04.7 Periapical abscess without sinus (principal); J44.9 Chronic obstructive pulmonary disease, unspecified; Z88.8 Allergy status to other drugs, medicaments and biological substances; Z79.52 Long term (current) use of systemic steroids; Z77.22 Contact with and (suspected) exposure to environmental tobacco smoke (acute) (chronic)
CPT/HCPCS: 99282

== ENCOUNTER 2019-05-01 19:03 | Emergency (ER) | payer SELFPAY ==
[~2019-05-01] VITALS: Ht 175.2 cm; Wt 102.4 kg
[~2019-05-01 19:03] MED LIST changes: +AMOX500C2 PO
[2019-05-01] MEDS ORDERED: AUGMENTIN 875 MG TAB (AMOXICILLIN/CLAVULANATE) ONE (19:59)
[2019-05-01] MEDS ORDERED: HYDROcodone/APAP 5 MG/325 MG (LORTAB) TAB PO ONE (20:00)
[2019-05-01] MEDS ORDERED: IBUPROFEN 800 MG (MOTRIN) TAB PO ONE (20:00)
--- NOTE | 2019-05-01 20:07 | ED EENT ---
History of Present Illness General Chief Complaint: Dental Problems/Pain Stated Complaint: BROKEN TOOTH/SWELLING Nursing Triage Note: PT. REPORTED HIS TOP TOOTH ON THE RIGHT SIDE HAS HURTING FOR A COUPLE OF DAYS. HIS CHEEK IS SLIGHTLY SWOLLEN. PT. BROKE THE TOOTH A COUPLE OF DAYS AGO AND WHEN EATING IT PUSHS BACK UP AND HURTS. PT. STATED HE HAS BEEN LOOKING FOR A DENTIST TO PULL HIS TOOTH. History of Present Illness Date Seen by Provider: May 01, 2019 Time Seen by Provider: 19:35 Initial Comments The patient is a 48-year-old male with a history of COPD and tobacco abuse who presents with concern for dental discomfort in association with a right maxillary incisor which is fractured and necrotic. Symptoms have been present for a few days since the tooth broke. Very mild overlying localized right nasolabial facial swelling but no fevers, nausea or vomiting, trismus, pain or swelling to the floor of the mouth or elevation of the tongue, trouble with secretions, change in voice, difficulty breathing. Patient has been taking ibuprofen without relief of symptoms. He has not been able to get in with a dentist yet. Allergies and Home Medications Allergies Coded Allergies: Haloperidol Lactate (Verified Allergy, Unknown, 09/05/18) haloperidol (Verified Allergy, Unknown, 09/05/18) Home Medications Amoxicillin 500 Mg Capsule, 500 MG PO TID Prescribed by: JENI HWANG on 03/13/19 1637 Azithromycin 250 Mg Tablet, 250 MG PO DAILY Prescribed by: CLEO OLIVER on 10/30/16 0016 Benzonatate 200 Mg Capsule, 200 MG PO TID Prescribed by: CLEO OLIVER on 10/30/16 0016 Guaifenesin/Codeine Phosphate 118 Ml Liquid, 118 ML PO Q6H PRN for COUGH Prescribed by: ROSIO VENTURA on 06/21/18 1058 Hydrocodone/Acetaminophen 1 Each Tablet, 1 TAB PO Q6H PRN for PAIN-MODERATE Prescribed by: ILDA ROJAS on 09/05/18 211 Levofloxacin 750 Mg Tablet, 750 MG PO DAILY Start on 06/22/18 (was given a dose in the ER) Prescribed by: ROSIO VENTURA on 06/21/18 1059 Methylprednisolone 4 Mg Tab.ds.pk, 4 MG PO UD PER DOSE PACK INSTRUCTIONS Prescribed by: ANNABEL REEVES on 11/02/18 1636 Prednisone 20 Mg Tab, 20 MG PO DAILY Prescribed by: CLEO OLIVER on 10/30/16 0016 Prednisone 20 Mg Tab, 40 MG PO DAILY Prescribed by: ALEJANDRA MENDOZA on 08/08/17 1708 Prednisone 20 Mg Tab, 40 MG PO DAILY Prescribed by: ROSIO VENTURA on 06/21/18 1058 Triamcinolone Acet 15 Gm Oint, 1 APPLIC TP BID Prescribed by: ANNABEL REEVES on 11/02/18 1636 Patient Home Medication List Home Medication List Reviewed: Yes Review of Systems Review of Systems Constitutional: see HPI All Other Systems Reviewed Negative Unless Noted: Yes Past Kzxanjj-Sqfagn-Lelyhy Hx Past Med/Social Hx: Reviewed Nursing Past Med/Soc Hx Patient Social History Type Used: Cigarettes, Electronic/Vapor 2nd Hand Smoke Exposure: Yes Recent Foreign Travel: No Contact w/Someone Who Travel: No Recent Infectious Disease Expo: No Recent Hopitalizations: No Physical Abuse: No Sexual Abuse: No Mistreated: No Fear: No Seasonal Allergies Seasonal Allergies: No Past Medical History Surgeries: Yes Orthopedic Respiratory: Yes COPD Cardiac: No Neurological: No Genitourinary: No Gastrointestinal: No Musculoskeletal: Yes (Back pain) Endocrine: No HEENT: No Cancer: No Psychosocial: No Integumentary: No Blood Disorders: No Family Medical History Reviewed Nursing Family Hx Physical Exam Vital Signs Vital Signs - First Documented 05/01/19 19:26 Temp 36.5 Pulse 87 Resp 18 B/P (MAP) 126/92 (103) Pulse Ox 94 O2 Delivery Room Air Height, Weight, BMI Height: 5'9.00" Weight: 200lbs. oz. 90.975903xo; 33.00 BMI Method:Stated General Appearance: no apparent distress This is an older male appearing nontoxic and in no acute distress. Head is normocephalic and atraumatic. Neck is supple and nontender. Oropharynx is moist. There is a fractured, necrotic right maxillary incisor with very mild overlying localized nasolabial facial swelling without any gingival fluctuance suggestive of periapical abscess. No trismus. No change in voice. No trouble with secretions. No other acute intraoral or posterior oropharyngeal abnormality noted. Lungs are clear to auscultation at all stations. There is a normal S1 and S2 without rubs or gallops and capillary refill is appropriate, less than 2 seconds globally. Abdomen is soft, nontender and nondistended. Skin is warm and dry without cyanosis, clubbing or edema. Psychiatrically, the patient demonstrates appropriate mood and affect and is alert. Progress/Results/Core Measures Results/Orders My Orders Orders - DEANDRE LEE MD Hydrocodone/Apap 5/325 Tablet (Lortab 5 (05/01/19 20:00) Amoxicillin/Clavulanate Tablet (Augmenti (05/02/19 07:00) Ibuprofen Tablet (Motrin Tablet) (05/01/19 20:00) Vital Signs/I&O 05/01/19 19:26 Temp 36.5 Pulse 87 Resp 18 B/P (MAP) 126/92 (103) Pulse Ox 94 O2 Delivery Room Air Blood Pressure Mean: 103 Progress Progress Note : Time: 20:03 Progress Note No red flags for dental pain today. We'll start on Augmentin and given some medication for breakthrough discomfort and discharge home with Augmentin course and medication for breakthrough discomfort and refer the patient to the [facility] sliding scale dental clinic in [place] for follow-up. He is to call tomorrow. He understands that if he feels worse is that of better or develops other new symptoms of concern that he should return to the emergency department immediately for reevaluation. All questions are answered. Departure Impression Primary Impression: Dental decay Disposition: 01 HOME, SELF-CARE Condition: Improved Departure-Patient Inst. Referrals: [facility] [place] (PCP) Primary Care Physician ANNABEL PERSAUD (Family) Primary Care Physician Patient Instructions: Dental Pain Add. Discharge Instructions: As discussed, please call TOMORROW during business hours to contact the [facility] about walk-in low cost dental care. In the meantime, take the antibiotic as prescribed and use the medication for dis comfort. Return to the emergency department right away with worsening symptoms or other new concerns. Scripts Hydrocodone/Acetaminophen ([place] 5-325 Tablet) 1 Each Tablet 1 TAB PO Q4-6HR for Pain MDD 10 TABS for 7 Days, #9 TAB Prov: DEANDRE LEE MD 05/01/19 Amoxicillin/Potassium Clav (Augmentin 875-125 Tablet) 1 Each Tablet 1 EACH PO BID for 10 Days, #20 TAB 0 Refills Prov: DEANDRE LEE MD 05/01/19 Ibuprofen (Ibuprofen) 800 Mg Tablet 800 MG PO Q8H PRN for PAIN, #30 TAB 0 Refills Prov: DEANDRE LEE MD 05/01/19 DEANDRE LEE MD May 01, 2019 20:07
[2019-05-01] MEDS ORDERED: AMOX-358 PO (20:08)
[2019-05-01] MEDS ORDERED: HYDR-4226 PO (20:08)
[2019-05-01] MEDS ORDERED: IBUP-1780 PO (20:08)
[2019-05-01 20:18] VITALS: BP 126/92
[2019-05-02] MEDS ORDERED: AUGMENTIN 875 MG TAB (AMOXICILLIN/CLAVULANATE) PO ONE (07:00)
== END 2019-05-01 20:25 | disposition home or self-care (01) ==
LOC: EDUNIT# 19:03 → ER FS 19:04
DX: K02.9 Dental caries, unspecified (principal); J44.9 Chronic obstructive pulmonary disease, unspecified; Z88.8 Allergy status to other drugs, medicaments and biological substances; Z79.52 Long term (current) use of systemic steroids; Z77.22 Contact with and (suspected) exposure to environmental tobacco smoke (acute) (chronic)
CPT/HCPCS: 99283

== ENCOUNTER → 2019-06-12 | Outpatient (CLI) | payer SELFPAY ==
[~2019-06-12] MED LIST changes: +AMOX-358 PO; +IBUP-1780 PO
== END ==
LOC: RAD 13:52
PROVIDERS: ATTEND Family Medicine
DX: R56.9 Unspecified convulsions (principal)

== ENCOUNTER 2019-07-21 04:30 | Emergency (ER) | payer SELFPAY ==
[~2019-07-21] VITALS: Ht 175.3 cm; Wt 90.7 kg
--- NOTE | 2019-07-21 04:59 | ED GI ---
General Chief Complaint: Abdominal/GI Problems Stated Complaint: ABD PAIN Nursing Triage Note: PT AMBULATE TO ROOM FS06 WITH ABD PAIN STARTING AT 2100 YESTERDAY. PT REPORTS ABD PAIN AND BURNING AFTER EATING. Sepsis Screen: No Definite Risk History of Present Illness Date Seen by Provider: Jul 21, 2019 Time Seen by Provider: 04:50 Initial Comments 48-year-old male presents with abdominal pain, nausea vomiting. Patient reports he started developing some abdominal pain around 8 or 9 yesterday eveningand that abdomen felt hard. He initially thought he was constipated. Then he started vomiting. Now he feels like he is having a burning in his abdomen along with some continued pain. Patient does have a prior history of hernia surgeries. He reports a chronic cough along with some fevers and chills. Allergies and Home Medications Allergies Coded Allergies: Haloperidol Lactate (Verified Allergy, Unknown, 09/05/18) haloperidol (Verified Allergy, Unknown, 09/05/18) Home Medications Amoxicillin 500 Mg Capsule, 500 MG PO TID Prescribed by: JENI HWANG on 03/13/19 1637 Amoxicillin/Potassium Clav 1 Each Tablet, 1 EACH PO BID Prescribed by: DEANDRE LEE on 05/01/192007 Azithromycin 250 Mg Tablet, 250 MG PO DAILY Prescribed by: CLEO OLIVER on 10/30/1615 Benzonatate 200 Mg Capsule, 200 MG PO TID Prescribed by: CLEO OLIVER on 10/30/16 001 Guaifenesin/Codeine Phosphate 118 Ml Liquid, 118 ML PO Q6H PRN for COUGH Prescribed by: ROSIO VENTURA on 06/21/18 1058 Hydrocodone/Acetaminophen 1 Each Tablet, 1 TAB PO Q6H PRN for PAIN-MODERATE Prescribed by: ILDA ROJAS on 09/05/18 2113 Hydrocodone/Acetaminophen 1 Each Tablet, 1 TAB PO Q4-6HR Prescribed by: DEANDRE LEE on 05/01/192007 Ibuprofen 800 Mg Tablet, 800 MG PO Q8H PRN for PAIN Prescribed by: DEANDRE LEE on 05/01/192007 Levofloxacin 750 Mg Tablet, 750 MG PO DAILY Start on 06/22/18 (was given a dose in the ER) Prescribed by: ROSIO VENTURA on 06/21/18 1059 Methylprednisolone 4 Mg Tab.ds.pk, 4 MG PO UD PER DOSE PACK INSTRUCTIONS Prescribed by: ANNABEL REEVES on 11/02/18 1636 Prednisone 20 Mg Tab, 20 MG PO DAILY Prescribed by: CLEO OLIVER on 10/30/16 0016 Prednisone 20 Mg Tab, 40 MG PO DAILY Prescribed by: ALEJANDRA MENDOZA on 08/08/17 1708 Prednisone 20 Mg Tab, 40 MG PO DAILY Prescribed by: ROSIO VENTURA on 06/21/18 1058 Triamcinolone Acet 15 Gm Oint, 1 APPLIC TP BID Prescribed by: ANNABEL REEVES on 11/02/18 1636 Patient Home Medication List Home Medication List Reviewed: Yes Review of Systems Review of Systems Constitutional: chills, fever Respiratory: Cough, Shortness of Air Cardiovascular: Chest Pain Gastrointestinal: Abdominal Pain, Constipated, Nausea, Vomiting Genitourinary: No Symptoms Reported Musculoskeletal: no symptoms reported Skin: no symptoms reported Past Fobebsm-Xhczig-Aqlmoe Hx Past Med/Social Hx: Reviewed Nursing Past Med/Soc Hx Patient Social History Alcohol Use: Denies Use Recreational Drug Use: No Smoking Status: Current Everyday Smoker Type Used: Cigarettes, Electronic/Vapor 2nd Hand Smoke Exposure: Yes Recent Foreign Travel: No Contact w/Someone Who Travel: No Recent Infectious Disease Expo: No Recent Hopitalizations: No Physical Abuse: No Sexual Abuse: No Mistreated: No Fear: No Seasonal Allergies Seasonal Allergies: No Past Medical History Surgeries: Yes Orthopedic Respiratory: Yes COPD Cardiac: No Neurological: No Genitourinary: No Gastrointestinal: No Musculoskeletal: Yes (Back pain) Endocrine: No HEENT: No Cancer: No Psychosocial: No Integumentary: No Blood Disorders: No Physical Exam Vital Signs Vital Signs - First Documented 07/21/19 04:38 Temp 36.5 Pulse 73 Resp 19 B/P (MAP) 136/87 (103) O2 Delivery Room Air Capillary Refill : Less Than 3 Seconds Height/Weight/BMI Height: 5'9.00" Weight: 200lbs. oz. 90.828593rj; 29.00 BMI Method:Stated General Appearance: WD/WN, no apparent distress Respiratory: lungs clear, normal breath sounds Gastrointestinal: tenderness (mid and lower abdomen), other (firm not rigid ) Back: no CVA tenderness Neurologic/Psychiatric: church warden II-XII nml as tested, oriented x 3 Skin: normal color, warm/dry Progress/Results/Core Measures Results/Orders Lab Results Laboratory Tests Test 4/3/20 04:47 Range/Units White Blood Count 18.8 H 4.3-11.0 10^3/uL Red Blood Count 4.79 4.35-5.85 10^6/uL Hemoglobin 14.9 13.3-17.7 G/DL Hematocrit 43 40-54 % Mean Corpuscular Volume 89 80-99 FL Mean Corpuscular Hemoglobin 31 25-34 PG Mean Corpuscular Hemoglobin Concent 35 32-36 G/DL Red Cell Distribution Width 12.7 10.0-14.5 % Platelet Count 276 130-400 10^3/uL Mean Platelet Volume 9.6 7.4-10.4 FL Neutrophils (%) (Auto) 84 H 42-75 % Lymphocytes (%) (Auto) 11 L 12-44 % Monocytes (%) (Auto) 4 0-12 % Eosinophils (%) (Auto) 0 0-10 % Basophils (%) (Auto) 0 0-10 % Neutrophils # (Auto) 15.8 H 1.8-7.8 X 10^3 Lymphocytes # (Auto) 2.0 1.0-4.0 X 10^3 Monocytes # (Auto) 0.8 0.0-1.0 X 10^3 Eosinophils # (Auto) 0.1 0.0-0.3 10^3/uL Basophils # (Auto) 0.0 0.0-0.1 10^3/uL Neutrophils % (Manual) 82 % Lymphocytes % (Manual) 7 % Monocytes % (Manual) 3 % Eosinophils % (Manual) 1 % Reactive Lymphocytes 7 % Sodium Level 140 135-145 MMOL/L Potassium Level 4.2 3.6-5.0 MMOL/L Chloride Level 101 98-107 MMOL/L Carbon Dioxide Level 24 21-32 MMOL/L Anion Gap 15 H 5-14 MMOL/L Blood Urea Nitrogen 19 H 7-18 MG/DL Creatinine 0.87 0.60-1.30 MG/DL Estimat Glomerular Filtration Rate > 60 BUN/Creatinine Ratio 22 Glucose Level 141 H 70-105 MG/DL Calcium Level 9.0 8.5-10.1 MG/DL Corrected Calcium 8.6 8.5-10.1 MG/DL Total Bilirubin 0.2 0.1-1.0 MG/DL Aspartate Amino Transf (AST/SGOT) 20 5-34 U/L Alanine Aminotransferase (ALT/SGPT) 17 0-55 U/L Alkaline Phosphatase 52 40-136 U/L C-Reactive Protein 1.14 H <0.50 MG/DL Total Protein 7.6 6.4-8.2 GM/DL Albumin 4.5 3.2-4.5 GM/DL Lipase 21 8-78 U/L My Orders Orders - HWANG,JENI L DO Cbc With Automated Diff (07/21/19 05:00) Comprehensive Metabolic Panel (07/21/19 05:00) Lactic Acid Analyzer (07/21/19 05:00) Lipase (07/21/19 05:00) Ua Culture If Indicated (07/21/19 05:00) Crp Fs (07/21/19 05:00) Ondansetron Injection (Zofran Injectio (07/21/19 05:00) Ns Iv 1000 Ml (Sodium Chloride 0.9%) (07/21/19 05:00) Famotidine Injection (Pepcid Injection) (07/21/19 05:00) Ed Iv/Invasive Line Start (07/21/19 05:00) Acute Abd Series (07/21/19 05:00) Ketorolac Injection (Toradol Injection) (07/21/19 05:00) Manual Differential (07/21/19 04:47) Lidocaine 2% Viscous 15 Ml (Xylocaine Vi (07/21/19 06:00) Antacid Suspension (Mylanta Suspension (07/21/19 06:00) Medications Given in ED Current Medications Medications Dose Ordered Sig/Everardo Route Start Time Stop Time Status Last Admin Dose Admin Ondansetron HCl 4 mg ONCE ONCE IVP 07/21/19 05:00 07/21/19 05:03 DC 07/21/19 05:10 4 MG Vital Signs/I&O 07/21/19 04:38 Temp 36.5 Pulse 73 Resp 19 B/P (MAP) 136/87 (103) O2 Delivery Room Air Blood Pressure Mean: 103 Progress Progress Note : Time: 05:47 Departure Impression Primary Impression: Gastritis Qualified Codes: K29.70 - Gastritis, unspecified, without bleeding Disposition: 01 HOME, SELF-CARE Condition: Stable Departure-Patient Inst. Referrals: [facility] (PCP) Primary Care Physician HUNG,ANNABEL T SEWING DEMONSTRATOR (Family) Primary Care Physician Patient Instructions: Gastritis Add. Discharge Instructions: start omeprozale twice daily Emergency department focuses on treating and ruling out life-threatening diseases. Whenever possible, a diagnosis is given. However, most patients are given an impression based on their history, physical exam, and workup during your brief time in the ER. Information about probable diagnosis and other educational material has been provided. Please take the time to read and understand this information. It is very important that you follow up with a physician as discussed during the visit today. Failure to adhere to your follow-up instructions may lead to severe disability, injury, or so please make sure to keep your appointments or obtain one as requested. Please keep in mind the emergency department is not designed to your primary care or "family doctor" and nonurgent issues are best evaluated by an outpatient physician All discharge instructions reviewed with patient and/or family. Voiced un derstanding. JENI HWANG DO Jul 21, 2019 04:59
[2019-07-21] MEDS ORDERED: NS IV 1000 ML 1,000 ML IV STA (05:00)
[2019-07-21] MEDS ORDERED: KETOROLAC 30 MG/ML VIAL IVP STA (05:00)
[2019-07-21] MEDS ORDERED: ONDANSETRON 4 MG/2 ML (SDV) Z0FRAN IVP ONE (05:00)
[2019-07-21] MEDS ORDERED: FAMOTIDINE 20MG/2ML IV (PEPCID) IV STA (05:00)
[2019-07-21 05:24] LABS: BASOPHILS % (AUTO) 0 % (0-10); EOSINOPHILS # (AUTO) 0.1 10^3/uL (0.0-0.3); EOSINOPHILS % (AUTO) 0 % (0-10); HEMATOCRIT 43 % (40-54); HEMOGLOBIN 14.9 G/DL (13.3-17.7); LYMPHOCYTES % (AUTO) 11 % (12-44); MEAN CORPUSCULAR HEMOGLOBIN 31 PG (25-34); MEAN CORPUSCULAR HGB CONC 35 G/DL (32-36); MEAN CORPUSCULAR VOLUME 89 FL (80-99); MEAN PLATELET VOLUME 9.6 FL (7.4-10.4); MONOCYTES # (AUTO) 0.8 X 10^3 (0.0-1.0); MONOCYTES % (AUTO) 4 % (0-12); NEUTROPHILS # (AUTO) 15.8 X 10^3 (1.8-7.8); NEUTROPHILS % (AUTO) 84 % (42-75); PLATELET COUNT 276 10^3/uL (130-400); RED CELL DISTRIBUTION WIDTH 12.7 % (10.0-14.5); WHITE BLOOD COUNT 18.8 10^3/uL (4.3-11.0)
[2019-07-21 05:32] LABS: EOSINOPHILS % (MANUAL) 1 %; LYMPHOCYTES % (MANUAL) 7 %; MONOCYTES % (MANUAL) 3 %; NEUTROPHILS % (MANUAL) 82 %; REACTIVE LYMPHOCYTES 7 %
[2019-07-21 05:39] LABS: ALANINE AMINOTRANSFERASE 17 U/L (0-55); ALBUMIN 4.5 GM/DL (3.2-4.5); ALKALINE PHOSPHATASE 52 U/L (40-136); BILIRUBIN,TOTAL 0.2 MG/DL (0.1-1.0); BUN/CREATININE RATIO 22; CARBON DIOXIDE 24 MMOL/L (21-32); CHLORIDE 101 MMOL/L (98-107); CREATININE SERUM 0.87 MG/DL (0.60-1.30); GFR ESTIMATED > 60; GLUCOSE 141 MG/DL (70-105); LIPASE 21 U/L (8-78); POTASSIUM 4.2 MMOL/L (3.6-5.0); SODIUM 140 MMOL/L (135-145); TOTAL PROTEIN 7.6 GM/DL (6.4-8.2)
[2019-07-21] MEDS ORDERED: ANTACID SUSP 30 ML UDC (MYLANTA) PO ONE (06:00)
[2019-07-21] MEDS ORDERED: LIDOCAINE 2% VISCOUS 15 ML UDC PO ONE (06:00)
[2019-07-21 06:08] VITALS: BP 131/72
--- NOTE | 2019-07-21 07:25 | Diagnostic Imaging Report ---
INDICATION: Abdominal pain. COMPARISON: 06/21/2018 FINDINGS: Supine and upright views of the abdomen show a nondistended bowel gas pattern. No abnormal air fluid levels or free intraperitoneal air is seen. No abnormal extraosseous calcifications are seen. Bony and soft tissue structures are within normal limits. No organomegaly is identified. Accompanying upright chest shows normal heart size and pulmonary vascularity. The lungs are well aerated and clear. The mediastinum is normal in appearance. IMPRESSION: 1. No bowel obstruction or free air. 2. Normal chest. No pneumonia or pulmonary edema. Dictated by: Dictated on workstation # [id number]
[2019-07-21] MEDS ORDERED: BUDE10.2 IH (17:41)
[2019-07-21] MEDS ORDERED: ALBU2.5V4 INH (17:41)
[2019-07-24] MEDS ORDERED: AMOX-358 PO (10:46)
[2019-07-24] MEDS ORDERED: HYDR-83 PO (10:57)
== END 2019-07-21 06:08 | disposition home or self-care (01) ==
LOC: EDUNIT# 04:30 → ER FS 04:33
DX: K29.70 Gastritis, unspecified, without bleeding (principal); F17.210 Nicotine dependence, cigarettes, uncomplicated; J44.9 Chronic obstructive pulmonary disease, unspecified; Z79.899 Other long term (current) drug therapy
CPT/HCPCS: 36415; 74022; 80053; 83690; 85007; 85027; 86141

== ENCOUNTER 2020-06-27 21:59 | Emergency (ER) | payer SELFPAY ==
[~2020-06-27] VITALS: Ht 175.2 cm; Wt 108.2 kg
[~2020-06-27 21:59] MED LIST changes: +ACHD5005 PO; +ALBU2.5V4 INH; +BUDE10.2 IH
[2020-06-27 22:03] VITALS: BP 142/93
[2020-06-27] MEDS ORDERED: PENI500T PO (22:16)
--- NOTE | 2020-06-27 22:17 | ED EENT ---
History of Present Illness General Chief Complaint: Dental Problems/Pain Stated Complaint: MOUTH PAIN Nursing Triage Note: Patient states that a tooth on his upper right side is infected. Patient states that this started about 2 weeks ago. Patient has significant dental caries. Source: patient History of Present Illness Date Seen by Provider: Jun 27, 2020 Time Seen by Provider: 22:10 Initial Comments Presents with general dental pain, chronic condition and has not seen a dentist recently. No fever, no swelling, no drainage. Asking for pain medicine on arrival. Allergies and Home Medications Allergies Coded Allergies: Haloperidol Lactate (Verified Allergy, Unknown, 09/05/18) haloperidol (Verified Allergy, Unknown, 09/05/18) Home Medications Amoxicillin/Potassium Clav 1 Each Tablet, 1 EACH PO BID Prescribed by: HIEU WALTERS on 07/24/19 1046 Budesonide/Formoterol Fumarate 10.2 Gm Hfa.aer.ad, 2 PUFF IH BID, (Reported) Hydrocodone/Acetaminophen 1 Each Tablet, 1 TAB PO Q4H PRN for PAIN-MODERATE (5- 7) Prescribed by: HIEU WALTERS on 07/24/19 1057 Penicillin V Potassium 500 Mg Tablet, 500 MG PO TID Prescribed by: KURTIS ORTIZ on 06/27/20 2216 Patient Home Medication List Home Medication List Reviewed: Yes Review of Systems Review of Systems Constitutional: no symptoms reported Eyes: No Symptoms Reported Ears: No Symptoms Reported Mouth: see HPI; denies loose teeth; pain; denies swelling, denies purulent discharge Throat: no symptoms reported; denies pain, denies swelling Skin: No change in color, No rash Past Wdtrxjd-Cwwvzi-Llfmdw Hx Past Med/Social Hx: Reviewed Nursing Past Med/Soc Hx Patient Social History Alcohol Use: Denies Use Drug of Choice: THC Smoking Status: Current Everyday Smoker Type Used: Cigarettes 2nd Hand Smoke Exposure: Yes Recent Infectious Disease Expo: No Recent Hopitalizations: No Seasonal Allergies Seasonal Allergies: No Past Medical History Surgeries: Yes (RT WRIST ; PERIUMBILICAL HERNIA REPAIR WITH MESH, PLASTIC SURGERY HEAD) Abdominal, Orthopedic Respiratory: Yes COPD Currently Using CPAP: No Currently Using BIPAP: No Cardiac: No Neurological: Yes (SEIZURES--UNKNOWN CAUSE, NO MEDICATIONS) Seizure Disorder Genitourinary: No Gastrointestinal: Yes Abdominal Hernia Musculoskeletal: Yes Chronic Back Pain Endocrine: No HEENT: Yes (POOR DENTITION) Cancer: No Psychosocial: No Integumentary: No Blood Disorders: No Family Medical History No Pertinent Family Hx Physical Exam Vital Signs Vital Signs - First Documented 06/27/20 22:03 Temp 35.8 Pulse 111 Resp 18 B/P (MAP) 142/93 (109) Pulse Ox 98 O2 Delivery Room Air Height, Weight, BMI Height: 5'9.00" Weight: 200lbs. oz. 90.514941od; 35.00 BMI Method:Stated General Appearance: WD/WN, no apparent distress Eyes: bilateral eye normal inspection, bilateral eye PERRL, bilateral eye EOMI Ears: bilateral ear auricle normal, bilateral ear canal normal, bilateral ear TM normal Nose: normal inspection; No sinus tenderness Mouth/Throat: pharynx normal; No mandibular swelling, No maxillary swelling, No pharynx swelling, No pharynx tenderness, No tongue swollen, No tonsillar exudate, No tonsillar swelling, No trismus, No uvula swelling, No voice changes; other (diffuse and chronic dental caries without any sign of acute infection, injury or abscess) Neck: non-tender, supple; No lymphadenopathy (R), No lymphadenopathy (L) Neurologic/Psychiatric: no motor/sensory deficits Skin: normal color, warm/dry Progress/Results/Core Measures Results/Orders Vital Signs/I&O 06/27/20 22:03 Temp 35.8 Pulse 111 Resp 18 B/P (MAP) 142/93 (109) Pulse Ox 98 O2 Delivery Room Air Blood Pressure Mean: 109 Departure Impression Primary Impression: Dental caries Disposition: 01 HOME, SELF-CARE Condition: Stable Departure-Patient Inst. Decision time for Depature: 22:16 Referrals: [facility] (PCP) Primary Care Physician SELF,HAROON ROMERO (Family) Primary Care Physician Patient Instructions: Tooth Decay, Adult (DC) Add. Discharge Instructions: Call your dentist to schedule definitive treatment for your chronic dental disease All discharge instructions reviewed with patient and/or family. Voiced understanding. Scripts Penicillin V Potassium (Penicillin V Potassium) 500 Mg Tablet 500 MG PO TID for 7 Days, #21 TAB Prov: KURTIS ORTIZ DO 06/27/20 KURTIS ORTIZ DO Jun 27, 2020 22:17
== END 2020-06-27 22:18 | disposition home or self-care (01) ==
LOC: EDUNIT# 21:59 → ER FS 22:01
DX: K02.9 Dental caries, unspecified (principal); J44.9 Chronic obstructive pulmonary disease, unspecified; F17.210 Nicotine dependence, cigarettes, uncomplicated; Z79.51 Long term (current) use of inhaled steroids; Z88.8 Allergy status to other drugs, medicaments and biological substances
CPT/HCPCS: 99282

== ENCOUNTER 2020-07-13 01:05 | Emergency (ER) | payer SELFPAY ==
[~2020-07-13] VITALS: Ht 175 cm; Wt 108.0 kg
[~2020-07-13 01:05] MED LIST changes: +PENI500T PO
[2020-07-13] MEDS ORDERED: ORPHENADRINE 60 MG/2 ML (NORFLEX) AMP (ED ONLY) IV ONE (02:45)
[2020-07-13] MEDS ORDERED: KETOROLAC 30 MG/ML VIAL IVP ONE (02:45)
[2020-07-13] MEDS ORDERED: BENZONATATE 100 MG (TESSALON) CAPSULE PO SCH (03:00)
[2020-07-13 03:13] LABS: BASOPHILS # (AUTO) 0.1 10^3/uL (0.0-0.1); BASOPHILS % (AUTO) 0 % (0-10); EOSINOPHILS # (AUTO) 0.4 10^3/uL (0.0-0.3); EOSINOPHILS % (AUTO) 3 % (0-10); HEMATOCRIT 46 % (40-54); HEMOGLOBIN 15.3 g/dL (13.3-17.7); LYMPHOCYTES % (AUTO) 35 % (12-44); MEAN CORPUSCULAR HEMOGLOBIN 31 pg (25-34); MEAN CORPUSCULAR HGB CONC 33 g/dL (32-36); MEAN CORPUSCULAR VOLUME 92 fL (80-99); MEAN PLATELET VOLUME 9.8 fL (9.0-12.2); MONOCYTES # (AUTO) 0.7 10^3/uL (0.0-1.0); MONOCYTES % (AUTO) 6 % (0-12); NEUTROPHILS # (AUTO) 6.1 10^3/uL (1.8-7.8); NEUTROPHILS % (AUTO) 54 % (42-75); PLATELET COUNT 287 10^3/uL (130-400); WHITE BLOOD COUNT 11.3 10^3/uL (4.3-11.0)
[2020-07-13 03:17] LABS: ALBUMIN 4.2 GM/DL (3.2-4.5); CHLORIDE 103 MMOL/L (98-107); POTASSIUM 3.8 MMOL/L (3.6-5.0); SODIUM 138 MMOL/L (135-145)
[2020-07-13 03:19] LABS: CALCIUM 9.4 MG/DL (8.5-10.1)
[2020-07-13 03:20] LABS: GLUCOSE 150 MG/DL (70-105); TOTAL PROTEIN 7.3 GM/DL (6.4-8.2)
[2020-07-13 03:21] LABS: CARBON DIOXIDE 22 MMOL/L (21-32)
[2020-07-13 03:22] LABS: BILIRUBIN,TOTAL 0.1 MG/DL (0.1-1.0)
[2020-07-13 03:23] LABS: ALKALINE PHOSPHATASE 54 U/L (40-136)
[2020-07-13 03:24] LABS: CREATININE SERUM 1.03 MG/DL (0.60-1.30); GFR ESTIMATED > 60
[2020-07-13 03:25] LABS: BUN/CREATININE RATIO 11
[2020-07-13 03:26] LABS: ALANINE AMINOTRANSFERASE 29 U/L (0-55)
--- NOTE | 2020-07-13 03:36 | ED Abdominal Pain ---
General Chief Complaint: Abdominal/GI Problems Stated Complaint: LEFT SIDE UPPER ABD PAIN Nursing Triage Note: LUQ PAIN UNDER THE RIBS. X1 WEEK. INCREASING PAIN TO A 10/10 OVER THE COURSE OF A WEEK. Sepsis Screen: No Definite Risk Source of Information: Patient, Family Exam Limitations: No Limitations History of Present Illness Date Seen by Provider: Jul 13, 2020 Time Seen by Provider: 12:15 Initial Comments Patient is a 49-year-old male who presents to the emergency department with a chief complaint of left upper quadrant abdominal pain. Patient states that his pain started about a week ago. His was able to get him to take a couple of Tylenol yesterday but no other pain medications have been given. Patient denies having any nausea, vomiting. Nothing really makes the pain any worse other than palpating over the area and coughing. Patient has a history of COPD and has noted in the past 24 hours that he has had a cough productive of some clearish sputum. Patient has been chewing cough drops and has had some Tessalon Perles for the cough. Patient states that his abdominal pain has increased to a "10 of 10". He states that the pain reminds him when his appendix ruptured. Patient states that he had a very dark bowel movement yesterday. He denies that it was black or tarry but he states it was very very dark. He denies any diarrheal symptoms. No problems with urination. Nothing makes the pain really any bet ter. All other review of systems reviewed and negative except as stated above. Timing/Duration: 1 Week Severity/Quality: Severe, Aching, Burning Location: LUQ Radiation: No Radiation Activities at Onset: None Modifying Factors: Worsens With Coughing, Worsens With Palpation Associated Symptoms: Denies Symptoms Allergies and Home Medications Allergies Coded Allergies: Haloperidol Lactate (Verified Allergy, Unknown, 09/05/18) haloperidol (Verified Allergy, Unknown, 09/05/18) Home Medications Amoxicillin/Potassium Clav 1 Each Tablet, 1 EACH PO BID Prescribed by: HIEU WALTERS on 07/24/19 1046 Budesonide/Formoterol Fumarate 10.2 Gm Hfa.aer.ad, 2 PUFF IH BID, (Reported) Hydrocodone/Acetaminophen 1 Each Tablet, 1 TAB PO Q4H PRN for PAIN-MODERATE (5- 7) Prescribed by: HIEU WALTERS on 07/24/19 1057 Penicillin V Potassium 500 Mg Tablet, 500 MG PO TID Prescribed by: KURTIS ORTIZ on 06/27/20 0059 Patient Home Medication List Home Medication List Reviewed: Yes Review of Systems Review of Systems Constitutional: see HPI EENTM: No Symptoms Reported Respiratory: Cough Cardiovascular: No Symptoms Reported Gastrointestinal: Abdominal Pain, Other (Dark stools) Genitourinary: No Symptoms Reported Musculoskeletal: no symptoms reported Skin: no symptoms reported Psychiatric/Neurological: No Symptoms Reported All Other Systems Reviewed Negative Unless Noted: Yes Past Udhdzpy-Sxojut-Gprxne Hx Patient Social History Alcohol Use: Denies Use Drug of Choice: THC Smoking Status: Current Everyday Smoker Type Used: Cigarettes 2nd Hand Smoke Exposure: Yes Recent Infectious Disease Expo: No Recent Hopitalizations: No Seasonal Allergies Seasonal Allergies: No Past Medical History Surgeries: Yes (RT WRIST ; PERIUMBILICAL HERNIA REPAIR WITH MESH, PLASTIC SURGERY HEAD) Abdominal, Appendectomy, Orthopedic Respiratory: Yes COPD Currently Using CPAP: No Currently Using BIPAP: No Cardiac: No Neurological: Yes (SEIZURES--UNKNOWN CAUSE, NO MEDICATIONS) Seizure Disorder Genitourinary: No Gastrointestinal: Yes Abdominal Hernia Musculoskeletal: Yes Chronic Back Pain Endocrine: No HEENT: Yes (POOR DENTITION) Cancer: No Psychosocial: No Integumentary: No Blood Disorders: No Family Medical History No Pertinent Family Hx Physical Exam Vital Signs Vital Signs - First Documented 07/13/20 01:42 Temp 36.9 Pulse 76 Resp 18 B/P (MAP) 149/108 (122) Pulse Ox 96 O2 Delivery Room Air Capillary Refill : Less Than 3 Seconds Height/Weight/BMI Height: 5'9.00" Weight: 200lbs. oz. 90.825273mg; 35.00 BMI Method:Stated General Appearance: WD/WN, no apparent distress HEENT: PERRL/EOMI Neck: normal inspection Respiratory: lungs clear, normal breath sounds, no respiratory distress, no accessory muscle use Cardiovascular: regular rate, rhythm, no murmur Gastrointestinal: soft; No abnormal bowel sounds, No distended, No guarding, No rebound; tenderness (Left upper quadrant just below the left rib cage and in the flank) Extremities: normal range of motion, non-tender, normal inspection, no pedal edema Neurologic/Psychiatric: alert, normal mood/affect, oriented x 3 Skin: normal color, warm/dry Progress/Results/Core Measures Results/Orders Lab Results Laboratory Tests Test 07/13/20 01:52 Range/Units White Blood Count 11.3 H 4.3-11.0 10^3/uL Red Blood Count 4.98 4.30-5.52 10^6/uL Hemoglobin 15.3 13.3-17.7 g/dL Hematocrit 46 40-54 % Mean Corpuscular Volume 92 80-99 fL Mean Corpuscular Hemoglobin 31 25-34 pg Mean Corpuscular Hemoglobin Concent 33 32-36 g/dL Red Cell Distribution Width 12.7 10.0-14.5 % Platelet Count 287 130-400 10^3/uL Mean Platelet Volume 9.8 9.0-12.2 fL Immature Granulocyte % (Auto) 1 % Neutrophils (%) (Auto) 54 42-75 % Lymphocytes (%) (Auto) 35 12-44 % Monocytes (%) (Auto) 6 0-12 % Eosinophils (%) (Auto) 3 0-10 % Basophils (%) (Auto) 0 0-10 % Neutrophils # (Auto) 6.1 1.8-7.8 10^3/uL Lymphocytes # (Auto) 4.0 1.0-4.0 10^3/uL Monocytes # (Auto) 0.7 0.0-1.0 10^3/uL Eosinophils # (Auto) 0.4 H 0.0-0.3 10^3/uL Basophils # (Auto) 0.1 0.0-0.1 10^3/uL Immature Granulocyte # (Auto) 0.1 0.0-0.1 10^3/uL Sodium Level 138 135-145 MMOL/L Potassium Level 3.8 3.6-5.0 MMOL/L Chloride Level 103 98-107 MMOL/L Carbon Dioxide Level 22 21-32 MMOL/L Anion Gap 13 5-14 MMOL/L Blood Urea Nitrogen 11 7-18 MG/DL Creatinine 1.03 0.60-1.30 MG/DL Estimat Glomerular Filtration Rate > 60 BUN/Creatinine Ratio 11 Glucose Level 150 H 70-105 MG/DL Calcium Level 9.4 8.5-10.1 MG/DL Corrected Calcium 9.2 8.5-10.1 MG/DL Total Bilirubin 0.1 0.1-1.0 MG/DL Aspartate Amino Transf (AST/SGOT) 15 5-34 U/L Alanine Aminotransferase (ALT/SGPT) 29 0-55 U/L Alkaline Phosphatase 54 40-136 U/L Total Protein 7.3 6.4-8.2 GM/DL Albumin 4.2 3.2-4.5 GM/DL My Orders Orders - VINNY WILSON MD Ed Iv/Invasive Line Start (07/13/20 02:39) Cbc With Automated Diff (07/13/20 02:39) Comprehensive Metabolic Panel (07/13/20 02:39) Ketorolac Injection (Toradol Injection) (07/13/20 02:45) Orphenadrine Inj (Ed Only) (Norflex Inje (07/13/20 02:45) Benzonatate Capsule (Tessalon Perles) (07/13/20 03:00) Chest 1 View, Ap/Pa Only (07/13/20 02:59) Ct Abdomen/Pelvis Wo (07/13/20 03:32) Medications Given in ED Current Medications Medications Dose Ordered Sig/Everardo Route Start Time Stop Time Status Last Admin Dose Admin Ketorolac Tromethamine 15 mg ONCE ONCE IVP 07/13/20 02:45 07/13/20 02:46 DC 07/13/20 03:01 15 MG Orphenadrine Citrate 60 mg ONCE ONCE IV 07/13/20 02:45 07/13/20 02:46 DC 07/13/20 03:01 60 MG Vital Signs/I&O 07/13/20 01:42 Temp 36.9 Pulse 76 Resp 18 B/P (MAP) 149/108 (122) Pulse Ox 96 O2 Delivery Room Air Blood Pressure Mean: 122 Progress Progress Note : Time: 05:00 Progress Note Patient has been resting comfortably throughout his time here in the emergency department. He is noted to have a mildly elevated white blood cell count. No other significant findings on chemistry or CBC are noted. Patient CT is unremarkable. He will be sent home with a prescription for his cough for Tessalon Perles and some naproxen for pain. Recommend follow-up with a primary care physician. Several names will be given to the patient for outpatient follow-up in [place]. Return precautions have also been given. Patient verbalizes understanding. All questions have been sought and answered. Patient is stable for discharge. Diagnostic Imaging Diagonstic Imaging: CT Plain Films/CT/US/NM/MRI: abdomen Comments CT scan of the abdomen and pelvis without contrast shows no specific findings to explain the left upper quadrant abdominal pain identified. Patient's ventral abdominal hernia is new. It is a fat-containing midline supraumbilical hernia measuring 3.3 cm wide. No soft tissue stranding suspicious for incarceration. Departure Impression Primary Impression: Left upper quadrant abdominal pain Disposition: HOME, SELF-CARE Condition: Stable Departure-Patient Inst. Decision time for Depature: 05:01 Referrals: [facility] (PCP) Primary Care Physician HAROON DOBBINS MD (Family) Primary Care Physician YARED CORTES MD, PANKAJ K MD Patient Instructions: Abdominal Pain, Adult ED Add. Discharge Instructions: Take the naproxen twice daily as needed with food for pain. I have given you a prescription for Tessalon Perles as well for cough. You can take this three times daily as needed. Follow-up with a primary care physician. Return to the emergency department for any increased/worsening pain especially associated with nausea, vomiting fever or any other emergent concerning symptoms. Scripts Benzonatate (TESSALON PERLES) 100 Mg Capsule 200 MG PO TID PRN for COUGH, #30 CAP Prov: VINNY WILSON MD 07/13/20 Naproxen (Naprosyn) 500 Mg Tablet 500 MG PO BID WITH MEALS PRN for PAIN-MODERATE (5-7), #20 TAB Prov: VINNY WILSON MD 07/13/20 VINNY WILSON MD Jul 13, 2020 03:36
[2020-07-13] MEDS ORDERED: NAPR-1071 PO (05:04)
[2020-07-13] MEDS ORDERED: BENZ100C18 PO (05:04)
[2020-07-13 05:06] VITALS: BP 133/82
--- NOTE | 2020-07-13 07:04 | Diagnostic Imaging Report ---
Clinical indications: Patient with cough, shortness of air. Patient has history of COPD. Exam: Portable chest x-ray upright view. Comparisons: Chest x-ray dated 07/22/2019. Findings: Lungs/pleura: Slightly hyperinflated lungs are seen. Lungs are clear. There is no pneumothorax. There is no pleural effusion. Mediastinum: Unremarkable. Pulmonary vasculature: Unremarkable. Heart: Unremarkable. Bones/extrathoracic soft tissue: Unremarkable. Impression: There is no radiographic evidence of acute cardiopulmonary process. Dictated by: Dictated on workstation # [id number]
--- NOTE | 2020-07-13 08:50 | Diagnostic Imaging Report ---
PROCEDURE: CT abdomen and pelvis without contrast. TECHNIQUE: Multiple contiguous axial images were obtained through the abdomen and pelvis without the use of intravenous contrast. Auto Exposure Controls were utilized during the CT exam to meet ALARA standards for radiation dose reduction. INDICATION: Left upper quadrant pain for one week, previous hernia repair and appendectomy. COMPARISON STUDY: CT abdomen and pelvis from 07/21/2019. FINDINGS: The lung bases are clear. Some simple cysts are present within the liver with no solid masses or ductal dilatation. The gallbladder is decompressed. Spleen, pancreas, adrenal glands appear normal. Kidneys are unremarkable. No calculi are seen in the ureters or urinary bladder. There is no urinary bladder wall thickening. Prostate gland appears normal. Some diverticula are present within the colon without inflammation. The appendix is absent. No ascites, free air or abnormal adenopathy is present. There is a new midline abdominal wall hernia containing fat only at this time. The transverse colon does abut this. The orifice of the hernia measures 4.2 cm. IMPRESSION: 1. There is a new abdominal wall hernia. No bowel loops are present at this time but the colon does abut this. 2. Colonic diverticulosis without inflammation. 3. There is degenerative spine. Findings agree with [facility] report. Dictated by: Dictated on workstation # [id number]
== END 2020-07-13 05:11 | disposition home or self-care (01) ==
LOC: EDUNIT# 01:05 → ER 01:10
DX: R10.12 Left upper quadrant pain (principal); I10 Essential (primary) hypertension; G89.29 Other chronic pain; M54.9 Dorsalgia, unspecified; J44.9 Chronic obstructive pulmonary disease, unspecified; F17.210 Nicotine dependence, cigarettes, uncomplicated; Z88.8 Allergy status to other drugs, medicaments and biological substances; Z79.891 Long term (current) use of opiate analgesic
CPT/HCPCS: 36415; 71045; 74176; 80053; 85025

== ENCOUNTER 2021-05-19 08:10 | Day surgery (SDC) | payer BC ==
[~2021-05-19] VITALS: Ht 175.3 cm; Wt 108.4 kg
[~2021-05-19 08:10] MED LIST changes: +BENZ100C18 PO
[2021-05-19] MEDS ORDERED: LACTATED RINGERS 1,000 ML IV STA (08:12)
[2021-05-19] MEDS ORDERED: LACTATED RINGERS 1,000 ML IV ONE (08:17)
[2021-05-19 08:20] VITALS: BP 125/83
[2021-05-19] MEDS ORDERED: PROPOFOL INJECTION 50 ML IV ONE (08:23)
--- NOTE | 2021-05-19 08:35 | Progress Note-Pre Operative ---
Pre-Operative Progress Note H&P Reviewed The H&P was reviewed, patient examined and no changes noted. Time Seen by Provider: 08:29 Date H&P Reviewed: May 19, 2021 Time H&P Reviewed: 08:29 Pre-Operative Diagnosis: Screening Colonoscopy ARNEL JAVIER DO May 19, 2021 08:35
--- NOTE | 2021-05-19 09:04 | Anesthesia-General Post-Op ---
MAC Patient Condition Mental Status/LOC: Same as Preop Cardiovascular: Satisfactory Nausea/Vomiting: Absent Respiratory: Satisfactory Pain: Controlled Complications: Absent Post Op Complications Complications None Follow Up Care/Instructions Patient Instructions None needed. Anesthesiology Discharge Order Discharge Order Patient is doing well, no complaints, stable vital signs, no apparent adverse anesthesia problems. No complications reported per nursing. EMETERIO BOWLING CRNA May 19, 2021 09:04
[2021-05-19 09:05] VITALS: BP 105/73
[2021-05-19 09:10] VITALS: BP 108/73
--- NOTE | 2021-05-19 09:14 | Progress Note-Post Operative ---
Post-Operative Progess Note Surgeon (s)/Vending Route Driver (s) Surgeon ARNEL JAVIER DO Vending Route Driver: KATHARINE Barkley Pre-Operative Diagnosis Screening Colonoscopy Post-Operative Diagnosis Polyps Diverticula int hemorrhoids Procedure & Operative Findings Date of Procedure 05/19/21 Procedure Performed/Findings Colon with snare Colon with cold bx PROCEDURE NOTE: After informed consent was obtained, the patient was brought to the endoscopy suite, placed in bed in left lateral decubitus position. He was administered IV sedation by the TELEMARKETING AGENT who then monitored his vitals the entire time, heart rate, blood pressure and pulse ox and the scope was inserted, pushed all the way to about 150 cm and pushed into the cecum. On the way in noted some diverticula and took a picture of them. Once in the Cecum took a picture of appendiceal orifice and noted the ileo-cecal valve. Then slowly withdrew the scope insufflating to look circumferentially at the obrien starting in the cecum, up the ascending colon to the hepatic flexure and then down the transverse colon. Continued to the splenic flexure, into the descending colon, down into the sigmoid and then finally into the rectum. Saw a flat polyp and elected to do a cold biopsy; then moved another 5-10 cm, probably just outside the vault and saw a larger polyp on a stalk. Elected to completely remove this with a snare polypectomy and suctioned it up. Finally in the rectal vault; retroflexed the scope. Took picture of the internal hemorrh oids. The patient tolerated the procedure. He was recovered in endoscopy suite. Anesthesia Type IV sedation by TELEMARKETING AGENT Estimated Blood Loss Estimated blood loss (mL): scant Specimens/Packing Specimens Removed rectal polyp bx rectal polyp snare ARNEL JAVIER DO May 19, 2021 09:14
--- NOTE | 2021-05-19 09:15 | Endoscopy Discharge Instruct ---
Endo Procedure/Findings Findings 1.: Polyp 2.: Diverticulosis 3.: Internal Hemorrhoids Discharge Instructions - Activity: You might feel a little sleepy until tomorrow. This is due to the medicine you received to relax you. Until tomorrow, you should: NOT drive a car, operate machinery or power tools. NOT drink any alcoholic beverages. NOT make any important decisions or sign importortant papers. Do not return to work until tomorrow, unless otherwise instructed. Resume previous activities tomorrow. Diet: Start by taking liquids. If you tolerate liquids, advance to solid food. 1.: Colonscopy in 5 years Notify Physician - If you experience excessive bleeding, unusual abdominal pain, fever, or chest pain, contact your doctor immediately. ARNEL JAVIER DO May 19, 2021 09:15
[2021-05-19 09:25] VITALS: BP 107/87
[2021-05-19 09:40] VITALS: BP 107/87
== END 2021-05-19 09:40 | disposition home or self-care (01) ==
LOC: ENDO 08:10
PROVIDERS: ATTEND Surgery
DX: D12.8 Benign neoplasm of rectum (principal); K62.1 Rectal polyp; K57.30 Diverticulosis of large intestine without perforation or abscess without bleeding; K64.8 Other hemorrhoids; K43.2 Incisional hernia without obstruction or gangrene; F17.210 Nicotine dependence, cigarettes, uncomplicated; M54.50 Low back pain, unspecified; J44.9 Chronic obstructive pulmonary disease, unspecified; I10 Essential (primary) hypertension; E66.9 Obesity, unspecified; Z68.35 Body mass index [BMI] 35.0-35.9, adult

== ENCOUNTER 2021-06-18 05:38 | Outpatient (CLI) | payer BC ==
[~2021-06-18] VITALS: Ht 175.2 cm; Wt 107.3 kg
[2021-07-06] MEDS ORDERED: ACHD5005 PO (15:09)
== END 2021-07-14 09:15 | disposition home or self-care (01) ==
LOC: PREOP 05:38
PROVIDERS: ATTEND Surgery
DX: Z01.818 Encounter for other preprocedural examination (principal)

== ENCOUNTER 2021-07-06 13:55 | Emergency (ER) | payer BC ==
[~2021-07-06] VITALS: Ht 175.2 cm; Wt 108.4 kg
[2021-07-06] MEDS ORDERED: KETOROLAC 60 MG/2 ML VIAL IM ONE (14:15)
[2021-07-06 14:17] LABS: BILIRUBIN,URINE NEGATIVE (NEGATIVE); CLARITY,URINE CLEAR; COLOR,URINE YELLOW; GLUCOSE, URINE (UA) NEGATIVE (NEGATIVE); KETONES,URINE NEGATIVE (NEGATIVE); LEUKOCYTE ESTERASE ,URINE NEGATIVE (NEGATIVE); NITRITE,URINE NEGATIVE (NEGATIVE); PH,URINE 6.5 (5-9); PROTEIN,URINE NEGATIVE (NEGATIVE)
[2021-07-06 14:21] LABS: BACTERIA,URINE TRACE /HPF; SQUAMOUS EPITHELIAL CELL,UR 0-2 /HPF
[2021-07-06 14:33] LABS: AMPHETAMINE SCREEN, URINE NEGATIVE (NEGATIVE); BARBITURATE SCREEN URINE NEGATIVE (NEGATIVE); BENZODIAZEPINES SCREEN URINE NEGATIVE (NEGATIVE); CANNABINOID SCREEN, URINE NEGATIVE (NEGATIVE); COCAINE SCREEN URINE NEGATIVE (NEGATIVE); METHADONE STAT NEGATIVE (NEGATIVE); METHAMPHETAMINE SCREEN URINE S NEGATIVE (NEGATIVE); OPIATE SCREEN URINE NEGATIVE (NEGATIVE); OXYCODONE STAT NEGATIVE (NEGATIVE); PROPOXYPHENE STAT NEGATIVE (NEGATIVE); TRICYCLIC ANTIDEPRESSANTS SCRE NEGATIVE (NEGATIVE)
--- NOTE | 2021-07-06 15:08 | ED Back Pain ---
General Chief Complaint: Back Problems Stated Complaint: BACK PAIN Nursing Triage Note: Patient presents to the ED with c/o left flank pain. Reports the pain began suddenly several hours ago and has not improved. Denies any known injury or history of kidney stones. Source of Information: Patient Exam Limitations: No Limitations History of Present Illness Date Seen by Provider: Jul 06, 2021 Time Seen by Provider: 14:00 Initial Comments Patient is a 50-year-old male presents with sudden onset left lower flank pain approximately 4 hours prior to ED arrival. Pain is sharp, intense reproduces with palpation and movement. Pain is mild to moderate. No improvement patient denies midline pain, radicular pain, migratory pain, testicular pain swelling or hematuria. Denies abdominal pain or tenderness. No history of kidney stones diabetes, hypertension or AAA. No medications or therapies taken prior to ED arrival. Timing/Duration: 1 Hour Severity: Moderate Pain/Injury Location: Back Allergies and Home Medications Allergies Coded Allergies: Haloperidol Lactate (Verified Allergy, Unknown, 09/05/18) haloperidol (Verified Allergy, Unknown, 09/05/18) Patient Home Medication List Home Medication List Reviewed: Yes Albuterol Sulfate (Albuterol Sulfate) 2.5 Mg/3 Ml Vial.neb, 2.5 MG INH, (Reported) Entered as Reported by: LISA LAU on 07/21/191740 Budesonide/Formoterol Fumarate (Symbicort 160-4.5 Mcg Inhaler) 10.2 Gm Hfa.aer.ad, 2 PUFF IH BID, (Reported) Entered as Reported by: ILSA LAU on 07/21/191740 Review of Systems Constitutional: see HPI EENTM: see HPI Respiratory: see HPI Cardiovascular: see HPI Gastrointestinal: see HPI Genitourinary: see HPI Musculoskeletal: see HPI Skin: see HPI Psychiatric/Neurological: See HPI All Other Systems Reviewed Negative Unless Noted: Yes Past Eyevvir-Tmnypw-Wddvtj Hx Patient Social History Tobacco Use?: Yes Tobacco type used: Cigarettes Smoking Status: Current Everyday Smoker Substance use?: No Alcohol Use?: No Immunizations Up To Date First/Initial COVID19 Vaccinat: NO Second COVID19 Vaccination Jay: NO Third COVID19 Vaccination Date: NO Seasonal Allergies Seasonal Allergies: No Past Medical History Surgery/Hospitalization HX: COPD; Chronic Back pain Surgeries: Yes (RT WRIST ; PERIUMBILICAL HERNIA REPAIR WITH MESH, PLASTIC SURGERY HEAD) Abdominal, Appendectomy, Orthopedic Respiratory: Yes COPD Currently Using CPAP: No Currently Using BIPAP: No Cardiac: No Neurological: Yes (SEIZURES-- FORMER BOXER) Seizure Disorder Genitourinary: No Gastrointestinal: Yes Abdominal Hernia Musculoskeletal: Yes Chronic Back Pain Endocrine: No HEENT: Yes (POOR DENTITION) Cancer: No Psychosocial: No Integumentary: No Blood Disorders: No Family Medical History No Pertinent Family Hx Physical Exam Vital Signs Vital Signs - First Documented 07/06/21 13:59 Temp 36.2 Pulse 89 Resp 20 B/P (MAP) 135/94 (108) Pulse Ox 96 O2 Delivery Room Air Capillary Refill : Less Than 3 Seconds Height, Weight, BMI Height: 5'9.00" Weight: 200lbs. oz. [id number]; 35.00 BMI Method:Stated General Appearance: WD/WN, Anxious, Moderate Distress HEENT: PERRL/EOMI Neck: Non Tender, Supple Cardiovascular: Regular Rate, Rhythm, No Edema Respiratory: Lungs Clear, Normal Breath Sounds Gastrointestinal: Non Tender, Soft; No Mass Back: Normal Inspection, No CVA Tenderness, Other (Left paravertebral point pain tenderness with muscle spasm reproducing complaint.) Neurologic/Psychiatric: Alert, Oriented x3, No Motor/Sensory Deficits Progress/Results/Core Measures Results/Orders Lab Results Laboratory Tests Test 07/06/21 14:13 Range/Units Urine Color YELLOW Urine Clarity CLEAR Urine pH 6.5 5-9 Urine Specific [place] 1.025 H 1.016-1.022 Urine Protein NEGATIVE NEGATIVE Urine Glucose (UA) NEGATIVE NEGATIVE Urine Ketones NEGATIVE NEGATIVE Urine Nitrite NEGATIVE NEGATIVE Urine Bilirubin NEGATIVE NEGATIVE Urine Urobilinogen 0.2 < = 1.0 MG/DL Urine Leukocyte Esterase NEGATIVE NEGATIVE Urine RBC (Auto) NEGATIVE NEGATIVE Urine RBC 5-10 H /HPF Urine WBC NONE /HPF Urine Squamous Epithelial Cells 0-2 /HPF Urine Crystals NONE /LPF Urine Bacteria TRACE /HPF Urine Casts NONE /LPF Urine Mucus MODERATE H /LPF Urine Culture Indicated NO Urine Opiates Screen NEGATIVE NEGATIVE Urine Oxycodone Screen NEGATIVE NEGATIVE Urine Methadone Screen NEGATIVE NEGATIVE Urine Propoxyphene Screen NEGATIVE NEGATIVE Urine Barbiturates Screen NEGATIVE NEGATIVE Ur Tricyclic Antidepressants Screen NEGATIVE NEGATIVE Urine Phencyclidine Screen NEGATIVE NEGATIVE Urine Amphetamines Screen NEGATIVE NEGATIVE Urine Methamphetamines Screen NEGATIVE NEGATIVE Urine Benzodiazepines Screen NEGATIVE NEGATIVE Urine Cocaine Screen NEGATIVE NEGATIVE Urine Cannabinoids Screen NEGATIVE NEGATIVE My Orders Orders - DIANE STAHL DO Ua Culture If Indicated (07/06/21 14:10) Drug Screen Stat (Urine) (07/06/21 14:10) Ketorolac Injection (Toradol Injection) (07/06/21 14:15) Medications Given in ED Current Medications Medications Dose Ordered Sig/Everardo Route Start Time Stop Time Status Last Admin Dose Admin Ketorolac Tromethamine 60 mg ONCE ONCE IM 07/06/21 14:15 07/06/21 14:16 DC 07/06/21 14:17 60 MG Vital Signs/I&O 07/06/21 13:59 Temp 36.2 Pulse 89 Resp 20 B/P (MAP) 135/94 (108) Pulse Ox 96 O2 Delivery Room Air Blood Pressure Mean: 108 Departure Communication (Admissions) UA, urine drug screen negative. Patient's pain treated with significant improvement. Impression Primary Impression: Acute left flank pain Disposition: 01 HOME, SELF-CARE Condition: Stable Departure-Patient Inst. Decision time for Depature: 15:06 Referrals: HAROON DOBBINS MD (PCP) Primary Care Physician Patient Instructions: Flank Pain ED Add. Discharge Instructions: You were evaluated in the emergency department for left flank pain. The exact cause of your symptoms has not been determined. Please take naproxen and muscle relaxer for pain and hydrocodone as needed for additional relief. Avoid strenuous physical activity and heavy lifting. Follow-up with your PCP in 3 to 5 days for reevaluation if symptoms persist. Return to the ED if new or worsening symptoms period. All discharge instructions reviewed with patient and/or family. Voiced un derstanding. Scripts Hydrocodone/Acetaminophen (Hydrocodone-Acetamin 5-325 mg) 1 Each Tablet 1 TAB PO Q4H PRN for PAIN-MODERATE (5-7), #10 TAB Prov: DIANE STAHL DO 07/06/21 DIANE STAHL DO Jul 06, 2021 15:08
[2021-07-06] MEDS ORDERED: ACHD5005 PO (15:09)
[2021-07-06 15:11] VITALS: BP 135/94
== END 2021-07-06 15:11 | disposition home or self-care (01) ==
LOC: EDUNIT# 13:55 → ER FS 13:56
DX: R10.32 Left lower quadrant pain (principal); F17.210 Nicotine dependence, cigarettes, uncomplicated
CPT/HCPCS: 80306; 81000; 99284

== ENCOUNTER 2021-07-16 06:08 | Day surgery (SDC) | payer BC ==
[2021-07-16] VITALS (14 sets, daily range): BP systolic 106–146; BP diastolic 63–101
[~2021-07-16] VITALS: Ht 175.2 cm; Wt 107.3 kg
[2021-07-16] MEDS ORDERED: MIDAZOLAM 2 MG/2 ML (VERSED) VIAL ONE (07:07)
[2021-07-16] MEDS ORDERED: fentaNYL INJ 100 MCG/2 ML AMP ONE ×2 (07:07→09:22)
[2021-07-16] MEDS ORDERED: ONDANSETRON 4 MG/2 ML (SDV) Z0FRAN ONE (07:07)
[2021-07-16] MEDS ORDERED: LIDOCAINE PF 2% 5 ML (XYLOCAINE) VIAL ONE (07:07)
[2021-07-16] MEDS ORDERED: ROCURONIUM 10 MG/ML 5 ML SYRINGE IV ONE (07:07)
[2021-07-16] MEDS ORDERED: proPOfol 200 MG/20 ML (DIPRIVAN) VIAL IV ONE (07:07)
[2021-07-16] MEDS ORDERED: ceFAZolin 2 GM IV Premixed 50 ML IV ONE (07:15)
[2021-07-16] MEDS ORDERED: ceFAZolin 2 GM IV Premixed 50 ML ONE (07:17)
[2021-07-16] MEDS: LACTATED RINGERS 1,000 ML IV PRN ×2 (07:32→09:08)
[2021-07-16] MEDS ORDERED: LIDOCAINE/EPI 2% 1:100,00 (XYLOCAINE) 20 ML VIAL ONE (07:38)
[2021-07-16] MEDS ORDERED: SUGAMMADEX 500 MG/5 ML VIAL (BRIDION) IV ONE (09:31)
--- NOTE | 2021-07-16 09:39 | Progress Note-Post Operative ---
Post-Operative Progess Note Surgeon (s)/Glass Checker (s) Surgeon ARNEL JAVIER DO Glass Checker: Dominique Pre-Operative Diagnosis INCISIONAL HERNIA Post-Operative Diagnosis Incarcerated incisional/ventral hernia Procedure & Operative Findings Date of Procedure 07/16/21 Procedure Performed/Findings PROCEDURE: Laparoscopic Incisional/Ventral hernia repair with mesh. COMPLICATIONS: None. INDICATIONS: The patient is a 50, male with an incarcerated incisional hernia, which has continued to increase in size and cause discomfort. The patient was explained the risk and benefits of the procedure and wished to proceed with the procedure. Consent was signed on the chart. DESCRIPTION OF PROCEDURE: The patient was taken into the operating suite, prepped and draped in sterile fashion. Surgical pause was performed. Local anesthetic was infiltrated in left upper quadrant. A 15 blade scalpel was used to make a small skin incision. Cautery was used to dissect down to the fascia, which was then scored and divided the muscle, went through the posterior sheath and a balloon trocar was inserted into the abdomen. The abdomen was then insufflated. Incarcerated incisional hernia was seen with the omentum adhesed to the abdominal wall. A 5 mm trocar was placed in the right lower quadrant and a 5 mm trocar was placed in left lower quadrant. The adesions were taken down and out of the hernia defect with the Ligasure. The defect was then closed using 0 Vicryl with a Dez-Troy 2 simple sutures to close; pic taken. Echo Ventralight mesh 6 inch round was then inserted into the abdomen through the 11mm trochar port and grabbed through a stab incision. The balloon was inflated on the mesh. Circumferential tacks were placed with a SecureStrap Tacker. The balloon was then removed and inner crown was created as well. The mesh was tacked with pressure being decreased to 8mm Hg. The 12 mm fascial defect was then closed using 0 Vicryl figure of eight suture. The abdomen was then desufflated,the trocars were removed. The skin was then closed using 4- 0 Monocryl in a running subcuticular fashion. The abdomen was washed and dried and Skin Affix was placed over the incisions. The patient tolerated procedure well without any complications. She was taken to recovery room in stable condition. Dr. Fox assisted on this case helping to make incisions, close incisions, identify anatomy, hold anatomy out of the way and place tacks. Anesthesia Type GET Estimated Blood Loss Estimated blood loss (mL): scant Specimens/Packing Specimens Removed none ARNEL JAVIER DO Jul 16, 2021 09:39
[2021-07-16] MEDS ORDERED: ACHD5005 PO ×2 (09:41→14:27)
--- NOTE | 2021-07-16 09:43 | Discharge Inst-Surgical ---
Discharge Inst-Surgical Depart Medication/Instructions New, Converted or Re-Newed RX: Transmitted to Pharmacy Patient Instructions Follow up Appt: Make appointment for 1 week. [phone] Instructions: No lifting greater than 20 pounds. No strenuous activity. May shower in 24 hours, no tub bath or soaking. Use incentive spirometer at home as directed. No Smoking Skin/Wound Care: May remove bandages in am. You need to leave the Dermabond on incision it will fall off on it's own. Symptoms to Report: Appetite Changes, Extremity Discoloration, Numbness/Tingling, Swelling Increased, Bleeding Excessive, Eyesight Changes, Pain Increased, Urine Color Change, Constipation(Persistent), Fever over 101 degree F, Pain/Pressure in chest, Urinating Difficulty, Cough Up/Vomit Blood, Heart Beat Irreg/Pounding, Pain/Pressure in jaw, Cramps in feet or legs, Lightheadedness, Pain/Pressure in shoulder, Diarrhea(Persistent), Memory Changes Suddenly, Questions/Concerns, Weight gain consecutive days, Dizziness/Fainting, Nausea/Vomiting, Shortness of Breath, Weight gain over 2 pounds If questions or concerns contact your physician Or seek help at emergency department. Activity Activity as Tolerated: Yes Driving Instructions: No Driving/Refer to Dr. Donald Discharge Diet: No Restrictions Diet After 24 Hours: Clear Liquid if Nauseous If Any Problems/Questions/Issu: Contact Your Physician, Go to Emergency Room Skin/Wound Care Infection Signs and Symptoms: Increased Redness, Foul Odor of Wound, Increased Drainage, Skin Itchy or Has a Rash, Increased Swelling, Temperature Above 101 F Wound Care Comment: heating pad to shoulder or neck tonight for pain Bathing Instructions: Shower Stitches/Ole/Dermabond Dis: Dermabond Ice Pack: Ice On and Off Site ARNEL JAVIER DO Jul 16, 2021 09:43
[2021-07-16] MEDS ORDERED: SEVOFLURANE (ULTANE) 15 ML INHAL SOLN ONE (09:44)
[2021-07-16] MEDS ORDERED: ONDANSETRON 4 MG/2 ML (SDV) Z0FRAN IVP PRN (10:00)
[2021-07-16] MEDS ORDERED: morphine INJ 10 MG/ML 1ML (SYR OR VIAL) IVP ONE (10:00)
[2021-07-16] MEDS ORDERED: HYDROmorphone 2 MG/ML VIAL (DILAUDID) IV ONE (10:00)
[2021-07-16] MEDS ORDERED: MEPERIDINE (DEMEROL) INJ 50 MG/ML IVP ONE (10:00)
[2021-07-16] MEDS ORDERED: HYDROmorphone 2 MG/ML VIAL (DILAUDID) ONE (10:13)
[2021-07-16] MEDS ORDERED: HYDROcodone/APAP 5 MG/325 MG (LORTAB) TAB PO ONE (11:00)
--- NOTE | 2021-07-16 12:00 | Anesthesia-General Post-Op ---
General Patient Condition Mental Status/LOC: Same as Preop Cardiovascular: Satisfactory Nausea/Vomiting: Absent Respiratory: Satisfactory Pain: Controlled Complications: Absent Post Op Complications Complications None Follow Up Care/Instructions Patient Instructions None needed. Anesthesia/Patient Condition Patient Condition Patient is doing well, no complaints, stable vital signs, no apparent adverse anesthesia problems. No complications reported per nursing. EMILY COLEY CRNA Jul 16, 2021 12:00
== END 2021-07-16 12:35 | disposition home or self-care (01) ==
LOC: SDC 06:08
PROVIDERS: ATTEND Surgery
DX: K43.0 Incisional hernia with obstruction, without gangrene (principal); E66.9 Obesity, unspecified; Z68.35 Body mass index [BMI] 35.0-35.9, adult; F17.210 Nicotine dependence, cigarettes, uncomplicated
CPT/HCPCS: 87081

== ENCOUNTER 2021-09-29 12:55 | Inpatient (IN) | payer BC ==
[~2021-09-29] VITALS: Ht 175.2 cm; Wt 107.2 kg
--- NOTE | 2021-09-29 13:44 | ED General ---
General Stated Complaint: FACIAL SWELLING; DENTAL PAIN History of Present Illness Date Seen by Provider: Sep 29, 2021 Time Seen by Provider: 13:44 Initial Comments 51-year-old male with PMH of chronic dental caries and broken teeth, is here with complaints of left-sided cheek swelling and pain with an earlier popping sensation today morning within that cheek swelling. This began last night and the swelling became increasingly larger today morning. Patient also complains of pain. Denies fever, nausea and vomiting, headache, neck stiffness or neck pain. Allergies and Home Medications Allergies Coded Allergies: Haloperidol Lactate (Verified Allergy, Unknown, BODY LOCKS UP, MUSCLES FREEZE, 07/14/21) haloperidol (Verified Allergy, Unknown, BODY LOCKS UP, MUSCLES FREEZE, 07/14/21) Patient Home Medication List Home Medication List Reviewed: Yes Albuterol Sulfate (Albuterol Sulfate) 2.5 Mg/3 Ml Vial.neb, 2.5 MG INH, (Reported) Entered as Reported by: LISA LAU on 07/21/191740 Last Action: Reviewed Budesonide/Formoterol Fumarate (Symbicort 160-4.5 Mcg Inhaler) 10.2 Gm Hfa.aer.ad, 2 PUFF IH BID, (Reported) Entered as Reported by: LISA LAU on 07/21/191740 Last Action: Converted Hydrocodone Bit/Acetaminophen (HYDROcodone/APAP 5 MG/325 MG TAB) 1 Tab Tab, 1 TAB PO Q6H PRN for PAIN-MODERATE (5-7) Prescribed by: ARNEL JAVIER on 07/16/21 1428 Review of Systems Review of Systems Constitutional: no symptoms reported EENTM: dental problems, other (left facial swelling) Respiratory: no symptoms reported Cardiovascular: no symptoms reported Gastrointestinal: no symptoms reported Genitourinary: no symptoms reported Musculoskeletal: no symptoms reported Skin: no symptoms reported Psychiatric/Neurological: No Symptoms Reported Hematologic/Lymphatic: No Symptoms Reported Immunological/Allergic: no symptoms reported Past Oxgpoxp-Uotjco-Syipzm Hx Immunizations Up To Date First/Initial COVID19 Vaccinat: NO Second COVID19 Vaccination Jay: NO Third COVID19 Vaccination Date: NO Seasonal Allergies Seasonal Allergies: No Past Medical History Surgery/Hospitalization HX: COPD; Chronic Back pain Surgeries: Yes (RT WRIST ; PERIUMBILICAL HERNIA REPAIR WITH MESH, PLASTIC SURG JESSIE HEAD) Abdominal, Appendectomy, Orthopedic Respiratory: Yes (TO DO SLEEP APNEA TEST) COPD Currently Using CPAP: No Currently Using BIPAP: No Cardiac: No Neurological: Yes (SEIZURES-- FORMER BOXER -1-2 MONTHS AGO NO MEDICATION) Seizure Disorder Genitourinary: No Gastrointestinal: Yes Abdominal Hernia Musculoskeletal: Yes Chronic Back Pain Endocrine: No HEENT: Yes (POOR DENTITION) Cancer: No Psychosocial: No Integumentary: No Blood Disorders: No Family Medical History No Pertinent Family Hx Physical Exam Vital Signs Vital Signs - First Documented 09/29/21 09/29/21 13:36 17:00 Temp 36.6 Pulse 97 Resp 17 B/P (MAP) 139/80 (99) Pulse Ox 97 O2 Delivery Room Air Capillary Refill : Height, Weight, BMI Height: 5'9.00" Weight: 200lbs. oz. 90.760835wp; 34.95 BMI Method:Stated General Appearance: No Apparent Distress, WD/WN HEENT: PERRL/EOMI, Other (left sided facial swelling, large with circular and globular type pf swelling over the left maxiallry area and is severely tender to touch, with induration of overlying skin, firm to soft in consistency, warm totouch,with erythema and bluish discoloration ) Neck: Full Range of Motion, Normal Inspection, Non Tender, Supple Respiratory: Chest Non Tender, Lungs Clear, Normal Breath Sounds Cardiovascular: Regular Rate, Rhythm, No Edema Focused Exam Lactate Level 09/29/21 14:21: Lactic Acid Level 1.70 Lactic Acid Level Laboratory Tests Test 09/29/21 14:21 Lactic Acid Level 1.70 MMOL/L (0.50-2.00) Progress/Results/Core Measures Suspected Sepsis SIRS Temperature: Pulse: Respiratory Rate: Laboratory Tests 09/29/21 14:00: White Blood Count 13.2H Blood Pressure / Mean: 09/29/21 14:21: Lactic Acid Level 1.70 Laboratory Tests 09/29/21 14:00: Creatinine 0.88, Platelet Count 258, Total Bilirubin 0.3 Results/Orders Lab Results Laboratory Tests Test 09/29/21 14:00 09/29/21 14:21 09/29/21 15:32 Range/Units White Blood Count 13.2 H 4.3-11.0 10^3/uL Red Blood Count 4.85 4.30-5.52 10^6/uL Hemoglobin 15.0 13.3-17.7 g/dL Hematocrit 43 40-54 % Mean Corpuscular Volume 88 80-99 fL Mean Corpuscular Hemoglobin 31 25-34 pg Mean Corpuscular Hemoglobin Concent 35 32-36 g/dL Red Cell Distribution Width 12.9 10.0-14.5 % Platelet Count 258 130-400 10^3/uL Mean Platelet Volume 9.3 9.0-12.2 fL Immature Granulocyte % (Auto) 0 % Neutrophils (%) (Auto) 70 42-75 % Lymphocytes (%) (Auto) 22 12-44 % Monocytes (%) (Auto) 6 0-12 % Eosinophils (%) (Auto) 2 0-10 % Basophils (%) (Auto) 0 0-10 % Neutrophils # (Auto) 9.1 H 1.8-7.8 10^3/uL Lymphocytes # (Auto) 2.9 1.0-4.0 10^3/uL Monocytes # (Auto) 0.8 0.0-1.0 10^3/uL Eosinophils # (Auto) 0.3 0.0-0.3 10^3/uL Basophils # (Auto) 0.0 0.0-0.1 10^3/uL Immature Granulocyte # (Auto) 0.0 0.0-0.1 10^3/uL Sodium Level 139 135-145 MMOL/L Potassium Level 3.7 3.6-5.0 MMOL/L Chloride Level 103 98-107 MMOL/L Carbon Dioxide Level 25 21-32 MMOL/L Anion Gap 11 5-14 MMOL/L Blood Urea Nitrogen 14 7-18 MG/DL Creatinine 0.88 0.60-1.30 MG/DL Estimat Glomerular Filtration Rate 103 BUN/Creatinine Ratio 16 Glucose Level 131 H 70-105 MG/DL Calcium Level 8.8 8.5-10.1 MG/DL Corrected Calcium 8.5 8.5-10.1 MG/DL Magnesium Level 2.2 1.6-2.4 MG/DL Total Bilirubin 0.3 0.1-1.0 MG/DL Aspartate Amino Transf (AST/SGOT) 15 5-34 U/L Alanine Aminotransferase (ALT/SGPT) 18 0-55 U/L Alkaline Phosphatase 62 40-136 U/L Total Protein 7.4 6.4-8.2 GM/DL Albumin 4.4 3.2-4.5 GM/DL Lactic Acid Level 1.70 0.50-2.00 MMOL/L Urine Color YELLOW Urine Clarity CLEAR Urine pH 5.5 5-9 Urine Specific [place] 1.010 L 1.016-1.022 Urine Protein NEGATIVE NEGATIVE Urine Glucose (UA) NEGATIVE NEGATIVE Urine Ketones NEGATIVE NEGATIVE Urine Nitrite NEGATIVE NEGATIVE Urine Bilirubin NEGATIVE NEGATIVE Urine Urobilinogen 0.2 < = 1.0 MG/DL Urine Leukocyte Esterase NEGATIVE NEGATIVE Urine RBC (Auto) TRACE-I H NEGATIVE Urine RBC RARE /HPF Urine WBC RARE /HPF Urine Squamous Epithelial Cells RARE /HPF Urine Crystals NONE /LPF Urine Bacteria NEGATIVE /HPF Urine Casts NONE /LPF Urine Mucus SMALL H /LPF Urine Culture Indicated NO Urine Opiates Screen POSITIVE H NEGATIVE Urine Oxycodone Screen NEGATIVE NEGATIVE Urine Methadone Screen NEGATIVE NEGATIVE Urine Propoxyphene Screen NEGATIVE NEGATIVE Urine Barbiturates Screen NEGATIVE NEGATIVE Ur Tricyclic Antidepressants Screen NEGATIVE NEGATIVE Urine Phencyclidine Screen NEGATIVE NEGATIVE Urine Amphetamines Screen NEGATIVE NEGATIVE Urine Methamphetamines Screen NEGATIVE NEGATIVE Urine Benzodiazepines Screen NEGATIVE NEGATIVE Urine Cocaine Screen NEGATIVE NEGATIVE Urine Cannabinoids Screen NEGATIVE NEGATIVE My Orders Orders - ROLAN CHASE MD Cbc With Automated Diff (09/29/21 13:50) Comprehensive Metabolic Panel (09/29/21 13:50) Drug Screen Stat (Urine) (09/29/21 13:50) Magnesium (09/29/21 13:50) Ua Culture If Indicated (09/29/21 13:50) Blood Culture (09/29/21 13:52) Lactic Acid Analyzer (09/29/21 13:52) Ketorolac Injection (Toradol Injection) (09/29/21 14:00) Clindamycin 600 Mg/50 Ml Ivpb (Cleocin P (09/29/21 14:00) Iohexol Injection (Omnipaque 350 Mg/Ml 1 (09/29/21 14:00) Received Contrast (Hold Metformin- Contr (09/29/21 14:00) Sodium Chloride Flush (Catheter Flush Sy (09/29/21 14:00) Ns (Ivpb) (Sodium Chloride 0.9% Ivpb Bag (09/29/21 14:00) Ct Maxillofacial W (09/29/21 13:50) Blood Culture (09/29/21 14:21) Ed Admission (Communication) (09/29/21 16:34) Medications Given in ED Vital Signs/I&O 09/29/21 09/29/21 13:36 17:00 Temp 36.6 Pulse 97 92 Resp 17 18 B/P (MAP) 139/80 (99) 141/82 Pulse Ox 97 O2 Delivery Room Air Room Air 09/30/21 00:00 Intake Total 50 ml Balance 50 ml Capillary Refill : Progress Note : Progress Note 1. FACIAL CELLULITIS : DENTAL ABSCESS - CT FACE: Small collections of phlegmon along the buccal surface of the maxilla and mandible on the left. The collection involving the maxilla may relate to a periapical lucency involving the left 1st maxillary bicuspid tooth. Numerous additional dental caries are seen throughout the teeth. Recommend dental consultation. Paranasal sinus disease, greatest in the left frontal sinus. Cellulitis involving the face on the left. - WBC is 13.2 with a left shift - Blood cultures sent - Clindamycin iv STAT in ER, with improvement seen in swelling size - Pt will need to be admitted for iv antibiotics and OMF consult Diagnostic Imaging Diagonstic Imaging: CT Plain Films/CT/US/NM/MRI: facial bones Comments [facility], [facility]. [place], [place] NAME: MELONY HENSLEY [facility] REC#: [id number] PT STATUS: REG ER : 1970 PHYSICIAN: ROLAN CHASE MD ADMIT DATE: 09/29/21/ER FS Draft Date of Exam:09/29/21 CT MAXILLOFACIAL W PROCEDURE: CT maxillofacial with contrast. TECHNIQUE: After intravenous administration of contrast, axial images were obtained through the face and reformatted into coronal and sagittal planes. Auto Exposure Controls were utilized during the CT exam to meet ALARA standards for radiation dose reduction. INDICATION: Facial swelling. COMPARISON: 08/08/2017. FINDINGS: Generalized soft tissue swelling is seen along the left face overlying the left mandible and maxilla. There is a small fluid and air collection tracking along the buccal surface of the body of the mandible on the left measuring approximately 0.3 cm in thickness. Numerous dental caries are seen involving the teeth. Periapical lucency is seen involving the left 1st maxillary bicuspid. A small fluid collection is seen adjacent to this area along the buccal surface measuring 0.3 cm. No well-formed fluid collection is seen in the soft tissues of the face. No evidence of acute fracture. Retained secretions are seen throughout the left frontal sinus with additional mucosal thickening in the remainder of the paranasal sinuses. The mastoid air cells are clear. The globes and orbits are symmetric and unremarkable. The included intracranial contents demonstrate no acute abnormality. IMPRESSION: 1. Small collections of phlegmon along the buccal surface of the maxilla and mandible on the left. The collection involving the maxilla may relate to a periapical lucency involving the left 1st maxillary bicuspid tooth. Numerous additional dental caries are seen throughout the teeth. Recommend dental consultation. 2. Paranasal sinus disease, greatest in the left frontal sinus. 3. Cellulitis involving the face on the left. Dictated on workstation # [id number] Dict: 09/29/21 1420 Trans: 09/29/21 1428 [id number] Interpreted by: ANTHONY CARRERA DO Electronically signed by: Departure Communication (Admissions) Time/Spoke to Admitting Phy: 15:[address] Phelan OMF consult will only be available tomorrow Impression Primary Impression: Facial cellulitis Additional Impression: Abscess of apex of dental root complicating chronic inflammation Disposition: 30 STILL A PATIENT Condition: Stable Admissions Decision to Admit Reason: Admit from ER (General) Decision to Admit/Date: Sep 30, 2021 Time/Decision to Admit Time: 14:45 Departure-Patient Inst. Referrals: HAROON DOBBINS MD (PCP) Primary Care Physician ROLAN CHASE MD Sep 29, 2021 13:44
[2021-09-29] MEDS ORDERED: NS 100 ML (IVPB) BAG IV ONE (14:00)
[2021-09-29] MEDS ORDERED: CLINDAMYCIN 600 MG/50 ML IVPB 50 ML IV ONE (14:00)
[2021-09-29] MEDS ORDERED: CATHETER FLUSH 10 ML SYR IV PRN (14:00)
[2021-09-29] MEDS ORDERED: HOLD METFORMIN - RECEIVED CONTRAST 20 ML VIAL IV SCH (14:00)
[2021-09-29] MEDS ORDERED: KETOROLAC 30 MG/ML VIAL IVP ONE (14:00)
[2021-09-29] MEDS ORDERED: IOHEXOL 350 MG/ML 100 ML (OMNIPAQUE 350) VIAL IV ONE (14:00)
[2021-09-29 14:16] LABS: BASOPHILS % (AUTO) 0 % (0-10); EOSINOPHILS # (AUTO) 0.3 10^3/uL (0.0-0.3); EOSINOPHILS % (AUTO) 2 % (0-10); HEMATOCRIT 43 % (40-54); LYMPHOCYTES # (AUTO) 2.9 10^3/uL (1.0-4.0); LYMPHOCYTES % (AUTO) 22 % (12-44); MEAN CORPUSCULAR HEMOGLOBIN 31 pg (25-34); MEAN CORPUSCULAR HGB CONC 35 g/dL (32-36); MEAN CORPUSCULAR VOLUME 88 fL (80-99); MEAN PLATELET VOLUME 9.3 fL (9.0-12.2); MONOCYTES # (AUTO) 0.8 10^3/uL (0.0-1.0); MONOCYTES % (AUTO) 6 % (0-12); NEUTROPHILS # (AUTO) 9.1 10^3/uL (1.8-7.8); NEUTROPHILS % (AUTO) 70 % (42-75); PLATELET COUNT 258 10^3/uL (130-400); WHITE BLOOD COUNT 13.2 10^3/uL (4.3-11.0)
--- NOTE | 2021-09-29 14:29 | Diagnostic Imaging Report ---
PROCEDURE: CT maxillofacial with contrast. TECHNIQUE: After intravenous administration of contrast, axial images were obtained through the face and reformatted into coronal and sagittal planes. Auto Exposure Controls were utilized during the CT exam to meet ALARA standards for radiation dose reduction. INDICATION: Facial swelling. COMPARISON: 08/08/2017. FINDINGS: Generalized soft tissue swelling is seen along the left face overlying the left mandible and maxilla. There is a small fluid and air collection tracking along the buccal surface of the body of the mandible on the left measuring approximately 0.3 cm in thickness. Numerous dental caries are seen involving the teeth. Periapical lucency is seen involving the left 1st maxillary bicuspid. A small fluid collection is seen adjacent to this area along the buccal surface measuring 0.3 cm. No well-formed fluid collection is seen in the soft tissues of the face. No evidence of acute fracture. Retained secretions are seen throughout the left frontal sinus with additional mucosal thickening in the remainder of the paranasal sinuses. The mastoid air cells are clear. The globes and orbits are symmetric and unremarkable. The included intracranial contents demonstrate no acute abnormality. IMPRESSION: 1. Small collections of phlegmon along the buccal surface of the maxilla and mandible on the left. The collection involving the maxilla may relate to a periapical lucency involving the left 1st maxillary bicuspid tooth. Numerous additional dental caries are seen throughout the teeth. Recommend dental consultation. 2. Paranasal sinus disease, greatest in the left frontal sinus. 3. Cellulitis involving the face on the left. Dictated by: Dictated on workstation # [id number]
[2021-09-29 14:36] LABS: BILIRUBIN,TOTAL 0.3 MG/DL (0.1-1.0); CALCIUM 8.8 MG/DL (8.5-10.1); CREATININE SERUM 0.88 MG/DL (0.60-1.30); MAGNESIUM 2.2 MG/DL (1.6-2.4); POTASSIUM 3.7 MMOL/L (3.6-5.0)
[2021-09-29 14:37] LABS: ALBUMIN 4.4 GM/DL (3.2-4.5); TOTAL PROTEIN 7.4 GM/DL (6.4-8.2)
[2021-09-29 15:47] LABS: BILIRUBIN,URINE NEGATIVE (NEGATIVE); CLARITY,URINE CLEAR; COLOR,URINE YELLOW; GLUCOSE, URINE (UA) NEGATIVE (NEGATIVE); KETONES,URINE NEGATIVE (NEGATIVE); LEUKOCYTE ESTERASE ,URINE NEGATIVE (NEGATIVE); NITRITE,URINE NEGATIVE (NEGATIVE); PH,URINE 5.5 (5-9); PROTEIN,URINE NEGATIVE (NEGATIVE)
[2021-09-29 15:51] LABS: BACTERIA,URINE NEGATIVE /HPF; RBC,URINE RARE /HPF; SQUAMOUS EPITHELIAL CELL,UR RARE /HPF; WBC,URINE RARE /HPF
[2021-09-29 15:56] LABS: AMPHETAMINE SCREEN, URINE NEGATIVE (NEGATIVE); BARBITURATE SCREEN URINE NEGATIVE (NEGATIVE); BENZODIAZEPINES SCREEN URINE NEGATIVE (NEGATIVE); CANNABINOID SCREEN, URINE NEGATIVE (NEGATIVE); COCAINE SCREEN URINE NEGATIVE (NEGATIVE); METHADONE STAT NEGATIVE (NEGATIVE); OPIATE SCREEN URINE POSITIVE (NEGATIVE); OXYCODONE STAT NEGATIVE (NEGATIVE); PROPOXYPHENE STAT NEGATIVE (NEGATIVE); TRICYCLIC ANTIDEPRESSANTS SCRE NEGATIVE (NEGATIVE)
[2021-09-29 18:15] VITALS: BP 128/82
[2021-09-29] MEDS ORDERED: ONDANSETRON 4 MG/2 ML (SDV) Z0FRAN IV PRN (18:30)
[2021-09-29] MEDS ORDERED: BISACODYL 10 MG SUPP (DULCOLAX) PR PRN (18:30)
[2021-09-29] MEDS ORDERED: KETOROLAC 15 MG/ML VIAL IV PRN (18:30)
[2021-09-29] MEDS ORDERED: ACETAMINOPHEN 325 MG TABLET PO PRN (18:30)
[2021-09-29] MEDS ORDERED: HYDROmorphone 2 MG/ML VIAL (DILAUDID) IVP PRN (18:30)
[2021-09-29] MEDS ORDERED: MELATONIN 3 MG TABLET PO PRN (18:30)
[2021-09-29] MEDS ORDERED: ONDANSETRON 4 MG (ZOFRAN) ORAL DISSOLVE TAB PO PRN (18:30)
[2021-09-29] MEDS ORDERED: polyethylene glycoL POWDER 17 GM (MIRALAX) PACK PO PRN (18:30)
[2021-09-29] MEDS ORDERED: ENOXAPARIN 40 MG/0.4 ML (LOVENOX) SYR SC SCH (18:30)
[2021-09-29] MEDS ORDERED: diphenhydrAMINE 50 MG/ML INJ (BENADRYL) IVP PRN (18:30)
[2021-09-29] MEDS ORDERED: diphenhydrAMINE 25 MG TAB (BENADRYL) PO PRN (18:30)
[2021-09-29] MEDS ORDERED: ANTACID SUSP 30 ML UDC (MYLANTA) PO PRN (18:30)
[2021-09-29] MEDS ORDERED: PIPERACILLIN SODIUM/TAZOBACTAM 4.5 GM in NS (IVPB) 100 ML IV NR (18:45)
--- NOTE | 2021-09-29 19:07 | History & Physical-Hospitalist ---
History of Present Illness HPI/Chief Complaint Chief complaint: Submandibular abscess History of present illness: This is a 51-year-old white male clinic patient of [facility] who has a past medical history of COPD who presents to the [place] ER with left facial swelling and pain. Patient reports the area worsened and he has a bad tooth. He will be given IV antibiotics and pain control and consult Dr. Boles in the morning. Source: patient, family, RN/MD Exam Limitations: no limitations Date Seen 09/29/21 Time Seen by a Provider: 19:00 Attending Physician Rodolfo Barth MD PCP Admitting Physician: Nidhi Phelan DO Attending Physician: Nidhi Phelan DO Referring Physician Date of Admission Sep 29, 2021 at 18:10 Home Medications & Allergies Home Medications Reviewed patient Home Medication Reconciliation performed by pharmacy medication reconciliations irrigation service technician and/or nursing. Patients Allergies have been reviewed. Allergies Allergies Coded Allergies Haloperidol Lactate (Verified Allergy, Unknown, BODY LOCKS UP, MUSCLES FREEZE, 07/14/21) haloperidol (Verified Allergy, Unknown, BODY LOCKS UP, MUSCLES FREEZE, 07/14/21) Past Dxlauft-Vqzdxk-Qfqkqn Hx Patient Social History Marrital Status: Employed/Student: employed Tobacco Use?: Yes Tobacco type used: Cigarettes Smoking Status: Current Everyday Smoker Smokeless Tobacco Frequency: Never a User Use of E-Cig and/or Vaping dev: No Use of E-Cig and/or Vaping Amilcar: Never a User Substance use?: No Alcohol Use?: Yes Alcohol Frequency: Rarely Pt feels they are or have been: No Immunizations Up To Date First/Initial COVID19 Vaccinat: none Second COVID19 Vaccination Jay: NO Tetanus Booster (TDap): More Than 5 Years Hepatitis A: No Seasonal Allergies Seasonal Allergies: No Current Status Advance Directives: No Communicates: Verbally Primary Language: Kenyan Preferred Spoken Language: Kenyan Is interpretation needed?: No Sensory deficits: Vision impairment Implanted or Applied Medical D: None Past Medical History Surgeries: Abdominal, Appendectomy, Orthopedic COPD Currently Using CPAP: No Currently Using BIPAP: No Seizure Disorder Abdominal Hernia Chronic Back Pain Blood Disorders: No Family Medical History No Pertinent Family Hx Review of Systems Constitutional: see HPI EENTM: other (Facial swelling) Respiratory: no symptoms reported Cardiovascular: no symptoms reported Gastrointestinal: no symptoms reported Genitourinary: no symptoms reported Musculoskeletal: no symptoms reported Skin: no symptoms reported Psychiatric/Neurological: No Symptoms Reported All Other Systems Reviewed Negative Unless Noted: Yes Physical Exam Physical Exam Vital Signs Vital Signs - First Documented 09/29/21 09/29/21 13:36 17:00 Temp 36.6 Pulse 97 Resp 17 B/P (MAP) 139/80 (99) Pulse Ox 97 O2 Delivery Room Air Capillary Refill : Less Than 3 Seconds Height, Weight, BMI Height: 5'9.00" Weight: 200lbs. oz. 90.273756wa; 34.85 BMI Method:Stated General Appearance: No Apparent Distress Eyes: Right Eye Normal Inspection, Right Eye PERRL HEENT: PERRL/EOMI, TMs Normal, Pharynx Normal, Moist Mucous Membranes, Other (Left-sided face swollen and erythematous and tenderness to palpation) Neck: Full Range of Motion, Normal Inspection, Non Tender Respiratory: Chest Non Tender, Lungs Clear, Normal Breath Sounds, No Accessory Muscle Use, No Respiratory Distress Cardiovascular: Regular Rate, Rhythm, No Edema, No Gallop, No JVD, No Murmur, Normal Peripheral Pulses Gastrointestinal: Normal Bowel Sounds, No Organomegaly, No Pulsatile Mass, Non Tender, Soft Back: Normal Inspection, No CVA Tenderness, No Vertebral Tenderness Extremity: Normal Capillary Refill, Normal Inspection, Normal Range of Motion, Non Tender, No Calf Tenderness, No Pedal Edema Neurologic/Psychiatric: Alert, Oriented x3, No Motor/Sensory Deficits, Normal Mood/Affect Skin: Normal Color, Warm/Dry Lymphatic: No Adenopathy Results Results/Procedures Labs Laboratory Tests 09/29/21 14:00 09/30/21 05:52 Patient resulted labs reviewed. Assessment/Plan Admission Diagnosis Assessment: Submandibular abscess Sepsis COPD Current smoker Seizure disorder Plan: IV antibiotics IV fluid Pain control Dr. Boles consult in the morning Admission Status: Inpatient Order (span 2 midnights) Reason for Inpatient Admission: Sepsis with facial abscess NIDHI PHLEAN 13, 2022 19:06
[2021-09-29] MEDS: NS IV 1000 ML 1,000 ML IV SCH (19:34)
[2021-09-29 20:00] VITALS: BP 135/82
[2021-09-29] MEDS: DOCUSATE SODIUM 100 MG (COLACE) CAP PO SCH (20:40)
[2021-09-29] MEDS: CLINDAMYCIN 600 MG/50 ML IVPB 50 ML IV SCH (21:33)
[2021-09-29] MEDS ORDERED: RT-ALBUTEROL SULF 2.5 MG/3 ML PRE-MIX VIAL INH PRN (22:00)
[2021-09-29 23:30] VITALS: BP 125/81
[2021-09-30] MEDS: PIPERACILLIN SODIUM/TAZOBACTAM 4.5 GM in NS (IVPB) 100 ML IV SCH ×2 (02:06→08:31)
[2021-09-30 03:40] VITALS: BP 128/83
[2021-09-30 06:13] LABS: BASOPHILS # (AUTO) 0.1 10^3/uL (0.0-0.1); BASOPHILS % (AUTO) 1 % (0-10); EOSINOPHILS # (AUTO) 0.4 10^3/uL (0.0-0.3); EOSINOPHILS % (AUTO) 4 % (0-10); HEMATOCRIT 39 % (40-54); HEMOGLOBIN 13.5 g/dL (13.3-17.7); LYMPHOCYTES # (AUTO) 2.1 10^3/uL (1.0-4.0); LYMPHOCYTES % (AUTO) 22 % (12-44); MEAN CORPUSCULAR HEMOGLOBIN 31 pg (25-34); MEAN CORPUSCULAR HGB CONC 34 g/dL (32-36); MEAN CORPUSCULAR VOLUME 90 fL (80-99); MEAN PLATELET VOLUME 9.3 fL (9.0-12.2); MONOCYTES # (AUTO) 0.8 10^3/uL (0.0-1.0); MONOCYTES % (AUTO) 8 % (0-12); NEUTROPHILS # (AUTO) 6.2 10^3/uL (1.8-7.8); NEUTROPHILS % (AUTO) 65 % (42-75); PLATELET COUNT 222 10^3/uL (130-400); WHITE BLOOD COUNT 9.6 10^3/uL (4.3-11.0)
[2021-09-30 06:34] LABS: ALBUMIN 3.6 GM/DL (3.2-4.5)
[2021-09-30 06:35] LABS: POTASSIUM 4.2 MMOL/L (3.6-5.0)
[2021-09-30 06:36] LABS: CALCIUM 8.4 MG/DL (8.5-10.1)
[2021-09-30 06:37] LABS: TOTAL PROTEIN 6.4 GM/DL (6.4-8.2)
[2021-09-30 06:39] LABS: BILIRUBIN,TOTAL 0.5 MG/DL (0.1-1.0)
[2021-09-30 06:41] LABS: CREATININE SERUM 0.89 MG/DL (0.60-1.30)
--- NOTE | 2021-09-30 06:55 | Progress Note - Hospitalist ---
Subjective HPI/CC On Admission Date Seen by Provider: Sep 30, 2021 Time Seen by Provider: 10:00 Chief complaint: Submandibular abscess History of present illness: This is a 51-year-old white male clinic patient of [facility] who has a past medical history of COPD who presents to the [place] ER with left facial swelling and pain. Patient reports the area worsened and he has a bad tooth. He will be given IV antibiotics and pain control and consult Dr. Boles in the morning. Focused Exam Lactate Level 09/29/21 14:21: Lactic Acid Level 1.70 Objective Exam Vital Signs Vital Signs Date Time Temp Pulse Resp B/P (MAP) Pulse Ox O2 Delivery O2 Flow Rate FiO2 09/30/21 08:00 Room Air 09/30/21 08:00 37.2 72 22 126/82 (97) 93 Capillary Refill : Less Than 3 Seconds Results/Procedures Lab Laboratory Tests 09/29/21 14:00 09/30/21 05:52 Patient resulted labs reviewed. HIEU WALTERS DO Sep 30, 2021 06:55
[2021-09-30] MEDS: CLINDAMYCIN 600 MG/50 ML IVPB 50 ML IV SCH ×2 (06:57→11:56)
[2021-09-30 08:00] VITALS: BP 126/82
[2021-09-30] MEDS ORDERED: RT--FLUTICASONE/SALMETEROL 232-14 (AIRDUO RespiCLICK) IH SCH (08:00)
[2021-09-30] MEDS: DOCUSATE SODIUM 100 MG (COLACE) CAP PO SCH (08:31)
[2021-09-30] MEDS: NS IV 1000 ML 1,000 ML IV SCH (09:28)
[2021-09-30] MEDS ORDERED: ACHD5005 PO (10:28)
[2021-09-30] MEDS ORDERED: AMOX1TAB12 PO (10:28)
[2021-09-30] MEDS ORDERED: CLIN-144 PO (10:30)
--- NOTE | 2021-09-30 10:30 | Discharge Summary ---
Discharge Summary Hospital Course Was the Problem List Reviewed?: Yes Problems/Dx: (1) Abscess of apex of dental root complicating chronic inflammation Status: Acute Hospital Course Date of Admission: Sep 29, 2021 at 18:10 Admission Diagnosis : Family Physician/Provider: Rodolfo Barth MD Date of Discharge: 09/30/21 Discharge Diagnosis: left submandibular abscess Hospital Course: Pt had a brief hospital course after he was admitted for left facial abscess. He did receive Zosyn and Clindamycin. The area improved. Dr. Boles assessed. He will have the tooth pulled and extracted at his office on . He will go home after Zosyn and Cleocin are initiated. I will add Cleocin to his Augmentin order that he had at home. He only took one dose before he came in and a small dose of Hydrocodone. Labs and Pending Lab Test: Laboratory Tests 09/29/21 14:00: White Blood Count 13.2H, Red Blood Count 4.85, Hemoglobin 15.0, Hematocrit 43, Mean Corpuscular Volume 88, Mean Corpuscular Hemoglobin 31, Mean Corpuscular Hemoglobin Concent 35, Red Cell Distribution Width 12.9, Platelet Count 258, Mean Platelet Volume 9.3, Immature Granulocyte % (Auto) 0, Neutrophils (%) (Auto) 70, Lymphocytes (%) (Auto) 22, Monocytes (%) (Auto) 6, Eosinophils (%) (Auto) 2, Basophils (%) (Auto) 0, Neutrophils # (Auto) 9.1H, Lymphocytes # (Auto) 2.9, Monocytes # (Auto) 0.8, Eosinophils # (Auto) 0.3, Basophils # (Auto) 0.0, Immature Granulocyte # (Auto) 0.0, Sodium Level 139, Potassium Level 3.7, Chloride Level 103, Carbon Dioxide Level 25, Anion Gap 11, Blood Urea Nitrogen 14, Creatinine 0.88, Estimat Glomerular Filtration Rate 103, BUN/Creatinine Ratio 16, Glucose Level 131H, Calcium Level 8.8, Corrected Calcium 8.5, Magnesium Level 2.2, Total Bilirubin 0.3, Aspartate Amino Transf (AST/SGOT) 15, Alanine Aminotransferase (ALT/SGPT) 18, Alkaline Phosphatase 62, Total Protein 7.4, Albumin 4.4 09/29/21 14:21: Lactic Acid Level 1.70 09/29/21 15:32: Urine Color YELLOW, Urine Clarity CLEAR, Urine pH 5.5, Urine Specific [place] 1.010L, Urine Protein NEGATIVE, Urine Glucose (UA) NEGATIVE, Urine Ketones NEGATIVE, Urine Nitrite NEGATIVE, Urine Bilirubin NEGATIVE, Urine Urobilinogen 0.2, Urine Leukocyte Esterase NEGATIVE, Urine RBC (Auto) TRACE-IH, Urine RBC RARE, Urine WBC RARE, Urine Squamous Epithelial Cells RARE, Urine Crystals NONE, Urine Bacteria NEGATIVE, Urine Casts NONE, Urine Mucus SMALLH, Urine Culture Indicated NO, Urine Opiates Screen POSITIVEH, Urine Oxycodone Screen NEGATIVE, Urine Methadone Screen NEGATIVE, Urine Propoxyphene Screen NEGATIVE, Urine Barbiturates Screen NEGATIVE, Ur Tricyclic Antidepressants Screen NEGATIVE, Urine Phencyclidine Screen NEGATIVE, Urine Amphetamines Screen NEGATIVE, Urine Methamphetamines Screen NEGATIVE, Urine Benzodiazepines Screen NEGATIVE, Urine Cocaine Screen NEGATIVE, Urine Cannabinoids Screen NEGATIVE 09/30/21 05:52: White Blood Count 9.6, Red Blood Count 4.36, Hemoglobin 13.5, Hematocrit 39L, Mean Corpuscular Volume 90, Mean Corpuscular Hemoglobin 31, Mean Corpuscular H emoglobin Concent 34, Red Cell Distribution Width 12.9, Platelet Count 222, Mean Platelet Volume 9.3, Immature Granulocyte % (Auto) 1, Neutrophils (%) (Auto) 65, Lymphocytes (%) (Auto) 22, Monocytes (%) (Auto) 8, Eosinophils (%) (Auto) 4, Basophils (%) (Auto) 1, Neutrophils # (Auto) 6.2, Lymphocytes # (Auto) 2.1, Monocytes # (Auto) 0.8, Eosinophils # (Auto) 0.4H, Basophils # (Auto) 0.1, Immature Granulocyte # (Auto) 0.1, Sodium Level 137, Potassium Level 4.2, Chloride Level 106, Carbon Dioxide Level 22, Anion Gap 9, Blood Urea Nitrogen 16, Creatinine 0.89, Estimat Glomerular Filtration Rate 103, BUN/Creatinine R atio 18, Glucose Level 111H, Calcium Level 8.4L, Corrected Calcium 8.7, Total Bilirubin 0.5, Aspartate Amino Transf (AST/SGOT) 13, Alanine Aminotransferase (ALT/SGPT) 19, Alkaline Phosphatase 45, Total Protein 6.4, Albumin 3.6 Home Meds Active Hydrocodone-Acetamin 5-325 mg (Hydrocodone/Acetaminophen) 5 Mg-325 Mg Tablet 1 Tab PO Q4H PRN Amox Tr-K Clv 875-125 mg Tab (Amoxicillin/Potassium Clav) 875 Mg-125 Mg Tablet 1 Each PO BID 7 Days HYDROcodone/APAP 5 MG/325 MG TAB (Acetaminophen/Hydrocodone Bitart) 1 Tab Tab 1 Tab PO Q6H PRN Reported Symbicort 160-4.5 Mcg Inhaler (Budesonide/Formoterol Fumarate) 10.2 Gm Hfa.aer.ad 2 Puff IH BID Albuterol Sulfate 2.5 Mg/3 Ml Vial.neb 2.5 Mg INH Assessment/Pt Instructions dr corona porter Discharge Planning: <30 minutes discharge planning Discharge Instructions Discharge Diet: No Restrictions Activity as Tolerated: Yes Discharge Physical Examination Vital Signs Vital Signs Date Time Temp Pulse Resp B/P (MAP) Pulse Ox O2 Delivery O2 Flow Rate FiO2 09/30/21 08:00 Room Air 09/30/21 08:00 37.2 72 22 126/82 (97) 93 General Appearance: No Apparent Distress, WD/WN Allergies: Coded Allergies: Haloperidol Lactate (Verified Allergy, Unknown, BODY LOCKS UP, MUSCLES FREEZE, 07/14/21) haloperidol (Verified Allergy, Unknown, BODY LOCKS UP, MUSCLES FREEZE, 07/14/21) Discharge Summary Date of Admission Sep 29, 2021 at 18:10 Date of Discharge Discharge Date: Sep 30, 2021 Admission Diagnosis Assessment: Submandibular abscess Sepsis COPD Current smoker Seizure disorder Plan: IV antibiotics IV fluid Pain control Dr. Boles consult in the morning HIEU WALTERS DO Sep 30, 2021 10:30
[2021-09-30 12:26] VITALS: BP 123/81
[2021-09-30 13:05] VITALS: BP 123/81
== END 2021-09-30 13:05 | disposition home or self-care (01) | DRG 872 ==
LOC: EDUNIT# 12:55 → ER FS 12:57 → 4TH 18:10
PROVIDERS: ADMIT Internal Medicine; ATTEND Internal Medicine
DX: A41.9 Sepsis, unspecified organism (principal); K12.2 Cellulitis and abscess of mouth; K04.7 Periapical abscess without sinus; J44.9 Chronic obstructive pulmonary disease, unspecified; F17.210 Nicotine dependence, cigarettes, uncomplicated; G40.909 Epilepsy, unspecified, not intractable, without status epilepticus; G89.29 Other chronic pain; M54.9 Dorsalgia, unspecified
CPT/HCPCS: 36415; 70487; 80053; 80306; 81000; 83605; 83735; 85025; 87040; 94640; 94760; Q9967

== ENCOUNTER 2021-11-13 13:39 | Emergency (ER) | payer SELFPAY ==
[~2021-11-13] VITALS: Ht 175 cm; Wt 95.0 kg
[~2021-11-13 13:39] MED LIST changes: +AMOX1TAB12 PO; +CLIN-144 PO
[2021-11-13 13:52] VITALS: BP 135/80
[2021-11-13] MEDS ORDERED: TETANUS & DIPHTHERIA TOX,ADULT 0.5 ML (TENIVAC) IM ONE (14:00)
[2021-11-13] MEDS ORDERED: TETANUS,DIPTH,PERTUSS P/F (BOOSTRIX) 0.5 ML VIAL IM ONE (14:15)
--- NOTE | 2021-11-13 14:17 | ED Upper Extremity ---
General Chief Complaint: Laceration Stated Complaint: LT HAND LAC Nursing Triage Note: Patient has presented to ER with cc of a left hand laceration, he cut his hand between his left thumb and index finger while working on a broken toliet. Source: patient History of Present Illness Date Seen by Provider: Nov 13, 2021 Time Seen by Provider: 13:50 Initial Comments 51-year-old right-handed male with history of COPD, chronic back pain, seizure disorder presented POV to ER with complaining of a cut to left hand while working on a broken toilet at his work. Patient has a laceration on the left hand palm between thumb and index finger without focal neurodeficit and other injuries. Last tetanus immunization is unknown. Onset: just prior to arrival Allergies and Home Medications Allergies Coded Allergies: Haloperidol Lactate (Verified Allergy, Unknown, BODY LOCKS UP, MUSCLES FREEZE, 07/14/21) haloperidol (Verified Allergy, Unknown, BODY LOCKS UP, MUSCLES FREEZE, 07/14/21) Patient Home Medication List Home Medication List Reviewed: Yes Albuterol Sulfate (Albuterol Sulfate) 2.5 Mg/3 Ml Vial.neb, 2.5 MG INH, (Reported) Entered as Reported by: LISA LAU on 07/21/19 174 Amoxicillin/Potassium Clav (Amox Tr-K Clv 875-125 mg Tab) 875 Mg-125 Mg Tablet, 1 EACH PO BID Prescribed by: HIEU WALTERS on 09/30/21 1028 Budesonide/Formoterol Fumarate (Symbicort 160-4.5 Mcg Inhaler) 10.2 Gm Hfa.aer.ad, 2 PUFF IH BID, (Reported) Entered as Reported by: LISA LAU on 07/21/19 1741 Clindamycin HCl (Clindamycin HCl) 300 Mg Capsule, 300 MG PO TID Prescribed by: HIEU WALTERS on 09/30/21 1030 Hydrocodone/Acetaminophen (Hydrocodone-Acetamin 5-325 mg) 5 Mg-325 Mg Tablet, 1 TAB PO Q4H PRN for PAIN-MODERATE (5-7) Prescribed by: HIEU WALTERS on 09/30/21 1029 Review of Systems Constitutional: no symptoms reported EENTM: no symptoms reported Respiratory: no symptoms reported Cardiovascular: no symptoms reported Gastrointestinal: no symptoms reported Genitourinary: no symptoms reported Musculoskeletal: see HPI Skin: see HPI Psychiatric/Neurological: No Symptoms Reported All Other Systems Reviewed Negative Unless Noted: Yes Past Lurikgu-Btmejd-Gkmghr Hx Patient Social History Tobacco Use?: No Use of E-Cig and/or Vaping dev: No Substance use?: No Alcohol Use?: No Pt feels they are or have been: No Immunizations Up To Date First/Initial COVID19 Vaccinat: none Second COVID19 Vaccination Jay: NO Third COVID19 Vaccination Date: NO Seasonal Allergies Seasonal Allergies: No Past Medical History Surgery/Hospitalization HX: COPD; Chronic Back pain Surgeries: Yes (RT WRIST ; PERIUMBILICAL HERNIA REPAIR WITH MESH, PLASTIC SURGERY HEAD) Abdominal, Appendectomy, Orthopedic Respiratory: Yes (TO DO SLEEP APNEA TEST) COPD Currently Using CPAP: No Currently Using BIPAP: No Cardiac: No Neurological: Yes (SEIZURES-- FORMER BOXER -1-2 MONTHS AGO NO MEDICATION) Seizure Disorder Genitourinary: No Gastrointestinal: Yes Abdominal Hernia Musculoskeletal: Yes Chronic Back Pain Endocrine: No HEENT: Yes (POOR DENTITION) Cancer: No Psychosocial: No Integumentary: No Blood Disorders: No Family Medical History No Pertinent Family Hx Physical Exam Vital Signs Vital Signs - First Documented 11/13/21 13:52 Temp 35.9 Pulse 85 Resp 18 B/P (MAP) 135/80 (98) Pulse Ox 96 Capillary Refill : Height, Weight, BMI Height: 5'9.00" Weight: 200lbs. oz. 90.477256lg; 31.00 BMI Method:Stated General Appearance: WD/WN, no apparent distress, obese HEENT: PERRL/EOMI, normal ENT inspection Neck: non-tender Cardiovascular: regular rate, rhythm, no edema Respiratory: chest non-tender, lungs clear, normal breath sounds, no respiratory distress, no accessory muscle use Back: normal inspection Shoulder: normal inspection Elbow/Forearm: normal inspection Wrist: Yes normal inspection Hand: Left, laceration (3 cm linear laceration in the above left palm between thumb and index finger without foreign body or active bleeding) Neurologic/Tendon: normal sensation, normal motor functions Neurologic/Psychiatric: no motor/sensory deficits, alert Procedures/Interventions Wound Location: Upper Extremities Wound Length (cm): 3 Wound's Depth, Shape: linear, sub Q Wound Explored: no foreign body removed Irrigated w/ Saline (ccs): 50 Betadine Prep?: No Anesthesia: 1% Lidocaine Volume Anesthetic (ccs): 10 Wound Debrided: None Suture: Prolene Suture Size: 4-0 Number of Sutures: 3 Sterile Dressing Applied?: Yes Progress/Results/Core Measures Results/Orders My Orders Orders - PERICO FRANCOIS MD Tetanus/Diphtheria Inj (Adult) (Tenivac (11/13/21 14:00) Dipht,Pertuss(Acell),Tet Adult (Boostrix (11/13/21 14:15) Vital Signs/I&O 11/13/21 13:52 Temp 35.9 Pulse 85 Resp 18 B/P (MAP) 135/80 (98) Pulse Ox 96 Blood Pressure Mean: 98 Progress Progress Note : Progress Note Evaluation of patient in ER showed 51-year-old right-handed male patient with laceration of left palm. 3 sutures was applied and patient advised to follow-up with his primary care physician or return to ER in 10 days for suture removal. Patient advised to take [id number] Tylenol and ibuprofen as needed for pain. Departure Impression Primary Impression: Laceration of left hand Qualified Codes: S61.412A - Laceration without foreign body of left hand, initial encounter Disposition: 01 HOME, SELF-CARE Condition: Improved Departure-Patient Inst. Decision time for Depature: 14:16 Referrals: SELFHAROON MD (PCP) Primary Care Physician Patient Instructions: Wound Care (DC), Laceration Repair With Stitches ED Add. Discharge Instructions: Keep wound clean and dry Suture removal in 10 days May take Tylenol and ibuprofen as needed for pain All discharge instructions reviewed with patient and/or family. Voiced understanding. PERICO FRANCOIS MD Nov 13, 2021 14:17
== END 2021-11-13 14:21 | disposition home or self-care (01) ==
LOC: EDUNIT# 13:39 → ER FS 13:40
DX: S61.412A Laceration without foreign body of left hand, initial encounter (principal); Z23 Encounter for immunization; Z28.310 Unvaccinated for COVID-19; W45.8XXA Other foreign body or object entering through skin, initial encounter; Y92.59 Other trade areas as the place of occurrence of the external cause; Y99.0 Civilian activity done for income or pay
CPT/HCPCS: 12001; 90715

== ENCOUNTER 2021-11-16 14:08 | Emergency (ER) | payer SELFPAY ==
[~2021-11-16] VITALS: Ht 175 cm; Wt 105.6 kg
[2021-11-16 14:17] VITALS: BP 151/96
--- NOTE | 2021-11-16 14:21 | ED General ---
General Stated Complaint: LEFT HAND WOUND CHECK Source of Information: Patient Exam Limitations: No Limitations History of Present Illness Date Seen by Provider: Nov 16, 2021 Time Seen by Provider: 14:10 Initial Comments 51yoM that was seen in the ER about 3 days ago after cutting his left hand. Got three stitches and was told to get them out in roughly 10 days. He says they are swollen and he is worried they may need more stitches. Denies any fever, drainage, redness spreading up his arm, or any other concerns. Allergies and Home Medications Allergies Coded Allergies: Haloperidol Lactate (Verified Allergy, Unknown, BODY LOCKS UP, MUSCLES FREEZE, 07/14/21) haloperidol (Verified Allergy, Unknown, BODY LOCKS UP, MUSCLES FREEZE, 07/14/21) Patient Home Medication List Home Medication List Reviewed: Yes Albuterol Sulfate (Albuterol Sulfate) 2.5 Mg/3 Ml Vial.neb, 2.5 MG INH, (Reported) Entered as Reported by: LISA LAU on 07/21/19 174 Amoxicillin/Potassium Clav (Amox Tr-K Clv 875-125 mg Tab) 875 Mg-125 Mg Tablet, 1 EACH PO BID Prescribed by: HIEU WALTERS on 09/30/21 1028 Budesonide/Formoterol Fumarate (Symbicort 160-4.5 Mcg Inhaler) 10.2 Gm Hfa.aer.ad, 2 PUFF IH BID, (Reported) Entered as Reported by: LSIA LAU on 07/21/19 1741 Clindamycin HCl (Clindamycin HCl) 300 Mg Capsule, 300 MG PO TID Prescribed by: HIEU WALTERS on 09/30/21 1030 Hydrocodone/Acetaminophen (Hydrocodone-Acetamin 5-325 mg) 5 Mg-325 Mg Tablet, 1 TAB PO Q4H PRN for PAIN-MODERATE (5-7) Prescribed by: HIEU WALTERS on 09/30/21 1029 Review of Systems Review of Systems Constitutional: No fever EENTM: No blurred vision Respiratory: No cough Cardiovascular: No chest pain Gastrointestinal: No abdominal pain Genitourinary: no symptoms reported Musculoskeletal: no symptoms reported Skin: see HPI Psychiatric/Neurological: No Symptoms Reported Hematologic/Lymphatic: No Symptoms Reported Immunological/Allergic: no symptoms reported All Other Systems Reviewed Negative Unless Noted: Yes Past Ebmzsfp-Neiebn-Gyklsm Hx Patient Social History Tobacco Use?: Yes Tobacco type used: Cigarettes Immunizations Up To Date First/Initial COVID19 Vaccinat: none Second COVID19 Vaccination Jay: NO Third COVID19 Vaccination Date: NO Seasonal Allergies Seasonal Allergies: No Past Medical History Surgery/Hospitalization HX: COPD; Chronic Back pain Surgeries: Yes (RT WRIST ; PERIUMBILICAL HERNIA REPAIR WITH MESH, PLASTIC SURGERY HEAD) Abdominal, Appendectomy, Orthopedic Respiratory: Yes (TO DO SLEEP APNEA TEST) COPD Currently Using CPAP: No Currently Using BIPAP: No Cardiac: No Neurological: Yes (SEIZURES-- FORMER BOXER -1-2 MONTHS AGO NO MEDICATION) Seizure Disorder Genitourinary: No Gastrointestinal: Yes Abdominal Hernia Musculoskeletal: Yes Chronic Back Pain Endocrine: No HEENT: Yes (POOR DENTITION) Cancer: No Psychosocial: No Integumentary: No Blood Disorders: No Family Medical History No Pertinent Family Hx Physical Exam Vital Signs Capillary Refill : Height, Weight, BMI Height: 5'9.00" Weight: 200lbs. oz. 90.238359ar; 31.00 BMI Method:Stated General Appearance: No Apparent Distress, WD/WN Eyes: Bilateral Eye Normal Inspection HEENT: PERRL/EOMI, Normal ENT Inspection, Pharynx Normal Neck: Full Range of Motion, Normal Inspection, Non Tender, Supple Respiratory: Chest Non Tender, Lungs Clear, Normal Breath Sounds, No Accessory Muscle Use, No Respiratory Distress Cardiovascular: Regular Rate, Rhythm, Normal Peripheral Pulses Gastrointestinal: Normal Bowel Sounds, Non Tender, Soft; No Guarding Back: Normal Inspection Extremity: Normal Capillary Refill, Normal Range of Motion, Non Tender, No Calf Tenderness, Other (Left palm with 3 stitches still intact, the wound is healing well, there is some swelling of the left hand, but no pain along the flexor tendons, no pain with passive extension of the fingers, no significant redness or drainage) Neurologic/Psychiatric: Alert, No Motor/Sensory Deficits, Normal Mood/Affect Skin: Normal Color, Warm/Dry Lymphatic: No Adenopathy Procedures/Interventions Suture Size: 4-0 Progress/Results/Core Measures Suspected Sepsis SIRS Temperature: Pulse: Respiratory Rate: Blood Pressure / Mean: Results/Orders Vital Signs/I&O Capillary Refill : Progress Note : Progress Note 51-year-old male with above history coming in for wound check. ABCs were intact and vitals were stable on presentation. There is some swelling in his hand, but he shows no signs of flexor tenosynovitis. His motor exam and neuro exam is normal otherwise. There is no significant redness or drainage that would be concerning for infection. I do notice the swelling, it is possible there is early infection developing. We will put on antibiotics preventatively at this point. Otherwise he should get the stitches out as planned after 10 total days. Departure Impression Primary Impression: Visit for wound check Disposition: HOME, SELF-CARE Condition: Stable Departure-Patient Inst. Decision time for Depature: 14:23 Referrals: SELFHAROON MD (PCP/Family) Primary Care Physician Patient Instructions: Wound Care (DC) Add. Discharge Instructions: It does not appear infected, and the swelling is pretty typical after the injury. Try to keep it elevated. We will put you on some antibiotics preventatively at this point. Plan to get the stitches out 10 days after they were initially placed. He can gently range your fingers, but do not do any significant exercises or grabbing anything with it. Scripts Cephalexin (Cephalexin) 500 Mg Tablet 500 MG PO QID for 7 Days, #28 TAB Prov: MAYO AIKEN MD 11/16/21 Naproxen (Naproxen) 250 Mg Tablet 250 MG PO BID for 5 Days, #10 TAB Prov: MAYO AIKEN MD 11/16/21 MAYO AIKEN MD Nov 16, 2021 14:21
[2021-11-16] MEDS ORDERED: NAPR-1088 PO (14:24)
[2021-11-16] MEDS ORDERED: CEPH500T PO (14:24)
== END 2021-11-16 14:26 | disposition home or self-care (01) ==
LOC: EDUNIT# 14:08 → ER FS 14:11
DX: Z48.00 Encounter for change or removal of nonsurgical wound dressing (principal); Z28.310 Unvaccinated for COVID-19
CPT/HCPCS: 99281

== ENCOUNTER 2022-07-25 17:35 | Emergency (ER) | payer SELFPAY ==
[~2022-07-25 17:35] MED LIST changes: +CEPH500T PO; +NAPR-1088 PO
[2022-07-25] MEDS ORDERED: TETANUS,DIPTH,PERTUSS P/F (BOOSTRIX) 0.5 ML VIAL IM ONE (17:45)
[2022-07-25] MEDS ORDERED: TETRACAINE 0.5% OPHTH SOLN 4 ML BTL (SINGLE DOSE ONLY) OU ONE (17:45)
[2022-07-25] MEDS ORDERED: FLUORESCEIN (FLUOR-I-STRIPS) 1 MG STRP OU ONE (17:45)
--- NOTE | 2022-07-25 17:48 | ED Integumentary General ---
General Stated Complaint: FACE CHEMICAL EXPOSURE Source: patient Exam Limitations: no limitations History of Present Illness Date Seen by Provider: Jul 25, 2022 Time Seen by Provider: 17:37 Initial Comments 51-year-old male with past medical history of hypertension and COPD coming in after he was trying to unclog a drain in his house, used Drano, then later opened a pipe and it sprayed onto his face. He got his eyes closed, and he states his eyes themselves do not hurt, and he does not believe any got in it. He washed his face immediately with water, vinegar, and milk later. He states the burning on the skin around his eyes is significant. His tetanus is not up-to-date within the past 10 years. He is otherwise denying any other acute complaints. Allergies and Home Medications Allergies Coded Allergies: Haloperidol Lactate (Verified Allergy, Unknown, BODY LOCKS UP, MUSCLES FREEZE, 07/14/21) haloperidol (Verified Allergy, Unknown, BODY LOCKS UP, MUSCLES FREEZE, 07/14/21) Patient Home Medication List Home Medication List Reviewed: Yes Albuterol Sulfate (Albuterol Sulfate) 2.5 Mg/3 Ml Vial.neb, 2.5 MG INH, (Report ed) Entered as Reported by: LISA LAU on 07/21/19 174 Amoxicillin/Potassium Clav (Amox Tr-K Clv 875-125 mg Tab) 875 Mg-125 Mg Tablet, 1 EACH PO BID Prescribed by: HIEU WALTERS on 09/30/21 1028 Budesonide/Formoterol Fumarate (Symbicort 160-4.5 Mcg Inhaler) 10.2 Gm Hfa.aer.ad, 2 PUFF IH BID, (Reported) Entered as Reported by: LISA LAU on 07/21/19 1741 Cephalexin (Cephalexin) 500 Mg Tablet, 500 MG PO QID Prescribed by: MAYO AIKEN on 11/16/21 1424 Clindamycin HCl (Clindamycin HCl) 300 Mg Capsule, 300 MG PO TID Prescribed by: HIEU WALTERS on 09/30/21 1030 Hydrocodone/Acetaminophen (Hydrocodone-Acetamin 5-325 mg) 5 Mg-325 Mg Tablet, 1 TAB PO Q4H PRN for PAIN-MODERATE (5-7) Prescribed by: HIEU WALTERS on 09/30/21 1029 Hydrocodone/Acetaminophen (Hydrocodone-Acetamin 5-325 mg) 5 Mg-325 Mg Tablet, 1 TAB PO Q6H PRN for PAIN-MODERATE (5-7) Prescribed by: MAYO AIKEN on 07/25/22 1751 Naproxen (Naproxen) 250 Mg Tablet, 250 MG PO BID Prescribed by: MAYO AIKEN on 11/16/21 1424 Review of Systems Review of Systems Constitutional: No fever EENTM: see HPI Respiratory: no symptoms reported Cardiovascular: no symptoms reported Gastrointestinal: no symptoms reported Genitourinary: no symptoms reported Musculoskeletal: no symptoms reported Past Libfcvn-Gmiciq-Mmmezi Hx Patient Social History Tobacco Use?: Yes Tobacco type used: Cigarettes Immunizations Up To Date First/Initial COVID19 Vaccinat: none Second COVID19 Vaccination Jay: NO Third COVID19 Vaccination Date: NO Seasonal Allergies Seasonal Allergies: No Past Medical History Surgery/Hospitalization HX: COPD; Chronic Back pain Surgeries: Yes (RT WRIST ; PERIUMBILICAL HERNIA REPAIR WITH MESH, PLASTIC SURGERY HEAD) Abdominal, Appendectomy, Orthopedic Respiratory: Yes (TO DO SLEEP APNEA TEST) COPD Currently Using CPAP: No Currently Using BIPAP: No Cardiac: No Neurological: Yes (SEIZURES-- FORMER BOXER -1-2 MONTHS AGO NO MEDICATION) Seizure Disorder Genitourinary: No Gastrointestinal: Yes Abdominal Hernia Musculoskeletal: Yes Chronic Back Pain Endocrine: No HEENT: Yes (POOR DENTITION) Cancer: No Psychosocial: No Integumentary: No Blood Disorders: No Family Medical History No Pertinent Family Hx Physical Exam Vital Signs Vital Signs - First Documented 07/25/22 17:40 Temp 36.2 Pulse 81 Resp 16 B/P (MAP) 139/97 (111) Pulse Ox 95 O2 Delivery Room Air Capillary Refill : General Appearance: WD/WN, no apparent distress HEENT: PERRL/EOMI, normal ENT inspection, TMs normal, pharynx normal Neck: non-tender, full range of motion, supple, normal inspection Cardiovascular: regular rate, rhythm, no edema, no murmur Respiratory: chest non-tender, lungs clear, normal breath sounds, no respiratory distress, no accessory muscle use Gastrointestinal: normal bowel sounds, non tender, soft; No distended, No guarding, No rebound Back: normal inspection Extremities: normal range of motion, non-tender, normal inspection, no pedal edema, no calf tenderness, normal capillary refill Neurologic/Psychiatric: no motor/sensory deficits, alert, normal mood/affect Skin: warm/dry, other (Erythema periorbital, on his forehead, and left ear, skin is all intact however with no blistering, normal conjunctive a) Procedures/Interventions Suture Size: 4-0 Progress/Results/Core Measures Results/Orders My Orders Orders - MAYO AIKEN MD Dipht,Pertuss(Acell),Tet Adult (Boostrix (07/25/22 17:45) Oxycodone Immediate Rel Tablet (Oxyir Ta (07/25/22 17:45) Tetracaine 0.5% Ophth Vandana Sdv (Tetracai (07/25/22 17:45) Fluorescein Strips (Yjlcd-N-Pbudwn) (07/25/22 17:45) Rx-Hydrocodone/Apap 5-325 Mg (Rx-Vicodin (07/25/22 18:00) Medications Given in ED Current Medications Medications Dose Ordered Sig/Everardo Route Start Time Stop Time Status Last Admin Dose Admin Acetaminophen/ Hydrocodone Bitart 1 ea Q6H PRN PO 07/25/22 18:00 07/25/22 18:05 1 EA Diphtheria/ Tetanus/Acell Pertussis 0.5 ml ONCE ONCE IM 07/25/22 17:45 07/25/22 17:46 DC 07/25/22 18:01 0.5 ML Fluorescein Sodium 1 mg ONCE ONCE OU 07/25/22 17:45 07/25/22 17:46 DC 07/25/22 18:05 1 MG Oxycodone HCl 5 mg ONCE ONCE PO 07/25/22 17:45 07/25/22 17:46 DC 07/25/22 18:04 5 MG Tetracaine HCl 4 ml ONCE ONCE OU 07/25/22 17:45 07/25/22 17:46 DC 07/25/22 18:05 4 ML Vital Signs/I&O 07/25/22 17:40 Temp 36.2 Pulse 81 Resp 16 B/P (MAP) 139/97 (111) Pulse Ox 95 O2 Delivery Room Air Progress Progress Note : Progress Note 51-year-old male with above history coming in after exposure to Drano on his face. ABCs were intact and vitals were stable on presentation. The patient is absolutely sure he got his eyes closed in time and did not get any in his eyes. He is having no eye pain at all which would fit that. The patient flushed his skin immediately after it happened. Immediately on arrival here, we did have him continue to flush it with water for 10 minutes with his face and eyes. I then did a fluorescein exam showing no obvious injury on his conjunctive. Tdap was updated today. He was given oxycodone here and will be sent home with a prescription for hydrocodone. I discussed that this will likely be a bad burn, but he does not have any blistering, and its very superficial over a small portion of his face. I believe he is otherwise stable for discharge with outpatient follow-up. He was sent home with strict return precautions Departure Impression Primary Impression: Chemical burn Disposition: HOME, SELF-CARE Condition: Stable Departure-Patient Inst. Decision time for Depature: 18:12 Referrals: SELFHAROON MD (PCP/Family) Primary Care Physician Patient Instructions: Minor Skin Esquivel ED Add. Discharge Instructions: Go home and take a shower to be sure that you do not have any on your skin anywhere else. Wash your clothes immediately as well. Think of this like a very bad sunburn on your face and how you treat it. The pain will likely get better in the next couple of days. Take hydrocodone as needed for pain or ibuprofen. You will use the erythromycin antibiotic ointment around your eyes twice a day for the next week. You can get some in your eye as well, and that is okay, as this is very safe to go in the eyes. Follow-up with your regular doctor if things are not improving. Scripts Erythromycin Base (Erythromycin Opthalmic Ointment) 5 Mg/Gram (0.5 %) Oint...g. 0 OP Q12H for 7 Days, #1 EA 1/2 inch Prov: MAYO AIKEN MD 07/25/22 Hydrocodone/Acetaminophen (Hydrocodone-Acetamin 5-325 mg) 5 Mg-325 Mg Tablet 1 TAB PO Q6H PRN for PAIN-MODERATE (5-7) for 3 Days, #12 TAB Prov: MAYO AIKEN MD 07/25/22 Work/School Note: Work Release Form Date Seen in the Emergency Department: Jul 25, 2022 Return to Work: Jul 27, 2022 Restrictions: No Restrictions MAYO AIKEN MD Jul 25, 2022 17:48
[2022-07-25] MEDS ORDERED: ACHD5005 PO (17:51)
[2022-07-25] MEDS ORDERED: ERYT1OIN6 OP (18:13)
[2022-07-25 18:25] VITALS: BP 139/97
== END 2022-07-25 18:26 | disposition home or self-care (01) ==
LOC: EDUNIT# 17:35 → ER FS 17:37
DX: T20.56XA Corrosion of first degree of forehead and cheek, initial encounter (principal); T26.5 Corrosion of eyelid and periocular area; T20.512A Corrosion of first degree of left ear [any part, except ear drum], initial encounter; T54.3X1A Toxic effect of corrosive alkalis and alkali-like substances, accidental (unintentional), initial encounter; F17.210 Nicotine dependence, cigarettes, uncomplicated; Z23 Encounter for immunization; Y92.009 Unspecified place in unspecified non-institutional (private) residence as the place of occurrence of the external cause
CPT/HCPCS: 90715; 99284

== ENCOUNTER 2022-10-21 20:53 | Emergency (ER) | payer OTHER ==
[~2022-10-21] VITALS: Ht 175.2 cm; Wt 98.1 kg
[~2022-10-21 20:53] MED LIST changes: +ERYT1OIN6 OP
[2022-10-21] MEDS ORDERED: FLUORESCEIN (FLUOR-I-STRIPS) 1 MG STRP OU ONE (21:15)
[2022-10-21] MEDS ORDERED: TETRACAINE 0.5% OPHTH SOLN 4 ML BTL (SINGLE DOSE ONLY) OU ONE (21:15)
[2022-10-21] MEDS ORDERED: RX-TOBRAMYCIN (TOBREX) 0.3% OP OINT 3.5 GM TUBE OU STA (21:44)
--- NOTE | 2022-10-21 21:54 | ED EENT ---
History of Present Illness General Chief Complaint: Eye Problems Stated Complaint: R EYE IRRITATION Nursing Triage Note: Pt presents per POV accompanied by female ambulating to ED 2 reporting eye irritation for 24 hrs after debris blew into eye from a vent. Pt states it was dirt or dust and he kept rubbing eye then irrigated but remains light & air sensitive with pain. Source: patient History of Present Illness Date Seen by Provider: Oct 21, 2022 Time Seen by Provider: 21:18 Initial Comments 52-year-old male presenting with complaints of right eye pain. He states that he had some dust and debris fly into his eye from a vent in a fan yesterday. He had irrigated the eye but he had also rubbed it previously. It is very sensitive to light and air movement. He has normal vision out of it other than he does have a lot of tearing. Since the pain was not significantly better tonight he came to the emergency department. He had been trying to patch it at home with what he had access to. He denies any other injuries. Timing/Duration: abrupt, yesterday Severity: severe Location: eye (R) Prearrival Treatment: over the counter meds Modifying Factors: Worse With Other (light and air movement makes it hurt) Associated Symptoms: No change in hearing, No cough, No drooling, No ear drainage, No facial pain/swelling, No fever, No malaise, No nasal congestion/drainage, No poor fluid intake, No poor solids intake, No sinus infection, No sore throat, No tooth pain, No voice change Allergies and Home Medications Allergies Coded Allergies: Haloperidol Lactate (Verified Allergy, Unknown, BODY LOCKS UP, MUSCLES FREEZE, 07/14/21) haloperidol (Verified Allergy, Unknown, BODY LOCKS UP, MUSCLES FREEZE, 07/14/21) Patient Home Medication List Home Medication List Reviewed: Yes Albuterol Sulfate (Albuterol Sulfate) 2.5 Mg/3 Ml Vial.neb, 2.5 MG INH, (Reported) Entered as Reported by: LISA LAU on 07/21/191740 Budesonide/Formoterol Fumarate (Symbicort 160-4.5 Mcg Inhaler) 10.2 Gm Hfa.aer.ad, 2 PUFF IH BID, (Reported) Entered as Reported by: LISA LAU on 07/21/191740 Meclizine HCl (Meclizine HCl) 12.5 Mg Tablet, 12.5 MG PO Q6H PRN for DIZZINESS, (Reported) Entered as Reported by: SHAWN CABRERA on 10/21/222234 Last Action: New Order Discontinued Medications Amoxicillin/Potassium Clav (Amox Tr-K Clv 875-125 mg Tab) 875 Mg-125 Mg Tablet, 1 EACH PO BID Discontinued Reason: Referral/FU Appt-Addtl Prescribed by: HIEU WALTERS on 09/30/21 1028 Last Action: Discontinued Cephalexin (Cephalexin) 500 Mg Tablet, 500 MG PO QID Discontinued Reason: Referral/FU Appt-Addtl Prescribed by: MAYO AIKEN on 11/16/21 1424 Last Action: Discontinued Clindamycin HCl (Clindamycin HCl) 300 Mg Capsule, 300 MG PO TID Discontinued Reason: Referral/FU Appt-Addtl Prescribed by: HIEU WALTERS on 09/30/21 1030 Last Action: Discontinued Erythromycin Base (Erythromycin Opthalmic Ointment) 5 Mg/Gram (0.5 %) Oint...g., 0 OP Q12H Discontinued Reason: Referral/FU Appt-Addtl Prescribed by: MAYO AIKEN on 07/25/22 1813 Last Action: Discontinued Hydrocodone/Acetaminophen (Hydrocodone-Acetamin 5-325 mg) 5 Mg-325 Mg Tablet, 1 TAB PO Q4H PRN for PAIN-MODERATE (5-7) Discontinued Reason: Referral/FU Appt-Addtl Prescribed by: HIEU WALTERS on 09/30/21 1029 Last Action: Discontinued Hydrocodone/Acetaminophen (Hydrocodone-Acetamin 5-325 mg) 5 Mg-325 Mg Tablet, 1 TAB PO Q6H PRN for PAIN-MODERATE (5-7) Discontinued Reason: Referral/FU Appt-Addtl Prescribed by: MAYO AIKEN on 07/25/22 1751 Last Action: Discontinued Naproxen (Naproxen) 250 Mg Tablet, 250 MG PO BID Discontinued Reason: Referral/FU Appt-Addtl Prescribed by: MAYO AIKEN on 11/16/21 1424 Last Action: Discontinued Review of Systems Review of Systems Constitutional: No chills, No fever Eyes: See HPI Ears: No Symptoms Reported Nose: no symptoms reported Mouth: no symptoms reported Throat: no symptoms reported Respiratory: no symptoms reported Cardiovascular: no symptoms reported Gastrointestinal: no symptoms reported Musculoskeletal: no symptoms reported Skin: no symptoms reported Past Ytbttjf-Obhbnw-Namjkl Hx Patient Social History Tobacco Use?: Yes Tobacco type used: Cigarettes Smoking Status: Current Everyday Smoker Use of E-Cig and/or Vaping dev: Unable to obtain Substance use?: No Alcohol Use?: Yes Alcohol type: Beer Alcohol Frequency: Once in a while Pt feels they are or have been: No Immunizations Up To Date First/Initial COVID19 Vaccinat: none Second COVID19 Vaccination Jay: none Third COVID19 Vaccination Date: none Seasonal Allergies Seasonal Allergies: No Past Medical History Surgery/Hospitalization HX: COPD; Chronic Back pain, HTN, Vertigo, Appendectomy, Plastic surgery head/dog bites, Umbilical-Ventral hernia, Wrist surgery Surgeries: Yes (RT WRIST ; PERIUMBILICAL HERNIA REPAIR WITH MESH, PLASTIC SURGERY HEAD) Abdominal, Appendectomy, Orthopedic Respiratory: Yes (TO DO SLEEP APNEA TEST) COPD Currently Using CPAP: No Currently Using BIPAP: No Cardiac: No Neurological: Yes (SEIZURES-- FORMER BOXER -1-2 MONTHS AGO NO MEDICATION) Seizure Disorder Genitourinary: No Gastrointestinal: Yes Abdominal Hernia Musculoskeletal: Yes Chronic Back Pain Endocrine: No HEENT: Yes (POOR DENTITION) Cancer: No Psychosocial: No Integumentary: No Blood Disorders: No Family Medical History No Pertinent Family Hx Physical Exam Vital Signs Vital Signs - First Documented 10/21/22 21:00 Temp 36.9 Pulse 72 Resp 16 B/P (MAP) 125/82 (96) Pulse Ox 98 O2 Delivery Room Air Height, Weight, BMI Height: 5'9.00" Weight: 200lbs. oz. 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 2 drops were applied to help with anesthetic effect. Then fluorescein dye was applied and examination under black light with magnification performed. There was superficial abrasion and area of conjunctival inflammation on the lateral aspect of the right eye. No residual foreign body visualized. Suture Size: 4-0 Progress/Results/Core Measures Results/Orders My Orders Orders - BEV MONTENEGRO MD Tetracaine 0.5% Ophth Vandana Sdv (Tetracai (10/21/22 21:15) Fluorescein Strips (Rsfqd-P-Vkkigl) (10/21/22 21:15) Rx-Tobramycin Ophth Oint (Rx-Tobrex Opht (10/21/22 21:44) Rx-Hydrocodone/Apap 5-325 Mg (Rx-Vicodin (10/21/22 21:45) Medications Given in ED Current Medications Medications Dose Ordered Sig/Everardo Route Start Time Stop Time Status Last Admin Dose Admin Acetaminophen/ Hydrocodone Bitart 1 ea Q6H PRN PO 10/21/22 21:45 10/21/22 22:04 DC 10/21/22 21:53 1 EA Fluorescein Sodium 1 mg ONCE ONCE OU 10/21/22 21:15 10/21/22 21:16 DC 10/21/22 21:22 1 MG Tetracaine HCl 4 ml ONCE ONCE OU 10/21/22 21:15 10/21/22 21:16 DC 10/21/22 21:22 4 ML Vital Signs/I&O 10/21/22 10/21/22 21:00 22:00 Temp 36.9 36.9 Pulse 72 72 Resp 16 16 B/P (MAP) 125/82 (96) 125/82 Pulse Ox 98 98 O2 Delivery Room Air Room Air Blood Pressure Mean: 96 Progress Progress Note : Progress Note With eye exam performed using tetracaine and fluorescein dye under the black light with magnification there was a small superficial lateral conjunctival abrasion and area of inflammation. No foreign body was visualized. Patient's vision was intact. He had tobramycin ophthalmic ointment applied and a eye patch placed over his eye after that. Then a take-home pack of hydrocodone/acetaminophen 5/325 mg pills 1 every 6 hours as needed for severe pain #4 were supplied to the patient. He can use these for severe pain in the next 24 hours. Otherwise use ibuprofen 800 mg every 8 hours as needed for pain. If not having improvement by Wednesday he should be seen by eye doctor for more formal exam. He was advised to use the tobramycin ophthalmic ointment quarter inch ribbon every 8 hours or 3 times a day for the next 5 days. Departure Impression Primary Impression: Injury of conjunctiva and corneal abrasion without foreign body, right eye, initial encounter Additional Impression: Contusion, eye, right Qualified Codes: S05.11XA - Contusion of eyeball and orbital tissues, right eye, initial encounter Disposition: 01 HOME, SELF-CARE Condition: Stable Departure-Patient Inst. Decision time for Depature: 21:51 Referrals: SELFHAROON MD (PCP/Family) Primary Care Physician Patient Instructions: Corneal Abrasion ED, Eye Contusion (DC), How to Use Eye Drops and Eye Ointment ED Add. Discharge Instructions: Apply a thin ribbon, approximately 1/4 inch of the eye ointment, to the right eye 3 times a day. Use the eye patch for the next 24 to 48 hours. If you are still having pain or not improving by Wednesday then check with Dr. Marva meehan for more formal eye exam. May use an ice pack 15 to 20 minutes every few hours to help with pain and inflammation as well. For severe pain in the next 24 hours you could use the Hydrocodone/Acetaminophen 5/325 mg pill, 1 every 6 hours as needed for severe pain. Ibuprofen 800 mg every 8 hours could also help with pain and inflammation. All discharge instructions reviewed with patient and/or family. Voiced understanding. Images Eye 1 - Abrasion (Superficial area of abrasion and forcing dye uptake right lateral eye along with erythematous inflammation to the conjunctiva. No foreign body seen), Dye uptake (fluorescein) BEV MONTENEGRO MD Oct 21, 2022 21:54
[2022-10-21 22:00] VITALS: BP 125/82
[2022-10-21] MEDS ORDERED: MECL-215 PO (22:35)
== END 2022-10-21 22:00 | disposition home or self-care (01) ==
LOC: EDUNIT# 20:53 → ER FS 20:54
DX: S05.11XA Contusion of eyeball and orbital tissues, right eye, initial encounter (principal); S05.01XA Injury of conjunctiva and corneal abrasion without foreign body, right eye, initial encounter; F17.210 Nicotine dependence, cigarettes, uncomplicated; Z28.310 Unvaccinated for COVID-19; X58.XXXA Exposure to other specified factors, initial encounter
CPT/HCPCS: 99283